=== PATIENT | male | born 1960 | race Caucasian/White ===

== ENCOUNTER 2019-07-10 11:15 | Inpatient (IN) | payer MEDICARE ==
[2019-07-10] MEDS ORDERED: SODIUM CHLORIDE 0.9% 1,000 ML IV STA ×2 (11:38)
[2019-07-10] MEDS ORDERED: INSULIN REGULAR 100 UNIT/ML VIAL IV ONE (11:41)
--- NOTE | 2019-07-10 11:44 | ED ---
General Adult HPI - General Chief complaint: Recheck/Abnormal Lab/Rx Stated complaint: Hyperglycemic Time Seen by Provider: 07/10/19 11:20 Source: patient, RN notes reviewed Mode of arrival: ambulatory Limitations: no limitations - History of Present Illness Initial comments: Patient is a pleasant 58-year-old male presenting to the emergency department with concerns for hyperglycemia. Patient has been off his insulin and metformin for the past at least 3 months. Patient has not checked his sugar and at least 2 months. Patient has had increased thirst and urinary frequency. Patient states his urine smells like sugar. He also states that is sticky. Patient checked his blood sugar today at 566. No fevers. No upper respiratory symptoms. No abdominal pain. - Related Data Allergies Allergy/AdvReac Type Severity Reaction Status Date / Time No Known Allergies Allergy Verified 07/10/19 11:23 Review of Systems ROS Statement: Those systems with pertinent positive or pertinent negative responses have been documented in the HPI. ROS Other: All systems not noted in ROS Statement are negative. Constitutional: Denies: fever Eyes: Denies: eye pain ENT: Denies: ear pain Respiratory: Denies: cough, dyspnea Cardiovascular: Denies: chest pain Endocrine: Reports: polydipsia, polyuria. Denies: fatigue Gastrointestinal: Denies: abdominal pain, nausea, vomiting Genitourinary: Reports: as per HPI. Denies: dysuria Musculoskeletal: Denies: back pain Skin: Denies: rash Neurological: Denies: weakness Past Medical History Past Medical History: COPD, Diabetes Mellitus, Fibromyalgia History of Any Multi-Drug Resistant Organisms: None Reported Past Surgical History: Appendectomy, Coronary Bypass/CABG, Heart Catheterization With Stent Smoking Status: Current every day smoker Past Alcohol Use History: Rare Past Drug Use History: Marijuana General Exam Limitations: no limitations General appearance: alert, in no apparent distress, obese Head exam: Present: normocephalic Eye exam: Present: normal appearance Neck exam: Present: normal inspection Respiratory exam: Present: wheezes (Mild expiratory wheeze) Cardiovascular Exam: Present: regular rate, normal rhythm GI/Abdominal exam: Present: soft. Absent: tenderness Extremities exam: Present: normal inspection. Absent: pedal edema, calf tenderness Neurological exam: Present: alert Psychiatric exam: Present: normal affect, normal mood Skin exam: Present: normal color Course Vital Signs 07/10/19 11:17 Temperature 98.9 F Pulse Rate 84 Respiratory 18 Rate Blood Pressure 155/98 O2 Sat by Pulse 93 L Oximetry - Reevaluation(s) Reevaluation #1: 07/10/19 11:44 Patient is a smoker with history of COPD. Patient denies any dyspnea and refuses nebulizer treatment. Medical Decision Making - Medical Decision Making Patient reevaluated and resting comfortably in bed. Blood sugar started to improve. Patient is acetone positive. Patient is updated on results and plan. Dr. Solitario has been paged for admission covering for hospital call. Patient is now agreeable to have chest x-ray done. Case was crusted detail with Dr. Isaac, who will admit covering for hospital call. Admission orders written. - Lab Data Result diagrams: 07/10/19 11:51 07/10/19 11:51 Lab Results 07/10/19 07/10/19 07/10/19 Range/Units 11:51 11:51 11:51 WBC 5.9 (3.8-10.6) k/uL RBC 5.52 (4.30-5.90) m/uL Hgb 16.5 (13.0-17.5) gm/dL Hct 51.4 (39.0-53.0) % MCV 93.1 (80.0-100.0) fL MCH 29.8 (25.0-35.0) pg MCHC 32.0 (31.0-37.0) g/dL RDW 13.1 (11.5-15.5) % Plt Count 182 (150-450) k/uL Neutrophils % 53 % Lymphocytes % 34 % Monocytes % 7 % Eosinophils % 2 % Basophils % 1 % Neutrophils # 3.1 (1.3-7.7) k/uL Lymphocytes # 2.0 (1.0-4.8) k/uL Monocytes # 0.4 (0-1.0) k/uL Eosinophils # 0.1 (0-0.7) k/uL Basophils # 0.1 (0-0.2) k/uL Sodium 132 L (137-145) mmol/L Potassium 4.6 (3.5-5.1) mmol/L Chloride 100 (98-107) mmol/L Carbon Dioxide 24 (22-30) mmol/L Anion Gap 8 mmol/L BUN 19 (9-20) mg/dL Creatinine 0.52 L (0.66-1.25) mg/dL Est GFR (CKD-EPI)AfAm >90 (>60 ml/min/1.73 sqM) Est GFR (CKD-EPI)NonAf >90 (>60 ml/min/1.73 sqM) Glucose 436 H (74-99) mg/dL POC Glucose (mg/dL) (75-99) mg/dL POC Glu Electronic Gaming Device Supervisor ID Calcium 9.4 (8.4-10.2) mg/dL Total Bilirubin 0.5 (0.2-1.3) mg/dL AST 24 (17-59) U/L ALT 24 (4-49) U/L Alkaline Phosphatase 126 (38-126) U/L Total Protein 6.8 (6.3-8.2) g/dL Albumin 3.7 (3.5-5.0) g/dL Urine Color Light Yellow Urine Appearance Clear (Clear) Urine pH 5.0 (5.0-8.0) Ur Specific [place] 1.034 (1.001-1.035) Urine Protein Negative (Negative) Urine Glucose (UA) 4+ H (Negative) Urine Ketones 2+ H (Negative) Urine Blood Negative (Negative) Urine Nitrite Negative (Negative) Urine Bilirubin Negative (Negative) Urine Urobilinogen <2.0 (<2.0) mg/dL Ur Leukocyte Esterase Negative (Negative) Acetone, Qual Positive (Negative) 07/10/19 07/10/19 07/10/19 Range/Units 12:09 12:38 13:21 WBC (3.8-10.6) k/uL RBC (4.30-5.90) m/uL Hgb (13.0-17.5) gm/dL Hct (39.0-53.0) % MCV (80.0-100.0) fL MCH (25.0-35.0) pg MCHC (31.0-37.0) g/dL RDW (11.5-15.5) % Plt Count (150-450) k/uL Neutrophils % % Lymphocytes % % Monocytes % % Eosinophils % % Basophils % % Neutrophils # (1.3-7.7) k/uL Lymphocytes # (1.0-4.8) k/uL Monocytes # (0-1.0) k/uL Eosinophils # (0-0.7) k/uL Basophils # (0-0.2) k/uL Sodium (137-145) mmol/L Potassium (3.5-5.1) mmol/L Chloride (98-107) mmol/L Carbon Dioxide (22-30) mmol/L Anion Gap mmol/L BUN (9-20) mg/dL Creatinine (0.66-1.25) mg/dL Est GFR (CKD-EPI)AfAm (>60 ml/min/1.73 sqM) Est GFR (CKD-EPI)NonAf (>60 ml/min/1.73 sqM) Glucose (74-99) mg/dL POC Glucose (mg/dL) 407 H 408 H 326 H (75-99) mg/dL POC Glu Electronic Gaming Device Supervisor Meli Kincaid Joanna Barrett, Kylee Calcium (8.4-10.2) mg/dL Total Bilirubin (0.2-1.3) mg/dL AST (17-59) U/L ALT (4-49) U/L Alkaline Phosphatase (38-126) U/L Total Protein (6.3-8.2) g/dL Albumin (3.5-5.0) g/dL Urine Color Urine Appearance (Clear) Urine pH (5.0-8.0) Ur Specific [place] (1.001-1.035) Urine Protein (Negative) Urine Glucose (UA) (Negative) Urine Ketones (Negative) Urine Blood (Negative) Urine Nitrite (Negative) Urine Bilirubin (Negative) Urine Urobilinogen (<2.0) mg/dL Ur Leukocyte Esterase (Negative) Acetone, Qual (Negative) Critical Care Time Critical Care Time: Yes Total Critical Care Time: 32 Disposition Clinical Impression: DKA (diabetic ketoacidoses) Disposition: ADMITTED IP TO THIS [facility] Condition: Serious Is patient prescribed a controlled substance at d/c from ED?: No Referrals: None,Stated [Primary Care Provider] - 1-2 days Decision Time: 13:40
[2019-07-10 12:07] LABS: Appearance,Urine Clear (Clear); Basophils # (A) 0.1 k/uL (0-0.2); Basophils % (A) 1 %; Bilirubin,Urine Negative (Negative); Blood,Urine Negative (Negative); Color,Urine Light Yellow; Eosinophils # (A) 0.1 k/uL (0-0.7); Eosinophils % (A) 2 %; Glucose,Urine (UA) 4+ (Negative); HCT 51.4 % (39.0-53.0); HGB 16.5 gm/dL (13.0-17.5); Leukocyte Esterase,Urine Negative (Negative); Lymphocytes % (A) 34 %; MCH 29.8 pg (25.0-35.0); MCV 93.1 fL (80.0-100.0); Mean Platelet Volume 8.3; Monocytes # (A) 0.4 k/uL (0-1.0); Monocytes % (A) 7 %; Neutrophils # (A) 3.1 k/uL (1.3-7.7); Neutrophils % (A) 53 %; Nitrite,Urine Negative (Negative); Platelet Count 182 k/uL (150-450); Protein,Urine Negative (Negative); RBC 5.52 m/uL (4.30-5.90); RDW 13.1 % (11.5-15.5); Specific Gravity,Urine 1.034 (1.001-1.035); Urobilinogen,Urine <2.0 mg/dL (<2.0); WBC 5.9 k/uL (3.8-10.6)
[2019-07-10 12:10] LABS: Glucose,Whole Blood 407 mg/dL (75-99)
[2019-07-10 12:13] LABS: Ketones,Urine 2+ (Negative)
[2019-07-10 12:40] LABS: ALT 24 U/L (4-49); AST 24 U/L (17-59); African American GFR (CKD) >90 (>60 ml/min/1.73 sqM); Albumin 3.7 g/dL (3.5-5.0); Alkaline Phosphatase 126 U/L (38-126); Anion Gap 8 mmol/L; Blood Urea Nitrogen 19 mg/dL (9-20); Calcium 9.4 mg/dL (8.4-10.2); Carbon Dioxide 24 mmol/L (22-30); Chloride 100 mmol/L (98-107); Glucose 436 mg/dL (74-99); Non-African American GFR(CKD) >90 (>60 ml/min/1.73 sqM); Potassium 4.6 mmol/L (3.5-5.1); Sodium 132 mmol/L (137-145); Total Bilirubin 0.5 mg/dL (0.2-1.3); Total Protein 6.8 g/dL (6.3-8.2)
[2019-07-10 12:40] LABS: Glucose,Whole Blood 408 mg/dL (75-99)
[2019-07-10 13:22] LABS: Glucose,Whole Blood 326 mg/dL (75-99)
[2019-07-10] MEDS ORDERED: NALOXONE 0.4 MG/ML 1 ML VIAL IV PRN (13:43)
[2019-07-10] MEDS ORDERED: Magnesium Replacement Protocol 1 EACH MISC MISCELLANE PRN (13:43)
[2019-07-10] MEDS ORDERED: Potassium Replacement Protocol 1 EACH MISC MISCELLANE PRN (13:43)
[2019-07-10] MEDS ORDERED: SODIUM CHLORIDE 0.9% 1,000 ML IV SCH (13:45)
[2019-07-10] MEDS ORDERED: INSULIN REGULAR 100 UNIT in SODIUM CHLORIDE 0.9% 100 ML IV SCH (14:00)
[2019-07-10 14:17] LABS: Glucose,Whole Blood 305 mg/dL (75-99)
--- NOTE | 2019-07-10 14:18 | XR ---
EXAMINATION TYPE: XR chest 2V DATE OF EXAM: 07/10/2019 HISTORY: cough. REFERENCE: NONE. FINDINGS: There has been a midline sternotomy. The heart is upper limits of normal in size. There is mild vascular prominence without edema. There i s some atelectasis in the right midlung. No definite pleural fluid is seen. IMPRESSION: 1. COPD. 2. BORDERLINE CARDIOMEGALY. 3. VASCULAR CONGESTION. 4. RIGHT MIDDLE LOBE ATELECTASIS.
[2019-07-10 15:00] LABS: VBG PH 7.34 (7.31-7.41)
[2019-07-10 15:27] LABS: Glucose,Whole Blood 301 mg/dL (75-99)
--- NOTE | 2019-07-10 15:33 | P.HPIM ---
History of Present Illness This is a pleasant 58 years old male with past medical history of type 2 diabetes mellitus, COPD, fibromyalgia, vertigo, psoriasis. He presents to the hospital because his sugar was high this morning on the meter as 566. Before he was on metformin 1000 twice a day and trulicity, however he stopped taking his medication for 2-3 months because he has no insurance and no medical doctor, is complaining of from polyuria and polydipsia No chest pain or dyspnea or abdominal pain, no nausea vomiting. No change in urine or bowel habits. He smokes about half pack per day, he does not want to quit after he consult however he agrees for nicotine patch while in-house, no alcohol, he smokes 3-4 joints off weed every day for his fibromyalgia and pain after he stopped taking Dilaudid and morphine Vitals are stable., Left showing unremarkable CBC, sodium 132, creatinine 0.5, glucose was more than 400 ask for 36, currently 305. UA is negative for infection. Positive for acetone Chest x-ray: No acute process, COPD and atelectasis Review of Systems CONSTITUTIONAL: No fever, no malaise, no fatigue. HEENT: No recent visual problems or hearing problems. Denied any sore throat. CARDIOVASCULAR: No orthopnea, PND, no palpitations, no syncope. PULMONARY: No shortness of breath, no cough, no hemoptysis. GASTROINTESTINAL: No diarrhea, no nausea, no vomiting, no abdominal pain. Normoactive bowel sounds. NEUROLOGICAL: No headaches, no weakness, no numbness. HEMATOLOGICAL: Denies any bleeding or petechiae. GENITOURINARY: Denies any burning micturition, frequency, or urgency. MUSCULOSKELETAL/RHEUMATOLOGICAL: Denies any joint pain, swelling, or any muscle pain. ENDOCRINE: Denies any polyuria or polydipsia. ROS unobtainable: due to endotracheal tube Past Medical History Past Medical History: COPD, Diabetes Mellitus, Fibromyalgia Additional Past Medical History / Comment(s): Ty II DM, Vertigo when head tilts back, Psoriasis, RAJESH LL edmena History of Any Multi-Drug Resistant Organisms: None Reported Past Surgical History: Appendectomy, Coronary Bypass/CABG, Heart Catheterization Additional Past Surgical History / Comment(s): Back-CA Past Anesthesia/Blood Transfusion Reactions: No Reported Reaction Past Psychological History: No Psychological Hx Reported Smoking Status: Current every day smoker Past Alcohol Use History: Rare Past Drug Use History: Marijuana - Past Family History Father History Unknown: Yes Family Medical History: Diabetes Mellitus Additional Family Medical History / Comment(s): of Colon CA Mother History Unknown: Yes Family Medical History: CVA/TIA Additional Family Medical History / Comment(s): Rheumatic fever-all valves replaced multiple times. from CVA Medications and Allergies Home Medications Medication Instructions Recorded Confirmed Type No Known Home Medications 07/10/19 07/10/19 History Allergies Allergy/AdvReac Type Severity Reaction Status Date / Time No Known Allergies Allergy Verified 07/10/19 14:35 Physical Exam Vitals: Vital Signs Temp Pulse Pulse Resp BP Pulse Ox 07/10/19 14:39 98.3 F 66 18 96 07/10/19 14:14 70 18 125/80 98 07/10/19 11:17 98.9 F 84 18 155/98 93 L Intake and Output 07/10/19 07/10/19 07/10/19 06:59 14:59 22:59 Intake Total 400 Balance 400 Intake: Intake, IV Titration 400 Amount Sodium Chloride 0.9% 1, 400 000 ml @ 200 mls/hr IV . Q5H [facility] Rx#:[id number] Other: Voiding Method Urinal Weight 156.943 kg -GENERAL: The patient is alert and oriented x3, not in any acute distress. Obese HEENT: Pupils are round and equally reacting to light. EOMI. No scleral icterus. No conjunctival pallor. Normocephalic, atraumatic. No pharyngeal erythema. No thyromegaly. CARDIOVASCULAR: S1 and S2 present. No murmurs, rubs, or gallops. PULMONARY: Chest is clear to auscultation, no wheezing or crackles. ABDOMEN: Soft, nontender, nondistended, normoactive bowel sounds. No palpable organomegaly. MUSCULOSKELETAL: No joint swelling or deformity. EXTREMITIES: No cyanosis, clubbing, or pedal edema. NEUROLOGICAL: Gross neurological examination did not reveal any focal deficits. SKIN: No rashes. No petechiae Results CBC & Chem 7: 07/10/19 11:51 07/10/19 11:51 Labs: Abnormal Lab Results - Last 24 Hours (Table) 07/10/19 07/10/19 07/10/19 Range/Units 11:51 11:51 12:09 Sodium 132 L (137-145) mmol/L Creatinine 0.52 L (0.66-1.25) mg/dL Glucose 436 H (74-99) mg/dL POC Glucose (mg/dL) 407 H (75-99) mg/dL Urine Glucose (UA) 4+ H (Negative) Urine Ketones 2+ H (Negative) 07/10/19 07/10/19 07/10/19 Range/Units 12:38 13:21 14:16 Sodium (137-145) mmol/L Creatinine (0.66-1.25) mg/dL Glucose (74-99) mg/dL POC Glucose (mg/dL) 408 H 326 H 305 H (75-99) mg/dL Urine Glucose (UA) (Negative) Urine Ketones (Negative) Thrombosis Risk Factor Assmnt - Choose All That Apply Each Factor Represents 1 point: Age 41-60 years, Obesity (BMI >25), Swollen legs (current) Other Risk Factors: No Other congenital or acquired thrombophilia - If yes, enter type in comment: Yes Thrombosis Risk Factor Assessment Total Risk Factor Score: 3 Thrombosis Risk Factor Assessment Level: Moderate Risk Assessment and Plan Assessment: Type 2 diabetes mellitus with hyperglycemia, uncontrolled Dehydration Noncompliance to medication and follow-up with PCP due to lack of insurance Fibromyalgia History of Vertigo History of psoriasis COPD, not an active issue Substance abuse including marijuana Plan: This is a pleasant 58 years old male who presents with uncontrolled high sugar d ue to noncompliance. Start metformin. Start patient on insulin sliding scale and monitor his sugar. Continue with IV fluids. Patient is counseled to quit his substance abuse, however he does not want to. Continue with nicotine patch. Consult to social work associate for lack of insurance Labs and medication were reviewed.. Continue same treatment. Continue with symptomatic treatment. Resume home medication. Monitor lytes and vitals. DVT and GI prophylaxis. Further recommendations of the clinical course of the patient DVT prophylaxis: Subcutaneous heparin GI Prophylaxis: Pepcid
[2019-07-10] MEDS ORDERED: D5-0.45% NACL WITH KCL 20MEQ/L 1,000 ML IV SCH (16:00)
[2019-07-10 16:50] LABS: Glucose,Whole Blood 311 mg/dL (75-99)
[2019-07-10] MEDS: metFORMIN 500 MG TAB PO SCH (17:29)
[2019-07-10] MEDS: INSULIN ASPART (NovoLOG) 100 UNIT/ML VIAL SQ SCH ×2 (17:29→20:17)
[2019-07-10] MEDS: NICOTINE 21MG/24HR PATCH TRANSDERM SCH (17:29)
[2019-07-10 20:06] LABS: Glucose,Whole Blood 226 mg/dL (75-99)
[2019-07-10] MEDS: FAMOTIDINE 20 MG/2 ML VIAL IV SCH (20:17)
[2019-07-10] MEDS: HEPARIN SODIUM,PORCINE 5,000 UNIT/ML 1 ML VIAL SQ SCH (20:17)
[2019-07-10] MEDS: amLODIPine 5 MG TAB PO SCH (20:17)
[2019-07-10] MEDS: SODIUM CHLORIDE 0.9% 1,000 ML IV SCH (20:19)
[2019-07-11 06:14] LABS: Glucose,Whole Blood 286 mg/dL (75-99)
[2019-07-11] MEDS: metFORMIN 500 MG TAB PO SCH ×2 (06:26→17:35)
[2019-07-11] MEDS: INSULIN ASPART (NovoLOG) 100 UNIT/ML VIAL SQ SCH ×4 (06:26→21:27)
[2019-07-11] MEDS: HEPARIN SODIUM,PORCINE 5,000 UNIT/ML 1 ML VIAL SQ SCH ×2 (07:52→21:26)
[2019-07-11] MEDS: amLODIPine 5 MG TAB PO SCH (07:52)
[2019-07-11] MEDS: FAMOTIDINE 20 MG/2 ML VIAL IV SCH ×2 (07:52→21:27)
[2019-07-11] MEDS: NICOTINE 21MG/24HR PATCH TRANSDERM SCH (07:52)
[2019-07-11] MEDS: SODIUM CHLORIDE 0.9% 1,000 ML IV SCH (07:53)
[2019-07-11 11:37] VITALS: BMI 49.5
[2019-07-11 11:50] LABS: Glucose,Whole Blood 313 mg/dL (75-99)
[2019-07-11] MEDS: NYSTATIN 100,000 UNIT/ML SUSP 500,000 UNIT/5 ML CUP PO SCH ×3 (12:23→21:26)
[2019-07-11] MEDS ORDERED: BENZOCAINE SPRAY 1 CAN TOPICAL STA (13:00)
[2019-07-11] MEDS ORDERED: BENZOCAINE SPRAY 1 CAN MUCOUS MEM PRN (13:00)
--- NOTE | 2019-07-11 13:06 | P.PN ---
Subjective This is a pleasant 58 years old male with past medical history of type 2 diabetes mellitus, COPD, fibromyalgia, vertigo, psoriasis. He presents to the hospital because his sugar was high this morning on the meter as 566. Before he was on metformin 1000 twice a day and trulicity, however he stopped taking his medication for 2-3 months because he has no insurance and no medical doctor, is complaining of from polyuria and polydipsia No chest pain or dyspnea or abdominal pain, no nausea vomiting. No change in urine or bowel habits. He smokes about half pack per day, he does not want to quit after he consult however he agrees for nicotine patch while in-house, no alcohol, he smokes 3-4 joints off weed every day for his fibromyalgia and pain after he stopped taking Dilaudid and morphine Vitals are stable., Left showing unremarkable CBC, sodium 132, creatinine 0.5, glucose was more than 400 ask for 36, currently 305. UA is negative for in fection. Positive for acetone Chest x-ray: No acute process, COPD and atelectasis 07/11/2019 Patient is awake, he was complaining from soreness in his tongue after his prescription white flakes felt to be related to fungal infection, patient was started on nystatin oral serial and benzocaine spray as needed. Vitals are stable. Sugar still elevated 313, despite starting on metformin 1000 twice a day, Actos discussed with the patient and he agrees to start insulin 70:30 15 units twice daily. Remains on normal saline at 75 mg Per hour Patient is counseled extensively about the importance of follow-up including with his family doctor, with preload supervisor once a year and asphalt smoother was here and he agrees social media sr strategy manager consulted for insurance issues Hemoglobin A1c is pending Review of Systems CONSTITUTIONAL: No fever, no malaise, no fatigue. HEENT: No recent visual problems or hearing problems. Denied any sore throat. CARDIOVASCULAR: No orthopnea, PND, no palpitations, no syncope. PULMONARY: No shortness of breath, no cough, no hemoptysis. GASTROINTESTINAL: No diarrhea, no nausea, no vomiting, no abdominal pain. Normoactive bowel sounds. NEUROLOGICAL: No headaches, no weakness, no numbness. HEMATOLOGICAL: Denies any bleeding or petechiae. GENITOURINARY: Denies any burning micturition, frequency, or urgency. MUSCULOSKELETAL/RHEUMATOLOGICAL: Denies any joint pain, swelling, or any muscle pain. ENDOCRINE: Denies any polyuria or polydipsia. Objective - Vital Signs Vital signs: Vital Signs Temp 97.3 F L 07/11/19 11:00 Pulse 65 07/11/19 11:00 Resp 20 07/11/19 11:00 BP 146/85 07/11/19 11:00 Pulse Ox 92 L 07/11/19 11:00 Intake & Output 07/10/19 07/11/19 07/11/19 18:59 06:59 18:59 Intake Total 2773.087 3340 320 Balance 4053.574 4012 320 Weight 156.943 kg 156.6 kg 156.6 kg Intake: IV 10 Invasive Line 1 10 Intake, IV Titration 408.983 975 Amount Insulin Regular 100 unit 8.983 In Sodium Chloride 0.9% 100 ml @ 0.05 UNITS/KG/HR 7.926 mls/hr IV .[id number] [facility] Rx#:[id number] Sodium Chloride 0.9% 1, 400 000 ml @ 200 mls/hr IV . Q5H [facility] Rx#:[id number] Sodium Chloride 0.9% 1, 975 000 ml @ 75 mls/hr IV . [id number] [facility] Rx#:[id number] Oral 600 600 320 Other: Voiding Method Urinal Urinal Urinal # Voids 1 2 - Exam -GENERAL: The patient is alert and oriented x3, not in any acute distress. Obese HEENT: Pupils are round and equally reacting to light. EOMI. No scleral icterus. No conjunctival pallor. Normocephalic, atraumatic. No pharyngeal erythema. No thyromegaly. CARDIOVASCULAR: S1 and S2 present. No murmurs, rubs, or gallops. PULMONARY: Chest is clear to auscultation, no wheezing or crackles. ABDOMEN: Soft, nontender, nondistended, normoactive bowel sounds. No palpable organomegaly. MUSCULOSKELETAL: No joint swelling or deformity. -EXTREMITIES: No cyanosis, clubbing, or pedal edema. Prolonged toenails NEUROLOGICAL: Gross neurological examination did not reveal any focal deficits. SKIN: No rashes. No petechiae - Labs CBC & Chem 7: 07/10/19 11:51 07/10/19 11:51 Labs: Abnormal Lab Results - Last 24 Hours (Table) 07/10/19 07/10/19 07/10/19 Range/Units 13:21 14:16 15:25 POC Glucose (mg/dL) 326 H 305 H 301 H (75-99) mg/dL 07/10/19 07/10/19 07/11/19 Range/Units 16:48 20:04 06:10 POC Glucose (mg/dL) 311 H 226 H 286 H (75-99) mg/dL 07/11/19 Range/Units 11:49 POC Glucose (mg/dL) 313 H (75-99) mg/dL
[2019-07-11 16:55] LABS: Glucose,Whole Blood 257 mg/dL (75-99)
[2019-07-11] MEDS ORDERED: INSULN ASP PRT/INSULIN ASPART 100 UNIT/ML 10 ML VIAL SQ SCH (17:30)
[2019-07-11 20:44] LABS: Glucose,Whole Blood 257 mg/dL (75-99)
[2019-07-12] MEDS: metFORMIN 500 MG TAB PO SCH ×2 (06:37→17:46)
[2019-07-12 07:04] LABS: Glucose,Whole Blood 249 mg/dL (75-99)
[2019-07-12] MEDS ORDERED: INSULN ASP PRT/INSULIN ASPART 100 UNIT/ML 10 ML VIAL SQ SCH ×3 (07:30→17:30)
[2019-07-12 08:07] VITALS: RESP 18
[2019-07-12] MEDS: NYSTATIN 100,000 UNIT/ML SUSP 500,000 UNIT/5 ML CUP PO SCH ×3 (08:18→17:46)
[2019-07-12] MEDS: FAMOTIDINE 20 MG/2 ML VIAL IV SCH (08:18)
[2019-07-12] MEDS: amLODIPine 5 MG TAB PO SCH (08:19)
[2019-07-12] MEDS: NICOTINE 21MG/24HR PATCH TRANSDERM SCH (08:19)
[2019-07-12] MEDS: HEPARIN SODIUM,PORCINE 5,000 UNIT/ML 1 ML VIAL SQ SCH (08:19)
[2019-07-12] MEDS: INSULIN ASPART (NovoLOG) 100 UNIT/ML VIAL SQ SCH ×3 (08:20→17:46)
[2019-07-12 11:23] LABS: Hemoglobin A1C 15.7 % (4.0-6.0)
[2019-07-12 12:00] LABS: Glucose,Whole Blood 240 mg/dL (75-99)
[2019-07-12] MEDS ORDERED: INSULN ASP PRT/INSULIN ASPART 100 UNIT/ML 10 ML VIAL SQ ONE (12:15)
[2019-07-12 16:16] VITALS: BP 138/85; PULSE 70; TEMP 98.2
[2019-07-12 16:55] LABS: Glucose,Whole Blood 252 mg/dL (75-99)
--- NOTE | 2019-07-12 23:42 | P.DS ---
Providers Date of admission: 07/10/19 13:43 Attending physician: Mart Isaac MD Primary care physician: Stated None Hospital Course: Diagnoses: Type 2 diabetes mellitus with hyperglycemia, uncontrolled Dehydration Noncompliance to medication and follow-up with PCP due to lack of insurance Hypertension, uncontrolled on admission Fibromyalgia Morbid Obesity with BMI of 49.5 History of Vertigo History of psoriasis COPD, not an active issue Substance abuse including marijuana Hospital course: This is a pleasant 58 years old male with past medical history of type 2 diabetes mellitus, COPD, fibromyalgia, vertigo, psoriasis. He presents to the hospital because his sugar was high in the morning on his glucometer as 566.Before he was on metformin 1000 twice a day and trulicity, however he stopped taking his medication for 2-3 months because he has no insurance and no medical doctor to follow up with, however later on patient found and he admits that he has Medicare but he does not have medicated which he wants to get that's why he stopped taking his medication and to follow up with PCP. His hemoglobin A1c elevated at 15.7%. Patient was started on metformin 1000 twice a day and insulin NovoLog 70:30 as 30 units twice a day (at first he wanted to take only 25 units twice a day, later in the afternoon his sugar was still elevated at 252, I talked to the patient through the phone from outside the hospital and instructed him to increase his dose to 30 units twice a day and he agrees) diabetic patient is a provided and patient was taught by the bedside nurse how to inject himself with insulin which actually he did and he was comfortable taking his insulin injections at home Patient was counseled about the importance of adherence to therapy and medication and he agrees. Also patient was counseled extensively about checking his sugar 4 times a day, to call his doctor , his blood pressure on discharge was 138/85 or to ED if his sugars less than 70 or more than 400, #symptoms of hypo-glycemia and how to deal with it Patient is counseled to lose weight and he agrees Norvasc was added for better blood pressure control, his blood pressure on discharge was 138/85 Importance of adherence to therapy is explained to the patient extensively and he verbalized understanding and acceptance Problems and management plan were discussed with the patient and he verbalized understanding and acceptance Patient was found stable and can be discharged home however he needs follow-up as an outpatient. Patient was instructed to follow up with PCP within one week and patient agrees. Patient was provided with the PCP name Dr. Garza, whom he wants us to call and make appointment by himself. Patient instructed if he couldn't find PCP within one week to call his health insurance to locate any by PCP for him and he agrees. Patient was informed about the [employer] [facility] for cheaper medicine (he showed me his Smart phone), is aware that he can get his metformin and Norvasc for $2-$4 or free from certain pharmacy like [facility]. Also confirmed with human services case manager the cost of his insulin NovoLog 70:30 is about $24 and he agrees for the cost. N.B: I wanted to keep the patient on Friday for better sugar control and to make appointment for the patient tomorrow, however he was adamant to leave today because he said [facility] TOM[facility] morning. Patient looks reliable and he showed intention to follow all instructions Gen: patient is a AAOx3, no distress. Obese CVS: S1-S2, RRR, no murmur Lungs: B/L CTA, no wheezing Abdomen: soft, no distention, no tenderness, positive bowel sounds Extremity: no leg edema or induration Time spent more than 35 minutes Patient Condition at Discharge: Serious Plan - Discharge Summary Discharge Rx Participant: Yes New Discharge Prescriptions: New metFORMIN HCL [Glucophage] 1,000 mg PO BID-W/MEALS #60 tab Nicotine 21Mg/24Hr Patch [Habitrol] 1 patch TRANSDERM DAILY #10 patch amLODIPine [Norvasc] 5 mg PO DAILY #30 tab Insuln Asp Prt/Insulin Aspart [NovoLOG MIX 70-30 VIAL] 25 unit SQ AC-BID #1 vial Discharge Medication List Insuln Asp Prt/Insulin Aspart [NovoLOG MIX 70-30 VIAL] 25 unit SQ AC-BID #1 vial 07/12/19 [Rx] Nicotine 21Mg/24Hr Patch [Habitrol] 1 patch TRANSDERM DAILY #10 patch 07/12/19 [Rx] amLODIPine [Norvasc] 5 mg PO DAILY #30 tab 07/12/19 [Rx] metFORMIN HCL [Glucophage] 1,000 mg PO BID-W/MEALS #60 tab 07/12/19 [Rx] Follow up Appointment(s)/Referral(s): Marvin Linder MD [REFERRING] - 1 Week (Please call Friday to make an appointment for follow up.) None,Stated [Primary Care Provider] - 1-2 days Patient Instructions/Handouts: Diabetic Ketoacidosis (DC), Hypoglycemia in a Person with Diabetes (DC), Hypoglycemia in a Person with Diabetes (GEN) Activity/Diet/Wound Care/Special Instructions: Pt does not have prescription drug coverage - he will need to go home on generic insulins/medications Utilize [employer] for prescription discounts. Increase Novolin 70/30 injection to 30 units twice a day (instead of 25 units). Follow up with Dr. Linder. Call Friday to make appointment. See print out from manager ethics for consistent carbohydrate diet. please call you health insurance provider to find a primary care doctor in the area you live, call your primary care doctor to make appointment within one week Check your sugar with glucometer 4 times a day, before each meal and at bedtime, keep the results in a log book and bring it to your doctor on your appointment -Call 911 and go to the nearest emergency room if your glucose less than 70 or more than 400 Discharge Disposition: HOME SELF-CARE
== END 2019-07-12 18:40 | disposition home or self-care (01) | DRG 638 ==
LOC: EC 11:15 → 3SCARD 13:43
PROVIDERS: ADMIT Internal Medicine; ATTEND Internal Medicine
DX: E11.65 Type 2 diabetes mellitus with hyperglycemia (principal); Z68.42 Body mass index [BMI] 45.0-49.9, adult; E66.01 Morbid (severe) obesity due to excess calories; E86.0 Dehydration; F17.210 Nicotine dependence, cigarettes, uncomplicated; J44.9 Chronic obstructive pulmonary disease, unspecified; M79.7 Fibromyalgia; L40.9 Psoriasis, unspecified; I25.10 Atherosclerotic heart disease of native coronary artery without angina pectoris; T38.3X6A Underdosing of insulin and oral hypoglycemic [antidiabetic] drugs, initial encounter; Z11.59 Encounter for screening for other viral diseases; Z91.120 Patient's intentional underdosing of medication regimen due to financial hardship; Z95.1 Presence of aortocoronary bypass graft; Z95.5 Presence of coronary angioplasty implant and graft; Z90.49 Acquired absence of other specified parts of digestive tract; Z80.0 Family history of malignant neoplasm of digestive organs; Z82.3 Family history of stroke; Z83.3 Family history of diabetes mellitus
CPT/HCPCS: 36415; 71046; 80053; 81003; 82009; 82803; 83036; 83880; 85025; 87635; 93005; 96360; 99291

== ENCOUNTER 2021-01-19 14:48 | Emergency (ER) | payer MEDICARE ==
[2021-01-19 15:24] VITALS: BP 127/80; PULSE 60; RESP 20; TEMP 98.8
[2021-01-19] MEDS ORDERED: MORPHINE SULFATE 4 MG/ML SYRINGE IVP STA ×2 (17:10→19:35)
[2021-01-19] MEDS ORDERED: SODIUM CHLORIDE 0.9% 1,000 ML IV STA (17:11)
[2021-01-19 17:42] LABS: Basophils % (A) 1 %; Eosinophils # (A) 0.1 k/uL (0-0.7); Eosinophils % (A) 1 %; HCT 52.2 % (39.0-53.0); HGB 16.7 gm/dL (13.0-17.5); Lymphocytes # (A) 1.5 k/uL (1.0-4.8); Lymphocytes % (A) 33 %; MCH 28.4 pg (25.0-35.0); Mean Platelet Volume 7.6; Monocytes # (A) 0.6 k/uL (0-1.0); Monocytes % (A) 12 %; Neutrophils # (A) 2.4 k/uL (1.3-7.7); Neutrophils % (A) 51 %; Platelet Count 187 k/uL (150-450); RBC 5.86 m/uL (4.30-5.90); RDW 14.1 % (11.5-15.5); WBC 4.7 k/uL (3.8-10.6)
--- NOTE | 2021-01-19 17:46 | ED ---
General Adult HPI - General Chief complaint: Extremity Problem,Nontraumatic Stated complaint: Cellulitis Left Leg Time Seen by Provider: 01/19/21 16:34 Source: patient, RN notes reviewed Mode of arrival: ambulatory Limitations: no limitations - History of Present Illness Initial comments: 60-year-old male with a past medical history of fibromyalgia, COPD, diabetes mellitus, morbid obesity, psoriasis presents to the emergency room for left leg pain. Patient states he is having left lower leg pain and erythema for the past few weeks. States it started out as blisters in the back of his leg and then became weepy and more painful. States it is swollen. Patient denies fevers but does admit to chills.patient is diabetic. Patient is supposed to be on blood thinners for cardiac reasons apparently but does not take these for Patient has no other complaints at this time including shortness of breath, chest pain, abdominal pain, nausea or vomiting, headache, or visual changes. - Related Data Home Medications Medication Instructions Recorded Confirmed Insulin NPH Hum/Reg Insulin Hm 40 unit SQ BID@0430,1630 01/19/21 01/19/21 [NovoLIN 70-30 100 UNIT/ML VIAL] Previous Rx's Medication Instructions Recorded metFORMIN HCL [Glucophage] 1,000 mg PO BID-W/MEALS #60 tab 07/12/19 Cephalexin [Keflex] 500 mg PO Q6HR 10 Days #40 cap 01/19/21 Allergies Allergy/AdvReac Type Severity Reaction Status Date / Time No Known Allergies Allergy Verified 01/19/21 15:24 Review of Systems ROS Statement: Those systems with pertinent positive or pertinent negative responses have been documented in the HPI. ROS Other: All systems not noted in ROS Statement are negative. Past Medical History Past Medical History: COPD, Diabetes Mellitus, Fibromyalgia Additional Past Medical History / Comment(s): Ty II DM, Vertigo when head tilts back, Psoriasis, RAJESH LL edmena History of Any Multi-Drug Resistant Organisms: None Reported Past Surgical History: Appendectomy, Coronary Bypass/CABG, Heart Catheterization Additional Past Surgical History / Comment(s): Back-CA Past Anesthesia/Blood Transfusion Reactions: No Reported Reaction Past Psychological History: No Psychological Hx Reported Smoking Status: Never smoker Past Alcohol Use History: Rare Past Drug Use History: Marijuana - Past Family History Father History Unknown: Yes Family Medical History: Diabetes Mellitus Additional Family Medical History / Comment(s): of Colon CA Mother History Unknown: Yes Family Medical History: CVA/TIA Additional Family Medical History / Comment(s): Rheumatic fever-all valves replaced multiple times. from CVA General Exam Limitations: no limitations General appearance: alert, in no apparent distress Head exam: Present: atraumatic Eye exam: Present: normal appearance, PERRL, EOMI. Absent: scleral icterus, conjunctival injection ENT exam: Present: normal exam, mucous membranes moist Neck exam: Present: normal inspection, full ROM. Absent: tenderness Respiratory exam: Present: normal lung sounds bilaterally. Absent: respiratory distress, wheezes Cardiovascular Exam: Present: regular rate, normal rhythm, normal heart sounds Extremities exam: Present: normal capillary refill (cap refill less than 2 seconds, DP pulse 2+ left lower extremity), calf tenderness (Calf tenderness is noted generalized fashion.), other (Erythema and drainage noted of the left calf.) Course Vital Signs 01/19/21 15:21 Temperature 98.8 F Pulse Rate 60 Respiratory 20 Rate Blood Pressure 127/80 O2 Sat by Pulse 95 Oximetry Medical Decision Making - Medical Decision Making Vitals are stable. Patient is afebrile. CBC shows a normal white blood cell count. CMP unremarkable. X-ray of the tib-fib shows subcutaneous edema without fracture seen. Ultrasound shows no evidence of DVT in the left leg. Discussed inpatient versus outpatient admission with patient. I did offer doing a couple days of IV antibiotics. However pt lives alone and has a cat and wants to go home. We will try outpatient therapy as he has not been on antibiotics yet however if symptoms do not improve he will return to the emergency room. - Lab Data Result diagrams: 01/19/21 17:35 01/19/21 17:35 Lab Results 01/19/21 01/19/21 01/19/21 Range/Units 17:35 17:35 17:35 WBC 4.7 (3.8-10.6) k/uL RBC 5.86 (4.30-5.90) m/uL Hgb 16.7 (13.0-17.5) gm/dL Hct 52.2 (39.0-53.0) % MCV 89.0 (80.0-100.0) fL MCH 28.4 (25.0-35.0) pg MCHC 32.0 (31.0-37.0) g/dL RDW 14.1 (11.5-15.5) % Plt Count 187 (150-450) k/uL MPV 7.6 Neutrophils % 51 % Lymphocytes % 33 % Monocytes % 12 % Eosinophils % 1 % Basophils % 1 % Neutrophils # 2.4 (1.3-7.7) k/uL Lymphocytes # 1.5 (1.0-4.8) k/uL Monocytes # 0.6 (0-1.0) k/uL Eosinophils # 0.1 (0-0.7) k/uL Basophils # 0.0 (0-0.2) k/uL Sodium 135 L (137-145) mmol/L Potassium 4.6 (3.5-5.1) mmol/L Chloride 102 (98-107) mmol/L Carbon Dioxide 27 (22-30) mmol/L Anion Gap 6 mmol/L BUN 18 (9-20) mg/dL Creatinine 0.59 L (0.66-1.25) mg/dL Est GFR (CKD-EPI)AfAm >90 (>60 ml/min/1.73 sqM) Est GFR (CKD-EPI)NonAf >90 (>60 ml/min/1.73 sqM) Glucose 96 (74-99) mg/dL Plasma Lactic Acid Nikolai 0.9 (0.7-2.0) mmol/L Calcium 8.8 (8.4-10.2) mg/dL Total Bilirubin 0.4 (0.2-1.3) mg/dL AST 41 (17-59) U/L ALT 43 (4-49) U/L Alkaline Phosphatase 79 (38-126) U/L Total Protein 7.1 (6.3-8.2) g/dL Albumin 3.6 (3.5-5.0) g/dL Disposition Clinical Impression: Cellulitis Disposition: HOME SELF-CARE Condition: Good Instructions (If sedation given, give patient instructions): Cellulitis (ED) Additional Instructions: Please take antibiotic as directed. Follow-up with your doctor. If symptoms are worsening return immediately to the emergency room. Prescriptions: Cephalexin [Keflex] 500 mg PO Q6HR 10 Days #40 cap Is patient prescribed a controlled substance at d/c from ED?: No Referrals: None,Stated [Primary Care Provider] - 1-2 days Time of Disposition: 19:30
[2021-01-19 17:53] LABS: ALT 43 U/L (4-49); AST 41 U/L (17-59); African American GFR (CKD) >90 (>60 ml/min/1.73 sqM); Albumin 3.6 g/dL (3.5-5.0); Alkaline Phosphatase 79 U/L (38-126); Anion Gap 6 mmol/L; Blood Urea Nitrogen 18 mg/dL (9-20); Calcium 8.8 mg/dL (8.4-10.2); Carbon Dioxide 27 mmol/L (22-30); Chloride 102 mmol/L (98-107); Glucose 96 mg/dL (74-99); Non-African American GFR(CKD) >90 (>60 ml/min/1.73 sqM); Potassium 4.6 mmol/L (3.5-5.1); Sodium 135 mmol/L (137-145); Total Bilirubin 0.4 mg/dL (0.2-1.3); Total Protein 7.1 g/dL (6.3-8.2)
--- NOTE | 2021-01-19 18:13 | XR ---
EXAMINATION TYPE: XR tibia fibula LT DATE OF EXAM: 01/19/2021 COMPARISON: NONE HISTORY: Leg swelling TECHNIQUE: 4 views FINDINGS: The tibia and fibula appear intact. Ankle mortise is anatomic. Knee joint is intact. There is apparent subcutaneous edema around the lower leg. There is plantar calcaneal spurring. IMPRESSION: Subcutaneous edema. No fracture.
--- NOTE | 2021-01-19 18:38 | US ---
EXAMINATION TYPE: US venous doppler duplex LE LT DATE OF EXAM: 01/19/2021 6:26 PM COMPARISON: NONE CLINICAL HISTORY: edema. Swelling, blisters on left leg SIDE PERFORMED: Left TECHNIQUE: The lower extremity deep venous system is examined utilizing real time linear array sonog vidhya with graded compression, doppler sonography and color-flow sonography. VESSELS IMAGED: Common Femoral Vein Deep Femoral Vein Greater Saphenous Vein * Femoral Vein Popliteal Vein Small Saphenous Vein * Proximal Calf Veins (* superficial vessels) Left Leg: Negative for DVT, unable to visualize left GSV and CFV due to pt morbid obesity IMPRESSION: . There no evidence of deep vein thrombosis in the left leg.
[2021-01-19] MEDS ORDERED: cefTRIAXone IN SWFI 1,000 MG/10 ML SYRINGE IVP STA (19:27)
[2021-01-19] MEDS ORDERED: ACET/COD 300 MG/30 MG STARTER PACK 6 TAB BTL PO STA (19:35)
== END 2021-01-19 20:10 | disposition home or self-care (01) ==
LOC: EC 14:48
DX: L03.116 Cellulitis of left lower limb (principal); E11.9 Type 2 diabetes mellitus without complications; J44.9 Chronic obstructive pulmonary disease, unspecified; M79.7 Fibromyalgia; E66.01 Morbid (severe) obesity due to excess calories; F12.90 Cannabis use, unspecified, uncomplicated; Z79.4 Long term (current) use of insulin; Z79.84 Long term (current) use of oral hypoglycemic drugs; Z68.43 Body mass index [BMI] 50.0-59.9, adult
CPT/HCPCS: 36415; 80053; 83605; 85025; 87040; 73590; 93971; 99284; 96374; 96375; J2270; J0696

== ENCOUNTER 2021-01-28 13:43 | Emergency (ER) | payer MEDICARE ==
[2021-01-28] MEDS ORDERED: cefTRIAXone 1,000 MG VIAL (IM USE) IM STA (15:21)
--- NOTE | 2021-01-28 15:24 | ED ---
General Adult HPI - General Chief complaint: Extremity Problem,Nontraumatic Stated complaint: lt leg pain,swelling Time Seen by Provider: 01/28/21 15:08 Source: patient, RN notes reviewed, old records reviewed Mode of arrival: wheelchair Limitations: no limitations - History of Present Illness Initial comments: 60-year-old male presenting with pain and swelling to the left leg. He's had drainage from several nonhealing blisters. He's been on oral Keflex for the past one week. He states he's on his last dose currently. He's had no fever and he states is been some improvement but overall is still has pain and swelling. - Related Data Home Medications Medication Instructions Recorded Confirmed Insulin NPH Hum/Reg Insulin Hm 40 unit SQ BID@0430,1630 01/19/21 01/19/21 [NovoLIN 70-30 100 UNIT/ML VIAL] Previous Rx's Medication Instructions Recorded metFORMIN HCL [Glucophage] 1,000 mg PO BID-W/MEALS #60 tab 07/12/19 Cephalexin [Keflex] 500 mg PO Q6HR 10 Days #40 cap 01/19/21 Cephalexin [Keflex] 500 mg PO Q6HR 10 Days #10 cap 01/28/21 Doxycycline [Vibramycin] 100 mg PO BID 10 Days #20 capsule 01/28/21 HYDROcodone/APAP 5-325MG [Marty 1 tab PO Q6HR PRN #12 tab 01/28/21 5-325] Allergies Allergy/AdvReac Type Severity Reaction Status Date / Time No Known Allergies Allergy Verified 01/28/21 14:19 Review of Systems ROS Statement: Those systems with pertinent positive or pertinent negative responses have been documented in the HPI. ROS Other: All systems not noted in ROS Statement are negative. Past Medical History Past Medical History: COPD, Diabetes Mellitus, Fibromyalgia Additional Past Medical History / Comment(s): Ty II DM, Vertigo when head tilts back, Psoriasis, RAJESH LL edmena History of Any Multi-Drug Resistant Organisms: None Reported Past Surgical History: Appendectomy, Coronary Bypass/CABG, Heart Catheterization Additional Past Surgical History / Comment(s): Back-CA Past Anesthesia/Blood Transfusion Reactions: No Reported Reaction Past Psychological History: No Psychological Hx Reported Smoking Status: Never smoker Past Alcohol Use History: Rare Past Drug Use History: Marijuana - Past Family History Father History Unknown: Yes Family Medical History: Diabetes Mellitus Additional Family Medical History / Comment(s): of Colon [place] Mother History Unknown: Yes Family Medical History: CVA/TIA Additional Family Medical History / Comment(s): Rheumatic fever-all valves replaced multiple times. from CVA General Exam Limitations: no limitations General appearance: alert, in no apparent distress Head exam: Present: atraumatic, normocephalic Eye exam: Present: normal appearance. Absent: PERRL, EOMI ENT exam: Present: normal exam Neck exam: Present: normal inspection. Absent: tenderness, meningismus Respiratory exam: Present: normal lung sounds bilaterally. Absent: respiratory distress, wheezes Cardiovascular Exam: Present: regular rate, normal rhythm GI/Abdominal exam: Present: soft. Absent: distended, tenderness, guarding Extremities exam: Present: pedal edema, other (Drainage from the posterior aspect of the left calf. There is soft tissue swelling as well. There is no crepitus.) Neurological exam: Present: alert, oriented X3 Psychiatric exam: Present: normal affect, normal mood Skin exam: Present: warm Course Vital Signs 01/28/21 14:17 Temperature 98.8 F Pulse Rate 56 L Respiratory 22 Rate Blood Pressure 143/78 O2 Sat by Pulse 94 L Oximetry Medical Decision Making - Medical Decision Making 60-year-old male presenting with pain and swelling to the left posterior calf, currently being treated for cellulitis. He has completed a course of Keflex. My initial plan was to admit this patient, obtain IV access, blood cultures, initiate IV antibiotics however the patient does not want to be admitted. He is requesting a refill of his oral medications and will follow-up with his primary care physician. I will add doxycycline on top of his Keflex prescription. He is given strict return parameters. He's been informed that he is welcome to return at any point for further evaluation and treatment. Disposition Clinical Impression: Cellulitis Disposition: HOME SELF-CARE Condition: Fair Instructions (If sedation given, give patient instructions): Cellulitis (ED) Prescriptions: Cephalexin [Keflex] 500 mg PO Q6HR 10 Days #10 cap HYDROcodone/APAP 5-325MG [Marty 5-325] 1 tab PO Q6HR PRN #12 tab PRN Reason: Pain Doxycycline [Vibramycin] 100 mg PO BID 10 Days #20 capsule Is patient prescribed a controlled substance at d/c from ED?: No Referrals: None,Stated [Primary Care Provider] - 1-2 days Marvin Linder MD [REFERRING] - 1-2 days [facility] [NON-STAFF] - 1-2 days Time of Disposition: 15:25
[2021-01-28 16:31] VITALS: BP 138/80; PULSE 61; RESP 15; TEMP 98.9
== END 2021-01-28 16:00 | disposition home or self-care (01) ==
LOC: EC 13:43
DX: L03.116 Cellulitis of left lower limb (principal); J44.9 Chronic obstructive pulmonary disease, unspecified; E11.9 Type 2 diabetes mellitus without complications; Z79.82 Long term (current) use of aspirin
CPT/HCPCS: 99283; 96372; J0696

== ENCOUNTER 2021-06-19 08:54 | Observation (INO) | payer MEDICARE ==
--- NOTE | 2021-06-19 09:17 | ED ---
Extremity Problem HPI - General Chief complaint: Extremity Problem,Nontraumatic Stated complaint: left leg & hip pain Time Seen by Provider: 06/19/21 09:00 Source: patient Mode of arrival: ambulatory Limitations: no limitations - History of Present Illness Initial comments: 60-year-old diabetic male presents to the emergency department with reported lef t lower extremity swelling. Patient has had cellulitis before in the extremity. He was seen in the emergency department in December and January for similar complaint. Reports that he has difficulty caring for his legs due to his size. He noticed over the past week that his leg became more red and was weeping. He has some pain in the leg that he cannot ambulate on it. He does not follow with the primary care doctor at this time. No fevers. Denies any trauma to the extremity. No history of DVT or PE. No chest pain or shortness of breath. No other alleviating, precipitating or modifying factors - Related Data Home Medications Medication Instructions Recorded Confirmed Insulin NPH Hum/Reg Insulin Hm 35 - 40 unit SQ BID 01/19/21 06/19/21 [NovoLIN 70-30 100 UNIT/ML VIAL] Previous Rx's Medication Instructions Recorded metFORMIN HCL [Glucophage] 1,000 mg PO BID-W/MEALS #60 tab 07/12/19 Allergies Allergy/AdvReac Type Severity Reaction Status Date / Time No Known Allergies Allergy Verified 06/19/21 12:48 Review of Systems ROS Statement: Those systems with pertinent positive or pertinent negative responses have been documented in the HPI. ROS Other: All systems not noted in ROS Statement are negative. Past Medical History Past Medical History: COPD, Diabetes Mellitus, Fibromyalgia Additional Past Medical History / Comment(s): Ty II DM, Vertigo when head tilts back, Psoriasis, RAJESH LL edmena History of Any Multi-Drug Resistant Organisms: None Reported Past Surgical History: Appendectomy, Coronary Bypass/CABG, Heart Catheterization Additional Past Surgical History / Comment(s): Back-CA Past Anesthesia/Blood Transfusion Reactions: No Reported Reaction Past Psychological History: No Psychological Hx Reported Smoking Status: Current every day smoker Past Alcohol Use History: Rare Past Drug Use History: Marijuana - Past Family History Father History Unknown: Yes Family Medical History: Diabetes Mellitus Additional Family Medical History / Comment(s): of Colon CA Mother History Unknown: Yes Family Medical History: CVA/TIA Additional Family Medical History / Comment(s): Rheumatic fever-all valves replaced multiple times. from CVA General Exam Limitations: no limitations General appearance: in no apparent distress, obese Head exam: Present: atraumatic, normocephalic, normal inspection Eye exam: Present: normal appearance Respiratory exam: Present: normal lung sounds bilaterally. Absent: respiratory distress, wheezes, rales, rhonchi, stridor Cardiovascular Exam: Present: regular rate, normal rhythm, normal heart sounds. Absent: systolic murmur, diastolic murmur, rubs, gallop, clicks GI/Abdominal exam: Present: soft, normal bowel sounds. Absent: distended, tenderness, guarding, rebound, rigid Extremities exam: Present: other (left calf > right calf. left calf erythematous. psoriasis overlying anterior knees. 4+ pitting edema) Course Vital Signs 06/19/21 06/19/21 06/19/21 08:57 10:23 12:28 Temperature 98.9 F Pulse Rate 79 68 70 Respiratory 22 16 18 Rate Blood Pressure 172/82 121/95 123/86 O2 Sat by Pulse 96 93 L 95 Oximetry 06/19/21 14:12 Temperature Pulse Rate 74 Respiratory 18 Rate Blood Pressure 122/90 O2 Sat by Pulse 95 Oximetry Medical Decision Making - Medical Decision Making On arrival patient is placed into room 26. History and physical exam was performed. IV access is established and laboratory studies are conducted. Ultrasound is performed of the left lower extremity which demonstrates no evidence of DVT. Patient is given a dose of Unasyn and Vanco. Recommended admission for wound care consult for which the patient did agree to. Spoke with Dr. Cagle who agreed to admit the patient. Patient's pending a bed on the in oor in stable condition - Lab Data Result diagrams: 06/19/21 09:39 06/19/21 09:39 Lab Results 06/19/21 06/19/21 Range/Units 09:39 09:39 WBC 6.9 (3.8-10.6) k/uL RBC 5.99 H (4.30-5.90) m/uL Hgb 17.5 (13.0-17.5) gm/dL Hct 53.9 H (39.0-53.0) % MCV 90.0 (80.0-100.0) fL MCH 29.3 (25.0-35.0) pg MCHC 32.5 (31.0-37.0) g/dL RDW 14.6 (11.5-15.5) % Plt Count 253 (150-450) k/uL MPV 7.3 Neutrophils % 67 % Lymphocytes % 22 % Monocytes % 8 % Eosinophils % 1 % Basophils % 1 % Neutrophils # 4.6 (1.3-7.7) k/uL Lymphocytes # 1.5 (1.0-4.8) k/uL Monocytes # 0.5 (0-1.0) k/uL Eosinophils # 0.1 (0-0.7) k/uL Basophils # 0.0 (0-0.2) k/uL Sodium 138 (137-145) mmol/L Potassium 4.6 (3.5-5.1) mmol/L Chloride 102 (98-107) mmol/L Carbon Dioxide 34 H (22-30) mmol/L Anion Gap 2 mmol/L BUN 15 (9-20) mg/dL Creatinine 0.66 (0.66-1.25) mg/dL Est GFR (CKD-EPI)AfAm >90 (>60 ml/min/1.73 sqM) Est GFR (CKD-EPI)NonAf >90 (>60 ml/min/1.73 sqM) Glucose 118 H (74-99) mg/dL Calcium 9.0 (8.4-10.2) mg/dL Total Bilirubin 0.7 (0.2-1.3) mg/dL AST 23 (17-59) U/L ALT 23 (4-49) U/L Alkaline Phosphatase 94 (38-126) U/L C-Reactive Protein 1.4 H (<1.0) mg/dL Total Protein 7.3 (6.3-8.2) g/dL Albumin 3.7 (3.5-5.0) g/dL Disposition Clinical Impression: Cellulitis, leg Disposition: ADMITTED IP TO THIS [facility] Condition: Stable Is patient prescribed a controlled substance at d/c from ED?: No Decision to Admit Reason: Admit from EC Decision Date: 06/19/21 Decision Time: 12:15
[2021-06-19] MEDS ORDERED: HYDROmorphone 1 MG/ML 1 ML SYRINGE IVP STA (09:18)
[2021-06-19] MEDS ORDERED: AMPICILLIN-SULBACTAM 3 GM in SODIUM CHLORIDE 0.9% 100 ML IVPB STA (09:18)
[2021-06-19 10:17] LABS: Potassium 4.6 mmol/L (3.5-5.1)
[2021-06-19 10:20] LABS: ALT 23 U/L (4-49); AST 23 U/L (17-59); African American GFR (CKD) >90 (>60 ml/min/1.73 sqM); Albumin 3.7 g/dL (3.5-5.0); Alkaline Phosphatase 94 U/L (38-126); Anion Gap 2 mmol/L; Basophils % (A) 1 %; Blood Urea Nitrogen 15 mg/dL (9-20); C Reactive Protein 1.4 mg/dL (<1.0); Carbon Dioxide 34 mmol/L (22-30); Chloride 102 mmol/L (98-107); Eosinophils # (A) 0.1 k/uL (0-0.7); Eosinophils % (A) 1 %; Glucose 118 mg/dL (74-99); HCT 53.9 % (39.0-53.0); HGB 17.5 gm/dL (13.0-17.5); Lymphocytes # (A) 1.5 k/uL (1.0-4.8); Lymphocytes % (A) 22 %; MCH 29.3 pg (25.0-35.0); MCHC 32.5 g/dL (31.0-37.0); Mean Platelet Volume 7.3; Monocytes # (A) 0.5 k/uL (0-1.0); Monocytes % (A) 8 %; Neutrophils # (A) 4.6 k/uL (1.3-7.7); Neutrophils % (A) 67 %; Non-African American GFR(CKD) >90 (>60 ml/min/1.73 sqM); Platelet Count 253 k/uL (150-450); RBC 5.99 m/uL (4.30-5.90); RDW 14.6 % (11.5-15.5); Sodium 138 mmol/L (137-145); Total Bilirubin 0.7 mg/dL (0.2-1.3); Total Protein 7.3 g/dL (6.3-8.2); WBC 6.9 k/uL (3.8-10.6)
--- NOTE | 2021-06-19 10:33 | US ---
EXAMINATION TYPE: US venous doppler duplex LE LT DATE OF EXAM: 06/19/2021 10:20 AM COMPARISON: Prior left lower extremity venous ultrasound January 19, 2021 CLINICAL HISTORY: lower extremity swelling. Edema SIDE PERFORMED: Left TECHNIQUE: The lower extremity deep venous system is examined utilizing real time linear array sonog vidhya with graded compression, doppler sonography and color-flow sonography. VESSELS IMAGED: Common Femoral Vein Deep Femoral Vein Greater Saphenous Vein * Femoral Vein Popliteal Vein Small Saphenous Vein * Proximal Calf Veins (* superficial vessels) Left Leg: Negative for DVT Grayscale, color doppler, spectral doppler imaging performed of the deep veins of the left lower extr emity. There is normal flow, compressibility, vascular waveforms. IMPRESSION: No ultrasound evidence for acute DVT on the current study. No significant change from pr ior.
[2021-06-19] MEDS ORDERED: VANCOMYCIN IV PER PHARMACY 1 EACH MISC MISCELLANE PRN ×2 (12:13→13:46)
[2021-06-19] MEDS ORDERED: VANCOMYCIN 2,500 MG in SODIUM CHLORIDE 0.9% 500 ML 500 ML IVPB STA (12:15)
[2021-06-19] MEDS ORDERED: NALOXONE 0.4 MG/ML 1 ML VIAL IV PRN (12:15)
[2021-06-19] MEDS: HYDROmorphone 1 MG/ML 1 ML SYRINGE IVP PRN ×3 (14:06→21:39)
--- NOTE | 2021-06-19 14:22 | P.HPIM ---
History of Present Illness H&P Date: 06/19/21 Chief Complaint: right leg swelling, pain 60-year-old man with history of diabetes, obesity class III, chronic pain with marijuana use presented for left lower extremity swelling and pain. Patient says that he's had this issue ongoing for several days but got much worse the last 24 hours. He reports associated chills, but denies fevers. He reports that is also associated with increased drainage from his leg. Denies nausea, vomiting, chest pain, palpitations, syncope, presyncope, abdominal pain, cough, dyspnea, constipation, diarrhea, dysuria, dyschezia, numbness/weakness of extremities. In the emergency room, patient is afebrile, 122/90, heart rate 74, 95% on room air. CBC is unremarkable. Chemistries show CO2 of 34. LFTs are unremarkable. CRP was elevated at 1.4. left-sided venous Doppler was done which was negative for DVT. All Systems reviewed and pertinent positives and negatives noted in HPI, all other symptoms are negative Gen: awake, alert HEENT: normocephalic, atraumatic, good hearing acuity, moist mucous membranes Resp: good air exchange, breathing comfortably with no accessory muscle use CVS: good distal perfusion x 4, GI: soft, NTTP, ND : no SPT, no CVAT, will catheter Notpresent MSK: no clubbing, bilateral lower extremity lymphedema, left greater than right, large area of erythema on the left lower extremity Neuro: non-focal, moving all extremities Psych: cooperative, euthymic mood Labs and imaging reviewed as above Assessment/plan: Left Lower Extremity Cellulitis Lymphedema, bilateral -Admit to observation -Vancomycin -f/u BCx -pain control -PT -Wound care DM Obesity, class III Marijuana abuse -restart patient's home insulin, add SSI -recommend outpatient weight loss referral -recommend cessation of marijuana Pt is a Full Code DVT PPx with heparin Past Medical History Past Medical History: COPD, Diabetes Mellitus, Fibromyalgia Additional Past Medical History / Comment(s): Ty II DM, Vertigo when head tilts back, Psoriasis, RAJESH LL edmena History of Any Multi-Drug Resistant Organisms: None Reported Past Surgical History: Appendectomy, Coronary Bypass/CABG, Heart Catheterization Additional Past Surgical History / Comment(s): Back-CA Past Anesthesia/Blood Transfusion Reactions: No Reported Reaction Past Psychological History: No Psychological Hx Reported Smoking Status: Current every day smoker Past Alcohol Use History: Rare Past Drug Use History: Marijuana - Past Family History Father History Unknown: Yes Family Medical History: Diabetes Mellitus Additional Family Medical History / Comment(s): of Colon CA Mother History Unknown: Yes Family Medical History: CVA/TIA Additional Family Medical History / Comment(s): Rheumatic fever-all valves replaced multiple times. from CVA Medications and Allergies Home Medications Medication Instructions Recorded Confirmed Type metFORMIN HCL [Glucophage] 1,000 mg PO BID-W/MEALS #60 tab 07/12/19 06/19/21 Rx Insulin NPH Hum/Reg Insulin Hm 35 - 40 unit SQ BID 01/19/21 06/19/21 History [NovoLIN 70-30 100 UNIT/ML VIAL] Allergies Allergy/AdvReac Type Severity Reaction Status Date / Time No Known Allergies Allergy Verified 06/19/21 12:48 Physical Exam Osteopathic Statement: *. No significant issues noted on an osteopathic structural exam other than those noted in the History and Physical/Consult. Vitals: Vital Signs Temp Pulse Resp BP Pulse Ox 06/19/21 12:28 70 18 123/86 95 06/19/21 10:23 68 16 121/95 93 L 06/19/21 08:57 98.9 F 79 22 172/82 96 Intake and Output 06/18/21 06/19/21 06/19/21 22:59 06:59 14:59 Other: Weight 181.437 kg Results CBC & Chem 7: 06/19/21 09:39 06/19/21 09:39 Labs: Abnormal Lab Results - Last 24 Hours (Table) 06/19/21 06/19/21 Range/Units 09:39 09:39 RBC 5.99 H (4.30-5.90) m/uL Hct 53.9 H (39.0-53.0) % Carbon Dioxide 34 H (22-30) mmol/L Glucose 118 H (74-99) mg/dL C-Reactive Protein 1.4 H (<1.0) mg/dL
[2021-06-19] MEDS: INSULIN ASPART (NovoLOG) 100 UNIT/ML VIAL SQ SCH (17:42)
[2021-06-19] MEDS: HEPARIN SODIUM,PORCINE/PF 5,000 UNIT/0.5 ML SYRINGE SQ SCH ×2 (17:43→21:26)
[2021-06-19 17:53] LABS: Glucose,Whole Blood 159 mg/dL (75-99)
[2021-06-19] MEDS: INSULN ASP PRT/INSULIN ASPART 100 UNIT/ML 10 ML VIAL SQ SCH (18:03)
[2021-06-19 20:44] LABS: Glucose,Whole Blood 98 mg/dL (75-99)
[2021-06-19] MEDS: VANCOMYCIN 2,500 MG in SODIUM CHLORIDE 0.9% 500 ML 500 ML IVPB SCH (21:26)
[2021-06-20] MEDS: HYDROmorphone 1 MG/ML 1 ML SYRINGE IVP PRN ×2 (02:36→06:27)
[2021-06-20] MEDS: VANCOMYCIN 2,500 MG in SODIUM CHLORIDE 0.9% 500 ML 500 ML IVPB SCH (06:26)
[2021-06-20 07:30] LABS: Glucose,Whole Blood 117 mg/dL (75-99)
[2021-06-20 07:50] VITALS: BP 127/81; PULSE 62; RESP 16; TEMP 98.1
[2021-06-20] MEDS: INSULIN ASPART (NovoLOG) 100 UNIT/ML VIAL SQ SCH ×2 (08:05→12:10)
[2021-06-20] MEDS: HEPARIN SODIUM,PORCINE/PF 5,000 UNIT/0.5 ML SYRINGE SQ SCH (08:07)
[2021-06-20] MEDS: INSULN ASP PRT/INSULIN ASPART 100 UNIT/ML 10 ML VIAL SQ SCH (08:07)
--- NOTE | 2021-06-20 10:37 | P.CONS ---
History of Present Illness - Reason for Consult Consult date: 06/20/21 wound care - History of Present Illness This is a 68-year-old gentleman being seen by the wound care center on for nonhealing ulceration to the left lower extremity. Patient states that he has history of cellulitis that approximately 6 weeks ago he had a ulceration he had utilized honey and it healed well however he developed new ulcerations to the posterior left lower extremity and increased redness to the anterior lower extremity. Ulceration measures 10 x 8 x 0.1 cm and is Limited to skin breakdown. The area is moist. No undermining or tunneling noted. 3+ edema noted to left lower extremity. Asians past medical history significant for ED, diabetes, fibromyalgia current every day smoker. Review Of Systems: Constitutional: No fever, no chills, no night sweats. No weight change. No weakness, fatigue or lethargy. No daytime sleepiness. Integumentary:reports wounds, no lesions. No rash or pruritus. No unusual bruising. No change in hair or nails. Physical exam: General Appearance: Alert, cooperative, no distress, appears stated age. Skin: See HPI all other Skin color, texture, tugor normal, no rashes or lesions. Neurologic: Alert oriented x3 Assessment: 1. Nonhealing ulceration Limited to skin breakdown to left calf 2. Diabetes with skin ulceration 3. Chronic venous hypertension of left lower extremity with inflammation and ulceration Plan: 1.Apply absortive silver moisten, gauze, and rolled gauze. Wrap with jordon wrap for compression. May change outer dressing daily PRN. Keep silver in place and only change on Mon, Wed, Fri. Keep leg elevated. Patient would benefit from continued advance wound care. We'll be happy to see him in the wound care center. Thank you for the consultation any questions please contact the wound care center DNP note has been reviewed and discussed with Dr. Lowe and the impression and plan of care has been directed as dictated. Past Medical History Past Medical History: COPD, Diabetes Mellitus, Fibromyalgia Additional Past Medical History / Comment(s): Ty II DM, Vertigo when head tilts back, Psoriasis, RAJESH LL edmena History of Any Multi-Drug Resistant Organisms: None Reported Past Surgical History: Appendectomy, Coronary Bypass/CABG, Heart Catheterization Additional Past Surgical History / Comment(s): Back-CA Past Anesthesia/Blood Transfusion Reactions: No Reported Reaction Past Psychological History: No Psychological Hx Reported Smoking Status: Current every day smoker Past Alcohol Use History: Rare Past Drug Use History: Marijuana - Past Family History Father History Unknown: Yes Family Medical History: Diabetes Mellitus Additional Family Medical History / Comment(s): of Colon CA Mother History Unknown: Yes Family Medical History: CVA/TIA Additional Family Medical History / Comment(s): Rheumatic fever-all valves replaced multiple times. from CVA Medications and Allergies Home Medications Medication Instructions Recorded Confirmed Type metFORMIN HCL [Glucophage] 1,000 mg PO BID-W/MEALS #60 tab 07/12/19 06/19/21 Rx Insulin NPH Hum/Reg Insulin Hm 35 - 40 unit SQ BID 01/19/21 06/19/21 History [NovoLIN 70-30 100 UNIT/ML VIAL] Allergies Allergy/AdvReac Type Severity Reaction Status Date / Time No Known Allergies Allergy Verified 06/19/21 12:48 Physical Exam Vitals: Vital Signs Temp Pulse Pulse Resp BP BP Pulse Ox 06/20/21 07:00 98.1 F 62 16 127/81 97 06/20/21 02:25 97.8 F 64 18 135/86 92 L 06/19/21 20:40 97.7 F 61 18 128/81 93 L 06/19/21 20:00 17 06/19/21 14:12 74 18 122/90 95 06/19/21 12:28 70 18 123/86 95 Intake and Output 06/19/21 06/20/21 06/20/21 22:59 06:59 14:59 Intake Total 118 Balance 118 Intake: Oral 118 Other: # Voids 1 1 Weight 181.437 kg Results CBC & Chem 7: 06/19/21 09:39 06/19/21 09:39 Labs: Abnormal Lab Results - Last 24 Hours (Table) 06/19/21 06/19/21 06/20/21 Range/Units 09:39 17:34 07:29 Carbon Dioxide 34 H (22-30) mmol/L Glucose 118 H (74-99) mg/dL POC Glucose (mg/dL) 159 H 117 H (75-99) mg/dL C-Reactive Protein 1.4 H (<1.0) mg/dL Assessment and Plan (1) Non-pressure chronic ulcer of left calf limited to breakdown of skin Current Visit: Yes Status: Acute Code(s): L97.221 - NON-PRS CHRONIC ULCER OF LEFT CALF LIMITED TO BRKDWN SKIN SNOMED Code(s): 66497191977781306 (2) Diabetes with skin ulcer Current Visit: Yes Status: Acute Code(s): E11.622 - TYPE 2 DIABETES MELLITUS WITH OTHER SKIN ULCER; L98.499 - NON-PRESSURE CHRONIC ULCER OF SKIN OF SITES W UNSP SEVERITY SNOMED Code(s): 82093989 (3) Chronic venous hypertension (idiopathic) with ulcer and inflammation of left lower extremity Current Visit: Yes Status: Acute Code(s): I87.332 - CHRONIC VENOUS HTN W ULCER AND INFLAMMATION OF L LOW EXTREM; L97.929 - NON-PRS CHRONIC ULC UNSP PRT OF L LOW LEG W UNSP SEVERITY SNOMED Code(s): 759221206096386
[2021-06-20 10:49] LABS: Basophils # (A) 0.03 X 10*3/uL (0.00-0.10); Basophils % (A) 0.5 %; Eosinophils # (A) 0.07 X 10*3/uL (0.04-0.35); Eosinophils % (A) 1.1 %; HCT 52.1 % (39.6-50.0); Immature Grans, Automated 0.8 %; Lymphocytes # (A) 1.47 X 10*3/uL (0.90-5.00); Lymphocytes % (A) 22.8 %; MCH 27.5 pg (27.0-32.0); MCHC 30.7 g/dL (32.0-37.0); MCV 89.7 fL (80.0-97.0); Mean Platelet Volume 9.9 fL (9.5-12.2); Monocytes # (A) 0.74 X 10*3/uL (0.20-1.00); Monocytes % (A) 11.5 %; NRBC Per 100 WBC 0 /100 WBCS (0.0-0.0); Neutrophils # (A) 4.08 X 10*3/uL (1.80-7.70); Neutrophils % (A) 63.3 %; Platelet Count 231 X 10*3/uL (140-440); RBC 5.81 X 10*6/uL (4.40-5.60); RDW 14.6 % (11.5-14.5); WBC 6.44 X 10*3/uL (4.50-10.00)
[2021-06-20 11:07] LABS: African American GFR (CKD) 118.9 (60.0-200.0); BUN/Creat Ratio 14.86 Ratio (12.00-20.00); Blood Urea Nitrogen 10.4 mg/dL (9.0-27.0); Calcium 8.9 mg/dL (8.7-10.3); Magnesium 2.1 mg/dL (1.5-2.4); Non-African American GFR(CKD) 102.6 (60.0-200.0); Potassium 4.5 mmol/L (3.5-5.5)
[2021-06-20 11:47] LABS: Glucose,Whole Blood 109 mg/dL (75-99)
--- NOTE | 2021-06-20 14:55 | P.DS ---
Providers Date of admission: 06/19/21 12:16 Expected date of discharge: 06/20/21 Attending physician: Yary Cagle MD Primary care physician: Stated None Hospital Course: 60-year-old man with history of diabetes, obesity class III, chronic pain with marijuana use presented for left lower extremity swelling and pain. In the emergency room, patient is afebrile, 122/90, heart rate 74, 95% on room air. CBC is unremarkable. Chemistries show CO2 of 34. LFTs are unremarkable. CRP was elevated at 1.4. Left-sided venous Doppler was done which was negative for DVT. Left Lower Extremity Cellulitis Lymphedema, bilateral -Admitted to observation. Treated with vancomycin IV. Cellulitis was improving with vancomycin. He was switch to PO clindamycin on discharge for total 7 day course. He will establish care with a PCP and then arrange home care services for lymphedema wrappings through PCPs office. Advised to complete course of abx prior to fully wrapping leg. Seen by wound care and provided wound recs. DM Obesity, class III Marijuana abuse -restarted patient's home insulin, no changes made to insulin or metformin on discharge. -recommend outpatient weight loss referral -recommend cessation of marijuana Gen: awake, alert HEENT: normocephalic, atraumatic, good hearing acuity, moist mucous membranes Resp: good air exchange, breathing comfortably with no accessory muscle use CVS: good distal perfusion x 4, GI: soft, NTTP, ND : no SPT, no CVAT, will catheter Notpresent MSK: no clubbing, bilateral lower extremity lymphedema, left greater than right, large area of erythema on the left lower extremity Neuro: non-focal, moving all extremities Psych: cooperative, euthymic mood Patient Condition at Discharge: Good Plan - Discharge Summary Discharge Rx Participant: No New Discharge Prescriptions: New clindamycin HCL [Cleocin] 300 mg PO Q8H #18 cap Continue metFORMIN HCL [Glucophage] 1,000 mg PO BID-W/MEALS #60 tab Insulin NPH Hum/Reg Insulin Hm [NovoLIN 70-30 100 UNIT/ML VIAL] 35 - 40 unit SQ BID Discharge Medication List metFORMIN HCL [Glucophage] 1,000 mg PO BID-W/MEALS #60 tab 07/12/19 [Rx] Insulin NPH Hum/Reg Insulin Hm [NovoLIN 70-30 100 UNIT/ML VIAL] 35 - 40 unit SQ BID 01/19/21 [History] clindamycin HCL [Cleocin] 300 mg PO Q8H #18 cap 06/20/21 [Rx] Follow up Appointment(s)/Referral(s): None,Stated [Primary Care Provider] - 1-2 days Wound Center,[facility] [NON-STAFF] - 1 Week Patient Instructions/Handouts: Cellulitis (GEN) Discharge Disposition: HOME SELF-CARE
[2021-06-21] MEDS ORDERED: VANCOMYCIN TROUGH DUE 1 EACH MISC MISCELLANE ONE (05:00)
== END 2021-06-20 13:50 | disposition home or self-care (01) ==
LOC: EC 08:54 → 6NMEDSUR 12:16 → 5NMEDONC 15:52 → 6NMEDSUR 17:08
PROVIDERS: ADMIT Internal Medicine; ATTEND Internal Medicine
DX: L03.116 Cellulitis of left lower limb (principal); I87.332 Chronic venous hypertension (idiopathic) with ulcer and inflammation of left lower extremity; L97.221 Non-pressure chronic ulcer of left calf limited to breakdown of skin; E11.622 Type 2 diabetes mellitus with other skin ulcer; I89.0 Lymphedema, not elsewhere classified; J44.9 Chronic obstructive pulmonary disease, unspecified; M79.7 Fibromyalgia; L40.9 Psoriasis, unspecified; F17.200 Nicotine dependence, unspecified, uncomplicated; G89.29 Other chronic pain; E66.9 Obesity, unspecified; Z68.43 Body mass index [BMI] 50.0-59.9, adult; R42 Dizziness and giddiness; Z71.3 Dietary counseling and surveillance; Z79.4 Long term (current) use of insulin; Z79.84 Long term (current) use of oral hypoglycemic drugs; Z95.1 Presence of aortocoronary bypass graft; Z90.49 Acquired absence of other specified parts of digestive tract; Z83.3 Family history of diabetes mellitus; Z80.0 Family history of malignant neoplasm of digestive organs; Z82.3 Family history of stroke; Z82.49 Family history of ischemic heart disease and other diseases of the circulatory system
CPT/HCPCS: 96376 ×3; 96366 ×3; 96372 ×3; 96365; 96367; 96375; 99284; 36415; 80053; 80048; 83735; 85025 ×2; 86140; 87040; 87070; 87205; 87077; 87186; 93971; G0378 ×2; J3370 ×2; J1170 ×2; J0295; J1644 ×2

== ENCOUNTER → 2021-09-06 | Outpatient (CLI) | payer MEDICARE ==
[2021-09-06 23:36] LABS: Basophils # (A) 0.04 X 10*3/uL (0.00-0.10); Basophils % (A) 0.6 %; Eosinophils # (A) 0.08 X 10*3/uL (0.04-0.35); Eosinophils % (A) 1.2 %; HCT 54.2 % (39.6-50.0); HGB 16.9 g/dL (13.0-17.0); Immature Grans, Automated 0.9 %; Lymphocytes # (A) 1.87 X 10*3/uL (0.90-5.00); Lymphocytes % (A) 28.1 %; MCH 28.2 pg (27.0-32.0); MCHC 31.2 g/dL (32.0-37.0); MCV 90.3 fL (80.0-97.0); Mean Platelet Volume 11.1 fL (9.5-12.2); Monocytes # (A) 0.63 X 10*3/uL (0.20-1.00); Monocytes % (A) 9.5 %; NRBC Per 100 WBC 0 /100 WBCS (0.0-0.0); Neutrophils # (A) 3.97 X 10*3/uL (1.80-7.70); Neutrophils % (A) 59.7 %; Platelet Count 227 X 10*3/uL (140-440); RDW 14.3 % (11.5-14.5); WBC 6.65 X 10*3/uL (4.50-10.00)
[2021-09-07 00:06] LABS: African American GFR (CKD) 122.3 (60.0-200.0); Non-African American GFR(CKD) 105.5 (60.0-200.0)
[2021-09-07 00:07] LABS: Hepatitis B Surface Antigen Nonreactive (Nonreactive)
== END | disposition home or self-care (01) ==
LOC: LABWHC1 15:40
PROVIDERS: ATTEND Nurse Practitioner Family
DX: L40.0 Psoriasis vulgaris (principal)
CPT/HCPCS: 36415; 82565; 84450; 84460; 85025; 86480; 86706; 87340

== ENCOUNTER → 2022-02-06 | Outpatient (CLI) | payer MEDICARE ==
[2022-02-07 01:59] LABS: ALT 43 U/L (10-49); AST 28 U/L (14-35); African American GFR (CKD) 118.4 (60.0-200.0); Albumin 4.1 g/dL (3.8-4.9); Albumin/Globulin Ratio 1.29 (1.60-3.17); Alkaline Phosphatase 91 U/L (41-126); BUN/Creat Ratio 13.71 Ratio (12.00-20.00); Blood Urea Nitrogen 9.5 mg/dL (9.0-27.0); Calcium 9.2 mg/dL (8.7-10.3); Carbon Dioxide 28.6 mmol/L (20.0-27.5); Chloride 98 mmol/L (96-109); Chol/HDL Ratio 6.41 Ratio; Globulin 3.2 g/dL (1.6-3.3); Glucose 131 mg/dL (70-110); LDL Cholesterol,Calculated 149.9 mg/dL (0.0-131.0); Non-African American GFR(CKD) 102.2 (60.0-200.0); Potassium 4.4 mmol/L (3.5-5.5); Sodium 139 mmol/L (135-145); Total Protein 7.3 g/dL (6.2-8.2)
== END | disposition home or self-care (01) ==
LOC: LABWHC1 14:27
PROVIDERS: ATTEND Dermatology MOHS-Micrographic Surgery
DX: I10 Essential (primary) hypertension (principal); I25.10 Atherosclerotic heart disease of native coronary artery without angina pectoris; E11.9 Type 2 diabetes mellitus without complications; R20.2 Paresthesia of skin; R07.9 Chest pain, unspecified; G47.30 Sleep apnea, unspecified; L40.0 Psoriasis vulgaris
CPT/HCPCS: 36415; 80053; 80061; 83036; 84439; 84443; 93005

== ENCOUNTER 2022-02-08 15:02 | Inpatient (IN) | payer MEDICARE ==
--- NOTE | 2022-02-08 16:17 | XR ---
EXAMINATION TYPE: XR chest 2V DATE OF EXAM: 02/08/2022 COMPARISON: 07/10/2019 INDICATION: Chest pain TECHNIQUE: Frontal and lateral views of the chest are obtained. FINDINGS: The heart size is only prominent. The pulmonary vasculature is somewhat prominent. No suspicious focal consolidation is evident. Some minimal platelike atelectasis at the right lung ba se is likely present. Mild diffuse increased lung markings are present. Consider pulmonary edema. IMPRESSION: 1. Clinical correlation recommended for volume overload or early congestive heart failure. 2. Some minimal plate atelectasis at the right base.
--- NOTE | 2022-02-08 17:20 | ED ---
Chest Pain HPI - General Chief Complaint: Chest Pain Stated Complaint: Weakness,L arm numbness-sent by PCP Time Seen by Provider: 02/08/22 16:44 Source: patient Mode of arrival: wheelchair - History of Present Illness MD Complaint: chest pain Onset/Timin -: days(s) Onset: during rest Pain Location: left chest Pain Radiation: LUE Severity: moderate Quality: dull Consistency: intermittent Improves With: nothing Worsens With: nothing Treatments Prior to Arrival: none - Related Data Home Medications Medication Instructions Recorded Confirmed Insulin NPH Hum/Reg Insulin Hm 35 - 40 unit SQ BID 01/19/21 06/19/21 [NovoLIN 70-30 100 UNIT/ML VIAL] Previous Rx's Medication Instructions Recorded metFORMIN HCL [Glucophage] 1,000 mg PO BID-W/MEALS #60 tab 07/12/19 clindamycin HCL [Cleocin] 300 mg PO Q8H #18 cap 06/20/21 Allergies Allergy/AdvReac Type Severity Reaction Status Date / Time No Known Allergies Allergy Verified 02/08/22 15:16 Review of Systems ROS Statement: Those systems with pertinent positive or pertinent negative responses have been documented in the HPI. ROS Other: All systems not noted in ROS Statement are negative. Constitutional: Denies: fever, chills Respiratory: Denies: cough, dyspnea Cardiovascular: Reports: chest pain, edema. Denies: palpitations, orthopnea, syncope Gastrointestinal: Denies: abdominal pain, nausea, vomiting Genitourinary: Denies: dysuria Musculoskeletal: Denies: back pain Skin: Denies: rash Neurological: Denies: headache, weakness, numbness Past Medical History Past Medical History: COPD, Diabetes Mellitus, Fibromyalgia Additional Past Medical History / Comment(s): Ty II DM, Vertigo when head tilts back, Psoriasis, RAJESH LL edmena History of Any Multi-Drug Resistant Organisms: None Reported Past Surgical History: Appendectomy, Coronary Bypass/CABG, Heart Catheterization Additional Past Surgical History / Comment(s): Back-CA Past Anesthesia/Blood Transfusion Reactions: No Reported Reaction Past Psychological History: No Psychological Hx Reported Smoking Status: Current every day smoker Past Alcohol Use History: Rare Past Drug Use History: Marijuana - Past Family History Father History Unknown: Yes Family Medical History: Diabetes Mellitus Additional Family Medical History / Comment(s): of Colon CA Mother History Unknown: Yes Family Medical History: CVA/TIA Additional Family Medical History / Comment(s): Rheumatic fever-all valves replaced multiple times. from CVA General Exam General appearance: alert, in no apparent distress Head exam: Present: atraumatic, normocephalic Eye exam: Present: normal appearance. Absent: scleral icterus, conjunctival injection ENT exam: Present: normal oropharynx Neck exam: Present: normal inspection Respiratory exam: Present: normal lung sounds bilaterally. Absent: respiratory distress, wheezes, rales, rhonchi, stridor Cardiovascular Exam: Present: normal rhythm, tachycardia, normal heart sounds. Absent: systolic murmur, diastolic murmur, rubs, gallop GI/Abdominal exam: Present: soft. Absent: distended, tenderness, guarding, rebound, rigid, mass Extremities exam: Present: normal inspection, normal capillary refill. Absent: pedal edema, calf tenderness Back exam: Present: normal inspection. Absent: CVA tenderness (R), CVA tenderness (L) Neurological exam: Present: alert Skin exam: Present: warm, dry, intact, normal color. Absent: rash Course Vital Signs 02/08/22 02/08/22 02/08/22 15:14 16:45 17:33 Temperature 97.2 F L Pulse Rate 67 59 L 60 Respiratory 18 18 18 Rate Blood Pressure 147/88 123/93 130/90 O2 Sat by Pulse 92 L 95 93 L Oximetry 02/08/22 18:49 Temperature Pulse Rate 57 L Respiratory 18 Rate Blood Pressure 132/87 O2 Sat by Pulse 94 L Oximetry Disposition Clinical Impression: Chest pain Disposition: ADMITTED IP TO THIS HOSP Condition: Good Instructions (If sedation given, give patient instructions): Chest Pain (ED) Is patient prescribed a controlled substance at d/c from ED?: No Referrals: Marvin Linder MD [Primary Care Provider] - 1-2 days
[2022-02-08 17:30] LABS: Basophils # (A) 0.1 k/uL (0-0.2); Basophils % (A) 1 %; Eosinophils # (A) 0.1 k/uL (0-0.7); Eosinophils % (A) 1 %; HCT 52.6 % (39.0-53.0); HGB 17.2 gm/dL (13.0-17.5); Lymphocytes % (A) 30 %; MCH 29.6 pg (25.0-35.0); MCHC 32.7 g/dL (31.0-37.0); MCV 90.7 fL (80.0-100.0); Mean Platelet Volume 8.2; Monocytes # (A) 0.6 k/uL (0-1.0); Monocytes % (A) 9 %; Neutrophils # (A) 3.7 k/uL (1.3-7.7); Neutrophils % (A) 56 %; Platelet Count 210 k/uL (150-450); RDW 13.6 % (11.5-15.5); WBC 6.6 k/uL (3.8-10.6)
[2022-02-08 18:05] LABS: Partial Thromboplastin Time 24.6 sec (22.0-30.0); Prothrombin Time 10.3 sec (9.0-12.0)
[2022-02-08 18:14] LABS: ALT 34 U/L (4-49); AST 27 U/L (17-59); African American GFR (CKD) >90 (>60 ml/min/1.73 sqM); Albumin 3.5 g/dL (3.5-5.0); Alkaline Phosphatase 78 U/L (38-126); Anion Gap 7 mmol/L; Blood Urea Nitrogen 14 mg/dL (9-20); Calcium 8.6 mg/dL (8.4-10.2); Carbon Dioxide 29 mmol/L (22-30); Chloride 102 mmol/L (98-107); Glucose 110 mg/dL (74-99); Magnesium 1.9 mg/dL (1.6-2.3); Non-African American GFR(CKD) >90 (>60 ml/min/1.73 sqM); Potassium 4.2 mmol/L (3.5-5.1); Sodium 138 mmol/L (137-145); Total Bilirubin 0.4 mg/dL (0.2-1.3); Total Protein 6.6 g/dL (6.3-8.2)
[2022-02-08] MEDS ORDERED: MORPHINE SULFATE 4 MG/ML SYRINGE IV STA (18:30)
[2022-02-08] MEDS ORDERED: MORPHINE SULFATE 4 MG/ML SYRINGE IV PRN (19:00)
[2022-02-08] MEDS ORDERED: NITROGLYCERIN SL TABS 0.4 MG TAB SUBLINGUAL PRN (19:00)
[2022-02-08] MEDS ORDERED: ACETAMINOPHEN TAB 325 MG TAB PO PRN (19:00)
[2022-02-08 21:00] LABS: Glucose,Whole Blood 159 mg/dL (70-110)
[2022-02-09 06:23] LABS: Glucose,Whole Blood 194 mg/dL (70-110)
[2022-02-09] MEDS ORDERED: ASPIRIN 325 MG TAB PO SCH (09:00)
[2022-02-09 09:15] LABS: Chol/HDL Ratio 6.31 Ratio; LDL Cholesterol,Calculated 112.5 mg/dL (0.0-131.0)
[2022-02-09 11:40] LABS: Glucose,Whole Blood 129 mg/dL (70-110)
[2022-02-09] MEDS: metFORMIN 500 MG TAB PO SCH ×2 (12:07→17:19)
[2022-02-09] MEDS ORDERED: PANTOPRAZOLE 40 MG/10 ML VIAL IVP SCH (12:30)
[2022-02-09] MEDS: KETOROLAC 15 MG/ML 1 ML VIAL IVP PRN ×2 (12:37→20:28)
--- NOTE | 2022-02-09 12:39 | P.CRDCN ---
History of Present Illness Consult date: 02/09/22 History of present illness: History of Present Illness: The patient is a 61-year-old male known history of diabetes, hyperlipidemia, chronic tobacco use and a history of prior CABG done in [place] over 6 years ago. He has not been following with a physician until recently. He had an EKG done because of chest discomfort and arm discomfort and subsequently was called to present to the emergency room. He has been having left arm and chest discomfort, not always activity related. He has chronic dyspnea on exertion and is limited in his physical activity. He has peripheral edema and Prior history of nonhealing ulcer. He has occasional palpitation but no significant dizziness or syncope. He has no clear PND or orthopnea. According to him he had myocardial infarction prior to his bypass. He has 3 with bypass, details of that are not available. His troponin were normal and his EKG was of poor baseline with no evidence of acute changes. Patient did certain time was not taking his insulin. Medications: Metformin, insulin and Crestor Review of Systems: Respiratory: He has chronic dyspnea on exertion with history of chronic tobacco use GI: No nausea or vomiting . No history of peptic ulcer disease. No recent GI bleed. : No hematuria or dysuria. Nervous System: No stroke or seizure. Physical Examination: 61-year-old male alert oriented morbidly obese,Blood pressure 145/80, Heart rate 60 Head: Normocephalic. Eyes: Sclerae nonicteric. Neck: Good carotid upstroke, no bruit, no jugular venous distention. Lungs: Decreased breath sounds bilaterally Heart: Regular rate and rhythm, S1-S2, no S3, no rub. Systolic ejection murmur. Abdomen: Soft nontender, positive bowel sounds no organomegaly. Extremities: 2+ edema, intact distal pulses. Labs: Troponin less than 0.0 0.2, cholesterol 181, LDL 112, hemoglobin 17.2, BUN 14, creatinine 0.57. Chest x-ray was questionable increased marking EKG: Sinus mechanism, poor baseline with nonspecific ST-T wave changes Impression: 1. Chest and arm discomfort of unclear etiology in a patient with known history of CAD 2. Chronic dyspnea on exertion with chronic tobacco use, rule out congestive heart failure 3. History of hyperlipidemia 4. Status post CABG 5. History of diabetes 6. Noncompliance Plan: 1. Obtain an echocardiogram with Doppler 2. Start statin 3. Obtain pulmonary consultation 4. Initiate diuretics 5. Follow her renal functions 6. Depending on his progress he may require coronary angiography or myocardial perfusion imaging 7. Try to obtain prior records regarding his bypass 8. Thank you for this consult we will follow with you Past Medical History Past Medical History: COPD, Diabetes Mellitus, Fibromyalgia Additional Past Medical History / Comment(s): Ty II DM, Vertigo when head tilts back, Psoriasis, RAJESH LL edmena History of Any Multi-Drug Resistant Organisms: None Reported Past Surgical History: Appendectomy, Coronary Bypass/CABG, Heart Catheterization Additional Past Surgical History / Comment(s): Back-CA Past Anesthesia/Blood Transfusion Reactions: No Reported Reaction Past Psychological History: No Psychological Hx Reported Additional Psychological History / Comment(s): Pt resides alone. He drives. He has a cane but does not use it. Smoking Status: Current every day smoker Past Alcohol Use History: Rare Additional Past Alcohol Use History / Comment(s): Pt started smoking in 1976 and is a ppd smoker. Past Drug Use History: Marijuana Additional Drug Use History / Comment(s): Pt smokes marijuana for pain control, about 4 joints a day. - Past Family History Father History Unknown: Yes Family Medical History: Diabetes Mellitus Additional Family Medical History / Comment(s): of Colon CA Mother History Unknown: Yes Family Medical History: CVA/TIA Additional Family Medical History / Comment(s): Rheumatic fever-all valves replaced multiple times. from CVA Medications and Allergies Home Medications Medication Instructions Recorded Confirmed Type metFORMIN HCL [Glucophage] 1,000 mg PO BID-W/MEALS #60 tab 07/12/19 02/08/22 Rx Insulin NPH Hum/Reg Insulin Hm 40 unit SQ BID-W/MEALS 01/19/21 02/08/22 History [NovoLIN 70-30 100 UNIT/ML VIAL] Rosuvastatin Calcium 5 mg PO HS 02/08/22 02/08/22 History Allergies Allergy/AdvReac Type Severity Reaction Status Date / Time No Known Allergies Allergy Verified 02/08/22 19:14 Physical Exam Vitals: Vital Signs Temp Pulse Pulse Resp BP BP Pulse Ox 02/09/22 09:37 61 20 02/09/22 08:18 96.8 F L 61 20 138/69 92 L 02/09/22 07:37 95 02/08/22 22:35 97.8 F 64 22 145/84 91 L 02/08/22 21:10 97.9 F 59 L 16 132/78 98 02/08/22 19:24 60 18 144/104 95 02/08/22 18:49 57 L 18 132/87 94 L 02/08/22 17:33 60 18 130/90 93 L 02/08/22 16:45 59 L 18 123/93 95 02/08/22 15:14 97.2 F L 67 18 147/88 92 L Intake and Output 02/08/22 02/09/22 02/09/22 22:59 06:59 14:59 Intake Total 485 Balance 485 Intake: Oral 485 Other: Voiding Method Toilet Toilet Toilet # Voids 2 1 Weight 179.169 kg Results 02/08/22 17:10 02/08/22 17:58 Cardiac Enzymes 02/08/22 02/08/22 02/08/22 Range/Units 17:10 17:58 19:26 AST 27 (17-59) U/L Troponin I <0.012 <0.012 (0.000-0.034) ng/mL 02/08/22 Range/Units 23:42 AST (17-59) U/L Troponin I <0.012 (0.000-0.034) ng/mL Coagulation 02/08/22 Range/Units 17:10 PT 10.3 (9.0-12.0) sec APTT 24.6 (22.0-30.0) sec Lipids 02/08/22 Range/Units 23:42 Triglycerides 199.00 H (0.00-149.00) mg/dL Cholesterol 181.00 (0.00-200.00) mg/dL HDL Cholesterol 28.70 L (40.00-60.00) mg/dL Cholesterol/HDL Ratio 6.31 Ratio CBC 02/08/22 Range/Units 17:10 WBC 6.6 (3.8-10.6) k/uL RBC 5.80 (4.30-5.90) m/uL Hgb 17.2 (13.0-17.5) gm/dL Hct 52.6 (39.0-53.0) % Plt Count 210 (150-450) k/uL Comprehensive Metabolic Panel 02/08/22 Range/Units 17:58 Sodium 138 (137-145) mmol/L Potassium 4.2 (3.5-5.1) mmol/L Chloride 102 (98-107) mmol/L Carbon Dioxide 29 (22-30) mmol/L BUN 14 (9-20) mg/dL Creatinine 0.57 L (0.66-1.25) mg/dL Glucose 110 H (74-99) mg/dL Calcium 8.6 (8.4-10.2) mg/dL AST 27 (17-59) U/L ALT 34 (4-49) U/L Alkaline Phosphatase 78 (38-126) U/L Total Protein 6.6 (6.3-8.2) g/dL Albumin 3.5 (3.5-5.0) g/dL Current Medications Generic Name Dose Route Start Last Admin Trade Name Freq PRN Reason Stop Dose Admin Acetaminophen 650 mg 02/08/22 19:00 Acetaminophen Tab 325 Mg Tab PO Q4HR PRN Pain Aspirin 325 mg 02/09/22 09:00 02/09/22 12:07 Aspirin 325 Mg Tab PO 325 mg DAILY HIEU Administration Ketorolac Tromethamine 15 mg 02/09/22 12:24 Ketorolac 15 Mg/Ml 1 Ml Vial IVP 02/14/22 12:25 Q6HR PRN Pain Metformin HCl 1,000 mg 02/09/22 07:30 02/09/22 12:07 Metformin 500 Mg Tab PO 1,000 mg BID-W/MEALS HIEU Administration Morphine Sulfate 4 mg 02/08/22 19:00 Morphine Sulfate 4 Mg/Ml Syringe IV Q5M PRN Chest Pain Nitroglycerin 0.4 mg 02/08/22 19:00 Nitroglycerin Sl Tabs 0.4 Mg Tab SUBLINGUAL Q5M PRN Chest Pain Pantoprazole Sodium 40 mg 02/09/22 12:30 Pantoprazole 40 Mg/10 Ml Vial IVP DAILY HIEU Intake and Output 02/08/22 02/09/22 02/09/22 22:59 06:59 14:59 Intake Total 485 Balance 485 Intake: Oral 485 Other: Voiding Method Toilet Toilet Toilet # Voids 2 1 Weight 179.169 kg 02/08/22 17:10 02/08/22 17:58
--- NOTE | 2022-02-09 12:51 | P.HPIM ---
History of Present Illness 61-year-old male came in with complaints of chest pressure radiating to the left arm nonexertional. Patient will also comparing of shortness of breath patient is morbidly obese patient had microinfarction the past with CABG in the past. Patient chest pain is not associated diaphoresis not associated with nausea echo was ordered which is pending at this time. Patient smokes a pack per day. He does have neck pain and 17 with the movement of his left shoulder. Patient was having tingling numbness in the left arm. REVIEW OF SYSTEMS: CONSTITUTIONAL: No fever, no malaise, no fatigue. HEENT: No recent visual problems or hearing problems. Denied any sore throat. CARDIOVASCULAR: No orthopnea, PND, no palpitations, no syncope. PULMONARY: No shortness of breath, no cough, no hemoptysis. GASTROINTESTINAL: No diarrhea, no nausea, no vomiting, no abdominal pain. NEUROLOGICAL: No headaches, no weakness, no numbness. HEMATOLOGICAL: Denies any bleeding or petechiae. GENITOURINARY: Denies any burning micturition, frequency, or urgency. MUSCULOSKELETAL/RHEUMATOLOGICAL: Denies any joint pain, swelling, or any muscle pain. ENDOCRINE: Denies any polyuria or polydipsia. The rest of the 14-point review of systems is negative. PHYSICAL EXAMINATION: GENERAL: The patient is alert and oriented x3, not in any acute distress. Obese HEENT: Pupils are round and equally reacting to light. EOMI. No scleral icterus. No conjunctival pallor. Normocephalic, atraumatic. No pharyngeal erythema. No thyromegaly. CARDIOVASCULAR: S1 and S2 present. No murmurs, rubs, or gallops. PULMONARY: Diminished breath sounds bilaterally ABDOMEN: Soft, nontender, nondistended, normoactive bowel sounds. No palpable organomegaly. MUSCULOSKELETAL: No joint swelling or deformity. EXTREMITIES: No cyanosis, clubbing, or pedal edema. NEUROLOGICAL: Gross neurological examination did not reveal any focal deficits. SKIN: No rashes. Assessment and plan -Chest pain rule out acute coronary syndromes echo is being obtained cardiology evaluated the patient patient does have chest discomfort although his pain appears to be mostly musculoskeletal secondary to degenerative neck disease Will opt and neck x-ray was started on anti-inflammatory medications. -Chronic dyspnea may have a competent of COPD with mostly appears to be related to his chronic hypoxemia from sleep apnea and obesity will need sleep testing as an outpatient Coronary artery bypass surgery in the past coronary artery disease, patient has not been taking aspirin or beta neil as outpatient. -Type 2 diabetes mellitus and malignancy of 8.4 patient will be resumed on his home regimen sliding scale insulin as needed -Mild bilateral lower extremity edema secondary to chronic venous insufficiency -Cervical spine degenerative neck disease DVT prophylaxis: Lovenox Past Medical History Past Medical History: COPD, Diabetes Mellitus, Fibromyalgia Additional Past Medical History / Comment(s): Ty II DM, Vertigo when head tilts back, Psoriasis, RAJESH LL edmena History of Any Multi-Drug Resistant Organisms: None Reported Past Surgical History: Appendectomy, Coronary Bypass/CABG, Heart Catheterization Additional Past Surgical History / Comment(s): Back-CA Past Anesthesia/Blood Transfusion Reactions: No Reported Reaction Past Psychological History: No Psychological Hx Reported Additional Psychological History / Comment(s): Pt resides alone. He drives. He has a cane but does not use it. Smoking Status: Current every day smoker Past Alcohol Use History: Rare Additional Past Alcohol Use History / Comment(s): Pt started smoking in 1976 and is a ppd smoker. Past Drug Use History: Marijuana Additional Drug Use History / Comment(s): Pt smokes marijuana for pain control, about 4 joints a day. - Past Family History Father History Unknown: Yes Family Medical History: Diabetes Mellitus Additional Family Medical History / Comment(s): of Colon CA Mother History Unknown: Yes Family Medical History: CVA/TIA Additional Family Medical History / Comment(s): Rheumatic fever-all valves replaced multiple times. from CVA Medications and Allergies Home Medications Medication Instructions Recorded Confirmed Type metFORMIN HCL [Glucophage] 1,000 mg PO BID-W/MEALS #60 tab 07/12/19 02/08/22 Rx Insulin NPH Hum/Reg Insulin Hm 40 unit SQ BID-W/MEALS 01/19/21 02/08/22 History [NovoLIN 70-30 100 UNIT/ML VIAL] Rosuvastatin Calcium 5 mg PO HS 02/08/22 02/08/22 History Allergies Allergy/AdvReac Type Severity Reaction Status Date / Time No Known Allergies Allergy Verified 02/08/22 19:14 Physical Exam Vitals: Vital Signs Temp Pulse Pulse Resp BP BP Pulse Ox 02/09/22 09:37 61 20 02/09/22 08:18 96.8 F L 61 20 138/69 92 L 02/09/22 07:37 95 02/08/22 22:35 97.8 F 64 22 145/84 91 L 02/08/22 21:10 97.9 F 59 L 16 132/78 98 02/08/22 19:24 60 18 144/104 95 02/08/22 18:49 57 L 18 132/87 94 L 02/08/22 17:33 60 18 130/90 93 L 02/08/22 16:45 59 L 18 123/93 95 02/08/22 15:14 97.2 F L 67 18 147/88 92 L Intake and Output 02/08/22 02/09/22 02/09/22 22:59 06:59 14:59 Intake Total 485 Balance 485 Intake: Oral 485 Other: Voiding Method Toilet Toilet Toilet # Voids 2 1 Weight 179.169 kg Results CBC & Chem 7: 02/08/22 17:10 02/08/22 17:58 Labs: Abnormal Lab Results - Last 24 Hours (Table) 02/08/22 02/08/22 02/08/22 Range/Units 17:58 20:48 23:42 Creatinine 0.57 L (0.66-1.25) mg/dL Glucose 110 H (74-99) mg/dL POC Glucose (mg/dL) 159 H (70-110) mg/dL Triglycerides 199.00 H (0.00-149.00) mg/dL HDL Cholesterol 28.70 L (40.00-60.00) mg/dL 02/09/22 02/09/22 Range/Units 06:22 11:39 Creatinine (0.66-1.25) mg/dL Glucose (74-99) mg/dL POC Glucose (mg/dL) 194 H 129 H (70-110) mg/dL Triglycerides (0.00-149.00) mg/dL HDL Cholesterol (40.00-60.00) mg/dL
[2022-02-09] MEDS: ISOSORBIDE MONONITRATE ER 30 MG TAB.ER.24H PO SCH (13:36)
[2022-02-09] MEDS: lisinopriL 5 MG TAB PO SCH ×2 (13:36→20:29)
[2022-02-09] MEDS: ATORVASTATIN 40 MG TAB PO SCH (13:36)
[2022-02-09] MEDS: FUROSEMIDE 10 MG/ML 2 ML VIAL IV SCH ×2 (13:36→20:29)
--- NOTE | 2022-02-09 13:59 | XR ---
EXAMINATION TYPE: XR cervical spine w flex/ext DATE OF EXAM: 02/09/2022 1:04 PM INDICATION: Patient age:Male; 61 years old; Reason for study: Neck Pain; COMPARISON: None TECHNIQUE: The cervical spine was imaged in frontal, lateral, odontoid and bilateral oblique. Additio nal flexion-extension views FINDINGS: The osseous structures show normal alignment without evidence of an acute fracture. Mild osteophyte f ormation of the vertebral bodies. The intervertebral disk spaces are preserved. Pedicles are intact. Soft tissues are within normal limits. The odontoid appears intact. No abnormality on flexion or ex tension identified. Sternotomy wires are present. IMPRESSION: 1. No fracture or dislocation. 2. Moderate degenerative disc disease changes of the cervical spine.
[2022-02-09 16:33] LABS: Glucose,Whole Blood 215 mg/dL (70-110)
--- NOTE | 2022-02-09 17:27 | P.CNPUL ---
History of Present Illness Consult date: 02/09/22 Reason for consult: dyspnea, chest pain History of present illness: Morbidly obese 61-year-old male patient, smokes cigarettes and smokes daily m tavo with known history of COPD and obstructive sleep apnea and he has not been utilizing CPAP therapy. The patient has been utilizing samples of inhalers from his primary care physician's office and he has been given samples of Symbicort in the past. Is also known to have coronary artery disease with previous bypass surgery and chronic lower oximetry edema. He presented to the hospital because of chest discomfort, pain, cough, congestion, wheezing and he was also complaining of pain in his chest and into his left shoulder and arm and for that reason angina with suspected and the patient was accordingly hospitalized. The patient was seen by cardiology. The blood work is essentially was within normal limits. Troponins were negative. ProBNP level was 30. Coagulation profile was normal. Function was normal. White cell count was not elevated. The chest x-ray showed evidence of volume overload with possible early CHF. The patient is currently on Lasix 20 mg IV every 12 hours. the patient is diabetic. The patient has poor blood sugar control and he has also history of hyperlipidemia. Review of Systems Constitutional: Reports daytime sleepiness, Reports fatigue, Reports weakness, Reports weight gain Eyes: denies as per HPI, denies blurred vision, denies bulging eye, denies decreased vision, denies diplopia, denies discharge, denies dry eye, denies irritation, denies itching, denies pain, denies photophobia, denies loss of peripheral vision, denies loss of vision, denies tunnel vision/blind spots Ears: deny: decreased hearing, ear discharge, earache, tinnitus Ears, nose, mouth and throat: Reports as per HPI Breasts: absent: as per HPI, gynecomastia Cardiovascular: Reports decreased exercise tolerance, Reports dyspnea on exertion, Reports shortness of breath Respiratory: Reports congestion, Reports dyspnea, Reports home oxygen, Reports sleep apnea, Reports snoring, Reports wheezing Gastrointestinal: Reports as per HPI Genitourinary: Reports as per HPI Musculoskeletal: Reports as per HPI Musculoskeletal: bilateral: ankle swelling, absent: ankle pain, ankle stiffness Integumentary: Reports as per HPI Neurological: Reports as per HPI Psychiatric: Reports as per HPI Endocrine: Reports as per HPI, Reports fatigue Hematologic/Lymphatic: Reports as per HPI Allergic/Immunologic: Reports as per HPI Past Medical History Past Medical History: Coronary Artery Disease (CAD), COPD, Diabetes Mellitus, Fibromyalgia, Sleep Apnea/CPAP/BIPAP Additional Past Medical History / Comment(s): Ty II DM, Vertigo when head tilts back, Psoriasis, RAJESH LL edema History of Any Multi-Drug Resistant Organisms: None Reported Past Surgical History: Appendectomy, Coronary Bypass/CABG, Heart Catheterization Additional Past Surgical History / Comment(s): Back-CA Past Anesthesia/Blood Transfusion Reactions: No Reported Reaction Past Psychological History: No Psychological Hx Reported Additional Psychological History / Comment(s): Pt resides alone. He drives. He has a cane but does not use it. Smoking Status: Current every day smoker Past Alcohol Use History: Rare Additional Past Alcohol Use History / Comment(s): Pt started smoking in 1976 and is a ppd smoker. Past Drug Use History: Marijuana Additional Drug Use History / Comment(s): Pt smokes marijuana for pain control, about 4 joints a day. - Past Family History Father History Unknown: Yes Family Medical History: Diabetes Mellitus Additional Family Medical History / Comment(s): of Colon CA Mother History Unknown: Yes Family Medical History: CVA/TIA Additional Family Medical History / Comment(s): Rheumatic fever-all valves replaced multiple times. from CVA Medications and Allergies Home Medications Medication Instructions Recorded Confirmed Type metFORMIN HCL [Glucophage] 1,000 mg PO BID-W/MEALS #60 tab 07/12/19 02/08/22 Rx Insulin NPH Hum/Reg Insulin Hm 40 unit SQ BID-W/MEALS 01/19/21 02/08/22 History [NovoLIN 70-30 100 UNIT/ML VIAL] Rosuvastatin Calcium 5 mg PO HS 02/08/22 02/08/22 History Allergies Allergy/AdvReac Type Severity Reaction Status Date / Time No Known Allergies Allergy Verified 02/08/22 19:14 Physical Exam Vitals: Vital Signs Temp Pulse Pulse Resp BP BP Pulse Ox 02/09/22 12:58 64 16 136/69 92 L 02/09/22 09:37 61 20 02/09/22 08:18 96.8 F L 61 20 138/69 92 L 02/09/22 07:37 95 02/08/22 22:35 97.8 F 64 22 145/84 91 L 02/08/22 21:10 97.9 F 59 L 16 132/78 98 02/08/22 19:24 60 18 144/104 95 02/08/22 18:49 57 L 18 132/87 94 L 02/08/22 17:33 60 18 130/90 93 L 02/08/22 16:45 59 L 18 123/93 95 02/08/22 15:14 97.2 F L 67 18 147/88 92 L Intake and Output 02/08/22 02/09/22 02/09/22 22:59 06:59 14:59 Intake Total 485 Balance 485 Intake: Oral 485 Other: Voiding Method Toilet Toilet Toilet # Voids 2 1 Weight 179.169 kg GENERAL: The patient is alert and oriented x3, not in any acute distress. Obese ,room air oxygen Head exam was generally normal. There was no scleral icterus or corneal arcus. Mucous membranes were moist. HEENT: Pupils are round and equally reacting to light. EOMI. No scleral icterus. No conjunctival pallor. Normocephalic, atraumatic. No pharyngeal erythema. No thyromegaly. Mallampati class IV with significant crowding of the posterior pharynx CARDIOVASCULAR: S1 and S2 present. No murmurs, rubs, or gallops. PULMONARY: Diminished breath sounds bilaterally, significant expiratory wheezes throughout the lung base bilaterally ABDOMEN: Soft, nontender, nondistended, normoactive bowel sounds. No palpable organomegaly. MUSCULOSKELETAL: No joint swelling or deformity. EXTREMITIES: No cyanosis, clubbing, there is significant pedal edema +1-2 in the lower oximetry is bilaterally. NEUROLOGICAL: Gross neurological examination did not reveal any focal deficits. SKIN: No rashes. Results - Laboratory Findings CBC and BMP: 02/08/22 17:10 02/08/22 17:58 PT/INR, D-dimer PT 10.3 sec (9.0-12.0) 02/08/22 17:10 INR 1.0 (<1.2) 02/08/22 17:10 Abnormal lab findings: Abnormal Labs 02/08/22 02/08/22 02/08/22 17:58 20:48 23:42 Creatinine 0.57 L Glucose 110 H POC Glucose (mg/dL) 159 H Triglycerides 199.00 H HDL Cholesterol 28.70 L 02/09/22 02/09/22 06:22 11:39 Creatinine Glucose POC Glucose (mg/dL) 194 H 129 H Triglycerides HDL Cholesterol - Diagnostic Findings Chest x-ray: image reviewed Assessment and Plan Plan: acute exacerbation of COPD, along with that there may be possibly a component of CHF Shortness of breath secondary to above Acute on chronic dyspnea secondary to above Chest pain rule out acute coronary syndromes echo is being obtained cardiology evaluated the patient patient does have chest discomfort although his pain appears to be mostly musculoskeletal secondary to degenerative neck disease coronary artery disease and the patient has had a Coronary artery bypass surgery in the past Type 2 diabetes mellitus and malignancy of 8.4 patient will be resumed on his home regimen sliding scale insulin as needed Chronic bilateral lower extremity edema secondary to chronic venous insufficiency Cervical spine degenerative neck disease Obesity ELANA Smoker Plan Start the patient on DuoNeb about treatments [id number] 4 times a day Start the patient on Symbicort 2 puffs twice a day IV Solu-Medrol is to be considered in the next 24 hours if no improvement Continue Lasix 20 mg IV every 12 hours Outpatient sonogram regarding sleep apnea Weight loss Smoking cessation counseling cardiology consultation regarding the chest pain Echocardiogram Tighter control of risk factors including diabetes mellitus We'll follow
[2022-02-09 20:34] LABS: Glucose,Whole Blood 177 mg/dL (70-110)
[2022-02-09] MEDS: SYMBICORT 160-4.5 MCG INHALER INHALATION SCH (21:28)
[2022-02-09] MEDS: IPRATROPIUM-ALBUTEROL 3 ML NEB INHALATION SCH ×2 (21:28→21:37)
[2022-02-10 06:10] LABS: Glucose,Whole Blood 154 mg/dL (70-110)
[2022-02-10] MEDS: metFORMIN 500 MG TAB PO SCH ×2 (06:26→16:58)
[2022-02-10] MEDS: PANTOPRAZOLE 40 MG TABLET PO SCH (06:26)
[2022-02-10] MEDS: SYMBICORT 160-4.5 MCG INHALER INHALATION SCH ×2 (07:31→21:16)
[2022-02-10] MEDS: IPRATROPIUM-ALBUTEROL 3 ML NEB INHALATION SCH ×4 (07:36→21:19)
[2022-02-10] MEDS: FUROSEMIDE 10 MG/ML 2 ML VIAL IV SCH ×2 (09:11→20:55)
[2022-02-10] MEDS: ISOSORBIDE MONONITRATE ER 30 MG TAB.ER.24H PO SCH (09:11)
[2022-02-10] MEDS: ASPIRIN 81 MG PO SCH (09:11)
[2022-02-10] MEDS: lisinopriL 5 MG TAB PO SCH ×2 (09:11→20:55)
[2022-02-10] MEDS: ATORVASTATIN 40 MG TAB PO SCH (09:11)
[2022-02-10] MEDS: ENOXAPARIN 60 MG/0.6 ML SYRINGE SQ SCH (09:11)
[2022-02-10 11:41] LABS: African American GFR (CKD) >90 (>60 ml/min/1.73 sqM); Anion Gap 8 mmol/L; Blood Urea Nitrogen 14 mg/dL (9-20); Calcium 8.6 mg/dL (8.4-10.2); Carbon Dioxide 25 mmol/L (22-30); Chloride 101 mmol/L (98-107); Glucose 219 mg/dL (74-99); Non-African American GFR(CKD) >90 (>60 ml/min/1.73 sqM); Potassium 4.7 mmol/L (3.5-5.1); Sodium 134 mmol/L (137-145)
[2022-02-10 11:56] LABS: Glucose,Whole Blood 176 mg/dL (70-110)
--- NOTE | 2022-02-10 13:46 | P.PN ---
Subjective Progress Note Date: 02/10/22 The patient is a 61-year-old male known history of diabetes, hyperlipidemia, chronic tobacco use and a history of prior CABG done in [place] over 6 years ago. He has not been following with a physician until recently. He had an EKG done because of chest discomfort and arm discomfort and subsequently was called to present to the emergency room. He has been having left arm and chest discomfort, not always activity related. He has chronic dyspnea on exertion and is limited in his physical activity. He has peripheral edema and Prior history of nonhealing ulcer. He has occasional palpitation but no significant dizziness or syncope. He has no clear PND or orthopnea. According to him he had myocar dial infarction prior to his bypass. He has 3 with bypass, details of that are not available. His troponin were normal and his EKG was of poor baseline with no evidence of acute changes. Patient at certain time was not taking his insulin. 02/10/2022 On examination the patient is sitting on side of the bed. He is overall feeling better today. Denies any complaints of chest discomfort. He feels as if better. Edema is improving. Currently on Lasix 20 mg IV push every 12 hours. Objective - Vital Signs Vital signs: Vital Signs Temp 99.5 F 02/10/22 08:00 Pulse 49 L 02/10/22 12:00 Resp 16 02/10/22 12:00 BP 122/70 02/10/22 12:00 Pulse Ox 91 L 02/10/22 12:00 FiO2 Intake & Output 02/09/22 02/10/22 02/10/22 18:59 06:59 18:59 Intake Total 485 Output Total 200 1600 1000 Balance -200 -1115 -1000 Weight 178.4 kg Intake: Oral 485 Output: Urine 200 1600 1000 Other: Voiding Method Toilet Toilet Toilet # Voids 1 - Exam Head: Normocephalic. Eyes: Sclerae nonicteric. Neck: Good carotid upstroke, no bruit, no jugular venous distention. Lungs: Decreased breath sounds bilaterally Heart: Regular rate and rhythm, S1-S2, no S3, no rub. Systolic ejection murmur. Abdomen: Soft nontender, positive bowel sounds no organomegaly. Extremities: 2+ edema, intact distal pulses. - Labs CBC & Chem 7: 02/08/22 17:10 02/10/22 10:34 Labs: Abnormal Lab Results - Last 24 Hours (Table) 02/09/22 02/09/22 02/10/22 Range/Units 16:29 20:32 06:09 Sodium (137-145) mmol/L Glucose (74-99) mg/dL POC Glucose (mg/dL) 215 H 177 H 154 H (70-110) mg/dL 02/10/22 02/10/22 Range/Units 10:34 11:55 Sodium 134 L (137-145) mmol/L Glucose 219 H (74-99) mg/dL POC Glucose (mg/dL) 176 H (70-110) mg/dL Assessment and Plan Assessment: 1. Chest and arm discomfort of unclear etiology in a patient with known history of CAD 2. Chronic dyspnea on exertion with chronic tobacco use, rule out congestive heart failure 3. History of hyperlipidemia 4. Status post CABG 5. History of diabetes 6. Noncompliance Plan: From Cardiology's perspective obtain a 2-D echo with Doppler study to assess cardiac structure and function. Continue IV diuresis. Continue to follow renal function and electrolytes. We will continue to follow the patient and provide further recommendations accordingly. INSPECTOR GENERAL note has been reviewed, I agree with a documented findings and plan of care. Patient was seen and examined.
--- NOTE | 2022-02-10 13:52 | P.PN ---
Subjective Progress Note Date: 02/10/22 Morbidly obese 61-year-old male patient, smokes cigarettes and smokes daily paul moran with known history of COPD and obstructive sleep apnea and he has not been utilizing CPAP therapy. The patient has been utilizing samples of inhalers from his primary care physician's office and he has been given samples of Symbicort in the past. Is also known to have coronary artery disease with previous bypass surgery and chronic lower oximetry edema. He presented to the hospital because of chest discomfort, pain, cough, congestion, wheezing and he was also complaining of pain in his chest and into his left shoulder and arm and for that reason angina with suspected and the patient was accordingly hospitalized. The patient was seen by cardiology. The blood work is essentially was within normal limits. Troponins were negative. ProBNP level was 30. Coagulation profile was normal. Function was normal. White cell count was not elevated. The chest x-ray showed evidence of volume overload with possible early CHF. The patient is currently on Lasix 20 mg IV every 12 hours. the patient is diabetic. The patient has poor blood sugar control and he has also history of hyperlipidemia. On 02/10/2022, the patient is doing well on room air oxygen. He is currently on Symbicort. Is also on DuoNeb about 2 months on the clock. Is on IV Lasix. He is producing adequate amount of urine output and overall fluid balance has been -1.3 L over the past 24 hours. Electrolytes are within normal limits with a normal BUN and creatinine. Currently on Lasix 20 mg IV every 12 hours. Awaiting the echo of the heart. Objective - Vital Signs Vital signs: Vital Signs Temp 99.5 F 02/10/22 08:00 Pulse 49 L 02/10/22 12:00 Resp 16 02/10/22 12:00 BP 122/70 02/10/22 12:00 Pulse Ox 91 L 02/10/22 12:00 FiO2 Intake & Output 02/09/22 02/10/22 02/10/22 18:59 06:59 18:59 Intake Total 485 Output Total 200 1600 1000 Balance -200 -1115 -1000 Weight 178.4 kg Intake: Oral 485 Output: Urine 200 1600 1000 Other: Voiding Method Toilet Toilet Toilet # Voids 1 - Exam GENERAL: The patient is alert and oriented x3, not in any acute distress. Obese ,room air oxygen Head exam was generally normal. There was no scleral icterus or corneal arcus. Mucous membranes were moist. HEENT: Pupils are round and equally reacting to light. EOMI. No scleral icterus. No conjunctival pallor. Normocephalic, atraumatic. No pharyngeal erythema. No thyromegaly. Mallampati class IV with significant crowding of the posterior ph arynx CARDIOVASCULAR: S1 and S2 present. No murmurs, rubs, or gallops. PULMONARY: Diminished breath sounds bilaterally, significant expiratory wheezes throughout the lung base bilaterally ABDOMEN: Soft, nontender, nondistended, normoactive bowel sounds. No palpable organomegaly. MUSCULOSKELETAL: No joint swelling or deformity. EXTREMITIES: No cyanosis, clubbing, there is significant pedal edema +1-2 in the lower oximetry is bilaterally. NEUROLOGICAL: Gross neurological examination did not reveal any focal deficits. SKIN: No rashes. - Labs CBC & Chem 7: 02/08/22 17:10 02/10/22 10:34 Labs: Abnormal Lab Results - Last 24 Hours (Table) 02/09/22 02/09/22 02/10/22 Range/Units 16:29 20:32 06:09 Sodium (137-145) mmol/L Glucose (74-99) mg/dL POC Glucose (mg/dL) 215 H 177 H 154 H (70-110) mg/dL 02/10/22 02/10/22 Range/Units 10:34 11:55 Sodium 134 L (137-145) mmol/L Glucose 219 H (74-99) mg/dL POC Glucose (mg/dL) 176 H (70-110) mg/dL Assessment and Plan Plan: acute exacerbation of COPD, along with that there may be possibly a component of CHF, improving Shortness of breath secondary to above, improving Acute on chronic dyspnea secondary to above, improving currently on room air oxygen Chest pain rule out acute coronary syndromes echo is being obtained cardiology evaluated the patient patient does have chest discomfort although his pain appears to be mostly musculoskeletal secondary to degenerative neck disease coronary artery disease and the patient has had a Coronary artery bypass surgery in the past Type 2 diabetes mellitus and malignancy of 8.4 patient will be resumed on his home regimen sliding scale insulin as needed Chronic bilateral lower extremity edema secondary to chronic venous insu fficiency Cervical spine degenerative neck disease Obesity ELANA Smoker Plan continue DuoNeb about treatments [id number] 4 times a day Continue Symbicort 2 puffs twice a day Continue Lasix 20 mg IV every 12 hours Outpatient polysomnogram regarding sleep apnea Weight loss Smoking cessation counseling cardiology consultation regarding the chest pain Echocardiogram is still pending Tighter control of risk factors including diabetes mellitus We'll follow
--- NOTE | 2022-02-10 14:03 | P.PN ---
Subjective 61-year-old male came in with complaints of chest pressure radiating to the left arm nonexertional. Patient will also comparing of shortness of breath patient is morbidly obese patient had microinfarction the past with CABG in the past. Patient chest pain is not associated diaphoresis not associated with nausea echo was ordered which is pending at this time. Patient smokes a pack per day. He does have neck pain and 17 with the movement of his left shoulder. Patient was having tingling numbness in the left arm. 02/10/2022 Patient is clinically doing well. Patient had good urine output although his serum sodium and a little bit since he is only on very low-dose of Lasix this will be continued will monitor the electrolytes and kidney function tomorrow awaiting echocardiogram. Patient still has a given peripheral edema. Patient's neck pain improved with the tramadol. Still has some tingling numbness in the left patient will benefit from outpatient physical therapy area patient has significant degenerative neck disease on the cervical spine x-ray. Constitutional: Denied any fatigue denied any fever. Cardio vascular: denied any chest pain, palpitations Gastrointestinal denied any nausea vomiting Pulmonary: Denied any shortness of breath cough Neurologic denied any new focal deficits All inpatient medications were reviewed and appropriate changes in these medications as dictated in the interval history and assessment and plan. PHYSICAL EXAMINATION: GENERAL: The patient is alert and oriented x3, not in any acute distress. Obese HEENT: Pupils are round and equally reacting to light. EOMI. No scleral icterus. No conjunctival pallor. Normocephalic, atraumatic. No pharyngeal erythema. No thyromegaly. CARDIOVASCULAR: S1 and S2 present. No murmurs, rubs, or gallops. PULMONARY: Diminished breath sounds bilaterally ABDOMEN: Soft, nontender, nondistended, normoactive bowel sounds. No palpable organomegaly. MUSCULOSKELETAL: No joint swelling or deformity. EXTREMITIES: No cyanosis, clubbing, or pedal edema. NEUROLOGICAL: Gross neurological examination did not reveal any focal deficits. SKIN: No rashes. Assessment and plan -Chest pain rule out acute coronary syndromes echo is being obtained cardiology evaluated the patient patient does have chest discomfort although his pain appears to be mostly musculoskeletal secondary to degenerative neck disease cervical spine x-rays mentionable continue with anti-inflammatory medications -Chronic dyspnea may have a competent of COPD with mostly appears to be related to his chronic hypoxemia from sleep apnea and obesity will need sleep testing as an outpatient Coronary artery bypass surgery in the past coronary artery disease, patient has not been taking aspirin or beta neil as outpatient. -Type 2 diabetes mellitus and malignancy of 8.4 patient will be resumed on his home regimen sliding scale insulin as needed -Mild bilateral lower extremity edema secondary to chronic venous insufficiency -Cervical spine degenerative neck disease DVT prophylaxis: Lovenox Objective - Vital Signs Vital signs: Vital Signs Temp 99.5 F 02/10/22 08:00 Pulse 49 L 02/10/22 12:00 Resp 16 02/10/22 12:00 BP 122/70 02/10/22 12:00 Pulse Ox 91 L 02/10/22 12:00 FiO2 Intake & Output 02/09/22 02/10/22 02/10/22 18:59 06:59 18:59 Intake Total 485 Output Total 200 1600 1000 Balance -200 -1115 -1000 Weight 178.4 kg Intake: Oral 485 Output: Urine 200 1600 1000 Other: Voiding Method Toilet Toilet Toilet # Voids 1 - Labs CBC & Chem 7: 02/08/22 17:10 02/10/22 10:34 Labs: Abnormal Lab Results - Last 24 Hours (Table) 02/09/22 02/09/22 02/10/22 Range/Units 16:29 20:32 06:09 Sodium (137-145) mmol/L Glucose (74-99) mg/dL POC Glucose (mg/dL) 215 H 177 H 154 H (70-110) mg/dL 02/10/22 02/10/22 Range/Units 10:34 11:55 Sodium 134 L (137-145) mmol/L Glucose 219 H (74-99) mg/dL POC Glucose (mg/dL) 176 H (70-110) mg/dL
[2022-02-10 16:34] LABS: Glucose,Whole Blood 168 mg/dL (70-110)
[2022-02-10 20:24] LABS: Glucose,Whole Blood 181 mg/dL (70-110)
[2022-02-10] MEDS: KETOROLAC 15 MG/ML 1 ML VIAL IVP PRN (20:54)
[2022-02-10 23:44] VITALS: RESP 18
[2022-02-11 06:03] LABS: Glucose,Whole Blood 209 mg/dL (70-110)
[2022-02-11] MEDS: metFORMIN 500 MG TAB PO SCH (06:10)
[2022-02-11] MEDS: PANTOPRAZOLE 40 MG TABLET PO SCH (06:11)
[2022-02-11 07:21] LABS: African American GFR (CKD) >90 (>60 ml/min/1.73 sqM); Anion Gap 7 mmol/L; Blood Urea Nitrogen 15 mg/dL (9-20); Calcium 8.4 mg/dL (8.4-10.2); Carbon Dioxide 25 mmol/L (22-30); Chloride 102 mmol/L (98-107); Glucose 204 mg/dL (74-99); Non-African American GFR(CKD) >90 (>60 ml/min/1.73 sqM); Potassium 4.4 mmol/L (3.5-5.1); Sodium 134 mmol/L (137-145)
[2022-02-11] MEDS: IPRATROPIUM-ALBUTEROL 3 ML NEB INHALATION SCH ×3 (07:42→15:48)
[2022-02-11] MEDS: SYMBICORT 160-4.5 MCG INHALER INHALATION SCH (07:43)
[2022-02-11] MEDS: ASPIRIN 81 MG PO SCH (08:17)
[2022-02-11] MEDS: ATORVASTATIN 40 MG TAB PO SCH (08:17)
[2022-02-11] MEDS: ENOXAPARIN 60 MG/0.6 ML SYRINGE SQ SCH (08:17)
[2022-02-11] MEDS: lisinopriL 5 MG TAB PO SCH (08:17)
[2022-02-11] MEDS: ISOSORBIDE MONONITRATE ER 30 MG TAB.ER.24H PO SCH (08:17)
[2022-02-11] MEDS: FUROSEMIDE 10 MG/ML 2 ML VIAL IV SCH (08:17)
[2022-02-11 08:22] VITALS: TEMP 97.6
--- NOTE | 2022-02-11 10:57 | P.PN ---
Subjective HISTORY OF PRESENTING ILLNESS The patient is a 61-year-old male known history of diabetes, hyperlipidemia, chronic tobacco use and a history of prior CABG done in [place] over 6 years ago. He has not been following with a physician until recently. He had an EKG done because of chest discomfort and arm discomfort and subsequently was called to present to the emergency room. He has been having left arm and chest discomfort, not always activity related. He has chronic dyspnea on exertion and is limited in his physical activity. He has peripheral edema and Prior history of nonhealing ulcer. He has occasional palpitation but no significant dizziness or syncope. He has no clear PND or orthopnea. According to him he had myocardial infarction prior to his bypass. He has 3 with bypass, details of that are not available. His troponin were normal and his EKG was of poor baseline with no evidence of acute changes. Patient at certain time was not taking his insulin. 02/10/2022 On examination the patient is sitting on side of the bed. He is overall feeling better today. Denies any complaints of chest discomfort. He feels as if be tter. Edema is improving. Currently on Lasix 20 mg IV push every 12 hours. 02/11 Patient seen and examined. Patient denies any chest pain or pressure. Denies any further arm tingling sensation. Has been walking without any difficulty. Echocardiogram performed this morning and final result is not available however preliminary review shows preserved EF 55-60%. PHYSICAL EXAMINATION Vital signs reviewed. CONSTITUTIONAL: No apparent distress. HEENT: Head is normocephalic. Pupils are equal, round. Sclerae anicteric. Mucous membranes of the mouth are moist. No JVD. No carotid bruit. CHEST EXAMINATION: Lungs are clear to auscultation. No chest wall tenderness is noted on palpation or with deep breathing. HEART EXAMINATION: Regular rate and rhythm. S1, S2 heard. No murmurs, gallops or rub. ABDOMEN: Soft, nontender. Positive bowel sounds. EXTREMITIES: 2+ peripheral pulses, no lower extremity edema and no calf tenderness. NEUROLOGIC EXAMINATION: Patient is awake, alert and oriented x3. Assessment: 1. Atypical chest and arm pain not clearly similar to his prior angina. May be radiculopathy. Acute coronary syndrome ruled out 2. Chronic dyspnea on exertion with chronic tobacco use, less likely congestive heart failure with normal BNP 3. History of hyperlipidemia 4. Status post CABG 5. History of diabetes 6. Noncompliance Plan: Patient appears back to his normal baseline in terms of his dyspnea and not having any further significant chest pain or arm pain. Symptoms are atypical and not similar to his prior angina. Troponins normal and echo reviewed with preserved EF and without significant valvular disease. Patient may be discharged home from a cardiology standpoint with outpatient follow-up. Objective - Vital Signs Vital signs: Vital Signs Temp 97.6 F 02/11/22 08:21 Pulse 60 02/11/22 08:21 Resp 18 02/11/22 08:21 BP 153/83 02/11/22 08:21 Pulse Ox 94 L 02/11/22 08:21 FiO2 Intake & Output 02/10/22 02/11/22 02/11/22 18:59 06:59 18:59 Intake Total 1020 100 Output Total 2400 1600 1250 Balance -2400 -580 -1150 Weight 176.9 kg Intake: Oral 1020 100 Output: Urine 2400 1600 1250 Other: Voiding Method Toilet Toilet Toilet - Labs CBC & Chem 7: 02/08/22 17:10 02/11/22 05:50 Labs: Abnormal Lab Results - Last 24 Hours (Table) 02/10/22 02/10/22 02/10/22 Range/Units 10:34 11:55 16:32 Sodium 134 L (137-145) mmol/L Creatinine (0.66-1.25) mg/dL Glucose 219 H (74-99) mg/dL POC Glucose (mg/dL) 176 H 168 H (70-110) mg/dL 02/10/22 02/11/22 02/11/22 Range/Units 20:23 05:50 06:02 Sodium 134 L (137-145) mmol/L Creatinine 0.65 L (0.66-1.25) mg/dL Glucose 204 H (74-99) mg/dL POC Glucose (mg/dL) 181 H 209 H (70-110) mg/dL
[2022-02-11 11:04] LABS: Glucose,Whole Blood 152 mg/dL (70-110)
[2022-02-11 12:23] VITALS: BP 105/67
--- NOTE | 2022-02-11 13:16 | CA ---
Transthoracic Echo Report Name: Sharad Oconnor Age: 61 Gender: M : 1960 Exam Date: 02/11/2022 09:12 Exam Location: [place] [facility] Ht (in): 62 Wt (lb): 389 Ordering Physician: Jhonny Pendleton MD ([id number]) Attending/Referring Phys: Haul Cane Brakeman Oralia Schmitz, RADU Procedure CPT: Indications: CAD Cardiac Hx: Morbid Obesity Technical Quality: Very technically difficult study Contrast 1: Lumason Total Dose (mL): 4 Contrast 2: Total Dose (mL): MEASUREMENTS (Male / Female) Normal Values 2D ECHO LV Diastolic Diameter PLAX 5.8 cm 4.2 - 5.9 / 3.9 - 5.3 cm LV Systolic Diameter PLAX 3.5 cm IVS Diastolic Thickness 1.5 cm 0.6 - 1.0 / 0.6 - 0.9 cm LVPW Diastolic Thickness 1.5 cm 0.6 - 1.0 / 0.6 - 0.9 cm LV Relative Wall Thickness 0.5 RV Internal Dim ED PLAX 3.2 cm M-MODE Aortic Root Diameter MM 3.1 cm LA Systolic Diameter MM 5.2 cm LA Ao Ratio MM 1.7 MV E Point Septal Separation 0.5 cm FINDINGS Left Ventricle Moderately increased septal wall thickness. Left ventricular ejection fraction is estimated at 55%. Right Ventricle Right ventricle not well visualized. Right Atrium Right atrium not well visualized. Left Atrium Left atrium not well visualized. Mitral Valve Mitral valve not well visualized. Aortic Valve Aortic valve not well visualized. Tricuspid Valve Tricuspid valve not well visualized. Pulmonic Valve Pulmonic valve not well visualized. Pericardium Not visualized. Aorta Aortic root and proximal ascending aorta not well visualized. CONCLUSIONS Technically very difficult study for interpretation Normal left ventricular dimension and systolic function Poorly visualized intracardiac valves Previewed by: Dr. Ghanshyam Cruz MD (Electronically Signed) Final Date: 11 February 2022 13:15
--- NOTE | 2022-02-11 14:40 | P.PN ---
Subjective Progress Note Date: 02/11/22 Principal diagnosis: Acute exacerbation of COPD Morbidly obese 61-year-old male patient, smokes cigarettes and smokes daily marijuana with known history of COPD and obstructive sleep apnea and he has not been utilizing CPAP therapy. The patient has been utilizing samples of inhalers from his primary care physician's office and he has been given samples of Symbicort in the past. Is also known to have coronary artery disease with previous bypass surgery and chronic lower oximetry edema. He presented to the hospital because of chest discomfort, pain, cough, congestion, wheezing and he was also complaining of pain in his chest and into his left shoulder and arm and for that reason angina with suspected and the patient was accordingly hospitalized. The patient was seen by cardiology. The blood work is essentially was within normal limits. Troponins were negative. ProBNP level was 30. Coagulation profile was normal. Function was normal. White cell count was not elevated. The chest x-ray showed evidence of volume overload with possible early CHF. The patient is currently on Lasix 20 mg IV every 12 hours. the patient is diabetic. The patient has poor blood sugar control and he has also history of hyperlipidemia. On 02/10/2022, the patient is doing well on room air oxygen. He is currently on Symbicort. Is also on DuoNeb about 2 months on the clock. Is on IV Lasix. He is producing adequate amount of urine output and overall fluid balance has been -1.3 L over the past 24 hours. Electrolytes are within normal limits with a normal BUN and creatinine. Currently on Lasix 20 mg IV every 12 hours. Awaiting the echo of the heart. Reevaluated today on 02/11/2022, patient feeling better today, less cough and less wheezing less shortness of breath, remains on bronchodilators, remains on DuoNeb and Symbicort, patient is also on Lasix. Labs today are unremarkable. Has a relatively normal electrolytes are normal renal profile. Patient was seen by cardiology, and his echocardiogram was reviewed. Objective - Vital Signs Vital signs: Vital Signs Temp 97.6 F 02/11/22 08:21 Pulse 60 02/11/22 12:00 Resp 18 02/11/22 12:00 BP 105/67 02/11/22 12:00 Pulse Ox 93 L 02/11/22 12:00 FiO2 Intake & Output 02/10/22 02/11/22 02/11/22 18:59 06:59 18:59 Intake Total 1020 300 Output Total 2400 1600 1250 Balance -2400 -580 -950 Weight 176.9 kg Intake: Oral 1020 300 Output: Urine 2400 1600 1250 Other: Voiding Method Toilet Toilet Toilet - Exam Physical Exam: Revealed a 61-year-old white male obese in no distress room air. Head: Atraumatic, normocephalic. HEENT:[Neck is supple.] [No neck masses.] [No thyromegaly.] [No JVD.] Chest: [Diminished breath sounds at the bases some wheezing on forced expiratory maneuver. Cardiac Exam: [Normal S1 and S2, no S3 gallop, no murmur.] Abdomen: [Soft, nontender, no megaly, no rebound, no guarding, normal bowel sounds.] Extremities: [No clubbing, no edema, no cyanosis.] Neurological Exam: [No focal neurologic deficit. Psychiatric: Normal mood affect and normal mental status examination. Skin: No rashes] - Labs CBC & Chem 7: 02/08/22 17:10 02/11/22 05:50 Labs: Abnormal Lab Results - Last 24 Hours (Table) 02/10/22 02/10/22 02/11/22 Range/Units 16:32 20:23 05:50 Sodium 134 L (137-145) mmol/L Creatinine 0.65 L (0.66-1.25) mg/dL Glucose 204 H (74-99) mg/dL POC Glucose (mg/dL) 168 H 181 H (70-110) mg/dL 02/11/22 02/11/22 Range/Units 06:02 11:03 Sodium (137-145) mmol/L Creatinine (0.66-1.25) mg/dL Glucose (74-99) mg/dL POC Glucose (mg/dL) 209 H 152 H (70-110) mg/dL Assessment and Plan Assessment: acute exacerbation of COPD, along with that there may be possibly a component of CHF, improving Shortness of breath secondary to above, improving Acute on chronic dyspnea secondary to above, improving currently on room air oxygen Chest pain rule out acute coronary syndromes echo is being obtained cardiology evaluated the patient patient does have chest discomfort although his pain appears to be mostly musculoskeletal secondary to degenerative neck disease coronary artery disease and the patient has had a Coronary artery bypass surgery in the past Type 2 diabetes mellitus , poorly controlled, elevated hemoglobin A1c Chronic bilateral lower extremity edema secondary to chronic venous insufficiency Cervical spine degenerative neck disease Obesity ELANA Smoker Recommendation: Continue present supportive care measures I will clear the patient to be discharged home with cleared by other consultants/cardiology on the case. Patient should be seen on outpatient basis in our office for his underlying COPD. No need for systemic steroids, Would treat patient on outpatient basis with DuoNeb, and Symbicort only. Time with Patient: Less than 30
[2022-02-11 16:00] VITALS: PULSE 52
--- NOTE | 2022-02-13 04:24 | P.DS ---
Providers Date of admission: 02/08/22 19:00 Expected date of discharge: 02/11/22 Attending physician: Caro Solitario Consults: 02/08/22 19:00 Consult Physician Routine Consulting Provider: Ghanshyam Cruz Consult Reason/Comments: chest pain Do you want consulting provider notified?: Yes 02/09/22 12:41 Consult Physician Routine Consulting Provider: Nancy Page Consult Reason/Comments: copd Do you want consulting provider notified?: Yes Primary care physician: Niyah Wong Hospital Course: Final diagnosis -Chest pain ruled out acute coronary syndromes, mostly musculoskeletal secondary to degenerative neck disease -Chronic dyspnea may have a component of COPD which mostly appears to be related to his chronic hypoxemia from sleep apnea and obesity -Coronary artery bypass surgery in the past coronary artery disease, patient has not been taking aspirin or beta neil as outpatient. -Type 2 diabetes mellitus, uncontrolled with hyperglycemia, recent hemoglobin A1 c is 8.4 -Mild bilateral lower extremity edema secondary to chronic venous insufficiency -Cervical spine degenerative neck disease -DVT prophylaxis Discharge disposition Patient is being discharged in a stable condition with guarded prognosis to home. Patient will follow-up with Dr. Linder in the outpatient setting upon discharge. Patient is to also follow-up with cardiology and pulmonary as s cheduled. Total time taken is greater than 35 minutes. Hospital course This is a 61-year-old male who was recently admitted with chest pain and shortness of breath and being monitored by cardiology and pulmonary. Patient has been noncompliant with medications also with a significant history of diabetes and current hemoglobin A1c was 8.4. Patient will need extensive outpatient follow-up with pulmonary for further testing and sleep apnea testing as well. Discussed with the patient about diet and risk factor modifications and compliance with medications. Patient has been cleared by consultations recommending close outpatient follow-up and this was discussed with the patient. Please refer to consultation notes for further HPI. Patient reports he would like to go home today. Currently no reports of chest pain, shortness of breath, or palpitations. Patient is afebrile. No reports of nausea or vomiting and patient is tolerating diet. Patient will be discharged home today. Guarded prognosis. Physical exam: Gen: This is a 61-year-old male who is awake, alert and oriented 3, well- developed, well-nourished, morbidly obese HEENT: Head is atraumatic, normocephalic. Pupils equal, round. Sclerae is anicteric. NECK: Supple. No JVD. No lymphadenopathy. No thyromegaly. LUNGS: Diminished breath sounds bilaterally with some scattered rhonchi noted. No intercostal retractions. HEART: S1, S2 are muffled ABDOMEN: Soft. Obese. Bowel sounds are present. No masses. No tenderness. EXTREMITIES: Bilateral lower extremity edema appears chronic noted. No calf tenderness. NEUROLOGICAL: Patient is awake, alert and oriented x3. Cranial nerves 2 through 12 are grossly intact. Please refer to medication reconciliation sheet for a list of medications. The impression and plan of care has been dictated by Marion Varghese, Nurse Practitioner as directed. Dr. Angelika MD I have performed a history and examination and MDM of this patient, discussed the same with the dictator, and agree with the dictator's assessment and plan as written ,documented as a scribe. Based on total visit time, I have performed more than 50% of the visit. Patient Condition at Discharge: Good Plan - Discharge Summary New Discharge Prescriptions: New Aspirin 81 mg PO DAILY #30 tab Atorvastatin [Lipitor] 40 mg PO DAILY #30 tab Furosemide [Lasix] 20 mg PO DAILY #30 tab Isosorbide Mononitrate ER [Imdur] 30 mg PO DAILY #30 tab Ibuprofen [Motrin] 600 mg PO Q6HR PRN #30 tab PRN Reason: Pain Budesonide-Formot 160-4.5 Mcg [Symbicort 160-4.5 Mcg Inhaler] 2 puff INHALATION RT-BID 30 Days #1 each Acetaminophen Tab [Tylenol] 650 mg PO Q4HR PRN tab PRN Reason: Pain lisinopriL [Zestril] 5 mg PO BID #60 tab Continue metFORMIN HCL [Glucophage] 1,000 mg PO BID-W/MEALS #60 tab Insulin NPH Hum/Reg Insulin Hm [NovoLIN 70-30 100 UNIT/ML VIAL] 40 unit SQ BID-W/MEALS Discontinued Rosuvastatin Calcium 5 mg PO HS Discharge Medication List metFORMIN HCL [Glucophage] 1,000 mg PO BID-W/MEALS #60 tab 07/12/19 [Rx] Insulin NPH Hum/Reg Insulin Hm [NovoLIN 70-30 100 UNIT/ML VIAL] 40 unit SQ BID- W/MEALS 11/26/21 [History] Acetaminophen Tab [Tylenol] 650 mg PO Q4HR PRN tab 02/11/22 [Rx] Aspirin 81 mg PO DAILY #30 tab 02/11/22 [Rx] Atorvastatin [Lipitor] 40 mg PO DAILY #30 tab 02/11/22 [Rx] Budesonide-Formot 160-4.5 Mcg [Symbicort 160-4.5 Mcg Inhaler] 2 puff INHALATION RT-BID 30 Days #1 each 02/11/22 [Rx] Furosemide [Lasix] 20 mg PO DAILY #30 tab 02/11/22 [Rx] Ibuprofen [Motrin] 600 mg PO Q6HR PRN #30 tab 02/11/22 [Rx] Isosorbide Mononitrate ER [Imdur] 30 mg PO DAILY #30 tab 02/11/22 [Rx] lisinopriL [Zestril] 5 mg PO BID #60 tab 02/11/22 [Rx] Follow up Appointment(s)/Referral(s): Marvin Linder MD [Primary Care Provider] - 02/14/22 1:30 pm (Must make payment on account prior to appointment) Rell Freeman DO [STAFF PHYSICIAN] - 1 Week (Office will call pt with appointment once they received hospital records) Nancy Page MD [STAFF PHYSICIAN] - 04/04/22 2:15 pm (pt is placed on cancellation list for a sooner appointment) Patient Instructions/Handouts: Chest Pain (ED) Activity/Diet/Wound Care/Special Instructions: activity limited until follow up follow up with cardiology and pulmonary take medications as prescribed Discharge Disposition: HOME SELF-CARE
== END 2022-02-11 16:55 | disposition home or self-care (01) | DRG 191 ==
LOC: EC 15:02 → INTOOBSV 19:00 → 3SCARD 19:00 → OBSVTOIN 19:00 → 3SCARD 21:02
PROVIDERS: ADMIT Hospitalist; ATTEND Hospitalist
DX: J44.1 Chronic obstructive pulmonary disease with (acute) exacerbation (principal); Z68.43 Body mass index [BMI] 50.0-59.9, adult; I25.119 Atherosclerotic heart disease of native coronary artery with unspecified angina pectoris; R09.02 Hypoxemia; E11.9 Type 2 diabetes mellitus without complications; E66.01 Morbid (severe) obesity due to excess calories; Z79.4 Long term (current) use of insulin; Z79.899 Other long term (current) drug therapy; I87.2 Venous insufficiency (chronic) (peripheral); R60.0 Localized edema; R07.89 Other chest pain; G47.33 Obstructive sleep apnea (adult) (pediatric); E11.65 Type 2 diabetes mellitus with hyperglycemia; Z71.6 Tobacco abuse counseling; F12.90 Cannabis use, unspecified, uncomplicated; M47.892 Other spondylosis, cervical region; E87.70 Fluid overload, unspecified; E78.5 Hyperlipidemia, unspecified; M79.7 Fibromyalgia; R42 Dizziness and giddiness; L40.9 Psoriasis, unspecified; F17.210 Nicotine dependence, cigarettes, uncomplicated; Z91.199 Patient's noncompliance with other medical treatment and regimen due to unspecified reason; I25.2 Old myocardial infarction; Z95.1 Presence of aortocoronary bypass graft; Z79.84 Long term (current) use of oral hypoglycemic drugs; Z91.14 Patient's other noncompliance with medication regimen
CPT/HCPCS: 36415; 71046; 72052; 80048; 80053; 80061; 83036; 83735; 83880; 84439; 84443; 84484; 85025; 85610; 85730; 93005; 93306; 94640; 94760; 96374; 99285

== ENCOUNTER → 2023-02-28 | Outpatient (CLI) | payer MEDICARE ==
[2023-02-28 16:18] LABS: Basophils # (A) 0.06 X 10*3/uL (0.00-0.10); Basophils % (A) 0.8 %; Eosinophils # (A) 0.11 X 10*3/uL (0.04-0.35); Eosinophils % (A) 1.4 %; HCT 51.3 % (39.6-50.0); HGB 16.4 g/dL (13.0-17.0); Lymphocytes # (A) 2.46 X 10*3/uL (0.90-5.00); Lymphocytes % (A) 31.4 %; MCH 29.3 pg (27.0-32.0); MCV 91.6 FL (80.0-97.0); Mean Platelet Volume 10.4 FL (9.5-12.2); Monocytes # (A) 0.89 X 10*3/uL (0.20-1.00); Monocytes % (A) 11.4 %; NRBC Per 100 WBC 0 X 10*3/uL (0.00-0.01); Neutrophils # (A) 4.29 X 10*3/uL (1.80-7.70); Neutrophils % (A) 54.6 %; Platelet Count 234 X 10*3/uL (140-440); WBC 7.84 X 10*3/uL (4.50-10.00)
[2023-02-28 16:44] LABS: ALT 22 U/L (10-49); AST 15 U/L (14-35); Albumin 4.2 g/dL (3.8-4.9); Alkaline Phosphatase 92 U/L (41-126); BUN/Creat Ratio 17.75 Ratio (12.00-20.00); Blood Urea Nitrogen 14.2 mg/dL (9.0-27.0); Calcium 9.6 mg/dL (8.7-10.3); Carbon Dioxide 27.8 mmol/L (21.6-31.8); Chloride 100 mmol/L (96-109); Glucose 107 mg/dL (70-110); Potassium 4.8 mmol/L (3.5-5.5); Sodium 139 mmol/L (135-145); Total Bilirubin 0.3 mg/dL (0.3-1.2); Total Protein 7.2 g/dL (6.2-8.2)
== END | disposition home or self-care (01) ==
LOC: LABWHC1 09:55
PROVIDERS: ATTEND Dermatology MOHS-Micrographic Surgery
DX: L40.0 Psoriasis vulgaris (principal); Z79.899 Other long term (current) drug therapy
CPT/HCPCS: 36415; 80053; 85025; 86480

== ENCOUNTER → 2024-02-19 | Outpatient (CLI) | payer MEDICARE ==
[2024-02-19 13:03] LABS: African American GFR (CKD) >90 (>60 ml/min/1.73 sqM); Blood Urea Nitrogen 16 mg/dL (9-20); Non-African American GFR(CKD) >90 (>60 ml/min/1.73 sqM)
--- NOTE | 2024-02-19 14:14 | CT ---
EXAMINATION TYPE: CT chest w con CT DLP: 975.1 mGycm, Automated exposure control for dose reduction was used. DATE OF EXAM: 02/19/2024 2:06 PM COMPARISON: Chest radiograph 02/09/2020 CLINICAL INDICATION:Male, 63 years old with history of R04.2 HEMOPTYSIS; PHH, Hemoptysis x 1 week TECHNIQUE: Multiple axial images were obtained through the chest following the administration of 100 cc of Isovue 300. . Coronal and sagittal reformats reviewed. FINDINGS: LUNGS/ PLEURA: No pleural effusion, pneumothorax, or focal consolidation. Mild bibasilar subsegmental atelectasis. Minimal biapical paraseptal emphysematous changes. Pleural-based right middle lobe 5 mm pulmonary nodule (series 4, image 40). AIRWAY: Patent and unremarkable.. HEART: Size within normal limits.No pericardial effusion. Moderate coronary arterial calcifications. MEDIASTINUM: No evidence of adenopathy. Post-CABG changes. VASCULATURE: No aortic aneurysm. MUSCULOSKELETAL: No acute osseous abnormalities. Postsurgical changes of the sternum with wires and f ixation hardware. Mild multilevel degenerative disc disease of the thoracic spine. SOFT TISSUES/LYMPH NODES: Unremarkable. LOWER NECK: No significant findings. UPPER ABDOMEN: No significant findings. IMPRESSION: 1. No acute thoracic process. 2. Right middle lobe 5 mm pulmonary nodule. In a low-risk patient, no follow-up is recommended. In a high-risk patient consider optional CT chest at 12 months. [facility], , 02/19/2024 2:12 PM
== END | disposition home or self-care (01) ==
LOC: RADCTMAIN 12:10
PROVIDERS: ATTEND Internal Medicine
DX: R04.2 Hemoptysis (principal); R91.1 Solitary pulmonary nodule
CPT/HCPCS: 82565; 84520; 71260; 36415; Q9967

== ENCOUNTER 2024-02-23 13:51 | Inpatient (IN) | payer MEDICARE ==
--- NOTE | 2024-02-23 14:22 | ED ---
Wound/Laceration HPI - General Source: patient, RN notes reviewed Mode of arrival: wheelchair Limitations: no limitations <Carly Avilez - Last Filed: 02/23/24 14:20> <Veronica Bejarano - Last Filed: 02/29/24 18:18> - General Chief Complaint: Wound/Laceration Stated Complaint: Left foot infection Time Seen by Provider: 02/23/24 14:20 - History of Present Illness Initial Comments: Quick [id number] male type 2 diabetes for left foot infection. He has been on Keflex for about a week for infection of left foot however it has been spreading up the foot and becoming more red and painful. (Carly Avilez) 63-year-old male presents to the emergency department for evaluation of left foot infection. He reports that he has been treated outpatient with antibiotics for the past week with no improvement in his symptoms. He notes increasing swelling, redness to the left lower extremity. Patient notes that the wound is on the top of his toes and his PCP. He denies any recent fever, chills. He does admit that he is a diabetic which is uncontrolled. (Veronica Bejarano) - Related Data Home Medications Medication Instructions Recorded Confirmed Insulin NPH Hum/Reg Insulin Hm 40 unit SQ BID-W/MEALS 01/19/21 02/24/24 [NovoLIN 70-30 100 UNIT/ML VIAL] Albuterol Inhaler [Ventolin Hfa 2 puff INHALATION RT-Q4H PRN 02/24/24 02/24/24 Inhaler] Ezetimibe [Zetia] 10 mg PO DAILY 02/24/24 02/24/24 Famotidine [Pepcid] 20 mg PO BID 02/24/24 02/24/24 Semaglutide [Ozempic] 1 mg SQ SA 02/24/24 02/24/24 lisinopriL [Zestril] 10 mg PO DAILY 02/24/24 02/24/24 metFORMIN HCL [Glucophage] 500 mg PO BID-W/MEALS 02/24/24 02/24/24 Previous Rx's Medication Instructions Recorded Aspirin 81 mg PO DAILY #30 tab 02/11/22 Atorvastatin [Lipitor] 40 mg PO DAILY #30 tab 02/11/22 Furosemide [Lasix] 20 mg PO DAILY #30 tab 12/19/22 Isosorbide Mononitrate ER [Imdur] 30 mg PO DAILY #30 tab 02/11/22 Nystatin 100,000 Unit/gm Powd 1 applic TOPICAL BID 14 Days #1 02/27/24 [Mycostatin Powder] dispenser cefuroxime axetiL [Ceftin] 500 mg PO BID 7 Days #14 tab 02/27/24 Allergies Allergy/AdvReac Type Severity Reaction Status Date / Time No Known Allergies Allergy Verified 02/24/24 08:41 Review of Systems ROS Other: All systems not noted in ROS Statement are negative. <Carly Avilez - Last Filed: 02/23/24 14:20> ROS Other: All systems not noted in ROS Statement are negative. <Veronica Bejarano - Last Filed: 02/29/24 18:18> ROS Statement: Those systems with pertinent positive or pertinent negative responses have been documented in the HPI. Past Medical History Past Medical History: Coronary Artery Disease (CAD), COPD, Diabetes Mellitus, Fibromyalgia, Sleep Apnea/CPAP/BIPAP Additional Past Medical History / Comment(s): Ty II DM, Vertigo when head tilts back, Psoriasis, RAJESH LL edema History of Any Multi-Drug Resistant Organisms: None Reported Past Surgical History: Appendectomy, Coronary Bypass/CABG, Heart Catheterization Additional Past Surgical History / Comment(s): Back-CA Past Anesthesia/Blood Transfusion Reactions: No Reported Reaction Past Psychological History: No Psychological Hx Reported Smoking Status: Current every day smoker Past Alcohol Use History: Rare Past Drug Use History: Marijuana - Past Family History Father History Unknown: Yes Family Medical History: Diabetes Mellitus Additional Family Medical History / Comment(s): of Colon CA Mother History Unknown: Yes Family Medical History: CVA/TIA Additional Family Medical History / Comment(s): Rheumatic fever-all valves replaced multiple times. from CVA <Carly Avilez - Last Filed: 02/23/24 14:20> General Exam Limitations: no limitations <Carly Avilez - Last Filed: 02/23/24 14:20> Limitations: no limitations General appearance: alert, in no apparent distress Head exam: Present: atraumatic, normocephalic, normal inspection Eye exam: Present: normal appearance, PERRL, EOMI. Absent: scleral icterus, conjunctival injection, periorbital swelling ENT exam: Present: normal exam, mucous membranes moist Neck exam: Present: normal inspection. Absent: tenderness, meningismus, lymphadenopathy Respiratory exam: Present: normal lung sounds bilaterally. Absent: respiratory distress, wheezes, rales, rhonchi, stridor Cardiovascular Exam: Present: other (Heart sounds difficult to assess due to body habitus) Extremities exam: Present: full ROM, tenderness, pedal edema, other (Swelling and erythema to the left lower extremity, wound over the dorsum of the left foot just proximal to the 2nd through 4th digits.) Neurological exam: Present: alert, oriented X3 Psychiatric exam: Present: normal affect, normal mood Skin exam: Present: warm, dry, erythema, other (Swelling and erythema to the left lower extremity, wound over the dorsum of the left foot just proximal to the 2nd through 4th digits.). Absent: intact, normal color <Veronica Bejarano - Last Filed: 02/29/24 18:18> - General Exam Comments Initial Comments: Visual Physical Exam Vital signs reviewed General: Well-appearing, nontoxic, no acute distress. Head: Normocephalic, atraumatic Eyes: PERRLA, EOMI ENT: Airway patent Chest: Nonlabored breathing Skin: No visual rash, normal skin tone Neuro: Alert and oriented 3 Musculoskeletal: No gross abnormalities (Carly Avilez) Course Vital Signs 02/23/24 02/24/24 02/24/24 14:03 03:04 06:18 Temperature 98.3 F Pulse Rate 73 62 65 Pulse Rate [ Right] Respiratory 18 16 18 Rate Blood Pressure 145/78 123/78 152/73 Blood Pressure [Left Arm] O2 Sat by Pulse 93 L 95 95 Oximetry 02/24/24 02/24/24 02/24/24 08:56 11:18 13:27 Temperature 97.5 F L 97.5 F L Pulse Rate 66 56 L 61 Pulse Rate [ Right] Respiratory 20 18 20 Rate Blood Pressure 111/69 119/67 120/69 Blood Pressure [Left Arm] O2 Sat by Pulse 98 95 94 L Oximetry 02/24/24 14:00 Temperature 97.6 F Pulse Rate Pulse Rate [ 55 L Right] Respiratory 16 Rate Blood Pressure Blood Pressure 105/67 [Left Arm] O2 Sat by Pulse 97 Oximetry Medical Decision Making <Carly Avilez - Last Filed: 02/23/24 14:20> - Lab Data Result diagrams: 02/27/24 03:47 02/27/24 03:47 <Veronica Bejarano - Last Filed: 02/29/24 18:18> - Medical Decision Making I completed the quick note portion of this chart signed Carly Avilez PA-C (Carly Avilez) Was pt. sent in by a medical professional or institution (, [facility], [facility], urgent care, hospital, or senior care...) When possible be specific @ -No Did you speak to anyone other than the patient for history (EMS, parent, family, police, friend...)? What history was obtained from this source @ -No Did you review nursing and triage notes (agree or disagree)? Why? @ -I reviewed and agree with nursing and triage notes Were old charts reviewed (outside hosp., previous admission, EMS record, old EKG, old radiological studies, urgent care reports/EKG's, senior care records)? Report findings @ -No old charts were reviewed Differential Diagnosis (chest pain, altered mental status, abdominal pain women, abdominal pain men, vaginal bleeding, weakness, fever, dyspnea, syncope, headache, dizziness, GI bleed, back pain, seizure, CVA, palpatations, mental health, musculoskeletal)? @ -Cellulitis, diabetic foot wound, wet gangrene, this list is not all inclusive EKG interpreted by me (3pts min.). @ -None X-rays interpreted by me (1pt min.). @ -None done CT interpreted by me (1pt min.). @ -None done U/S interpreted by me (1pt. min.). @ -None done What testing was considered but not performed or refused? (CT, X-rays, U/S, labs)? Why? @ -None What meds were considered but not given or refused? Why? @ -None Did you discuss the management of the patient with other professionals (professionals i.e. , [facility], [facility], lab, RT, psych nurse, social security assessor, steward/stewardess wine, teacher, code enforcement officer, complex case manager)? Give summary @ -Management discussed with hospitalist who is accepting of the admission Was smoking cessation discussed for >3mins.? @ -No Was critical care preformed (if so, how long)? @ -No Were there social determinants of health that impacted care today? How? (Homelessness, low income, unemployed, alcoholism, drug addiction, transportation, low edu. Level, literacy, decrease access to med. care, senior care, rehab)? @ -No Was there de-escalation of care discussed even if they declined (Discuss DNR or withdrawal of care, Hospice)? DNR status @ -No What co-morbidities impacted this encounter? (DM, HTN, Smoking, COPD, CAD, Cancer, CVA, ARF, Chemo, Hep., AIDS, mental health diagnosis, sleep apnea, morbi d obesity)? @ -None Was patient admitted / discharged? Hospital course, mention meds given and rout e, prescriptions, significant lab abnormalities, going to OR and other pertinent info. @ -Admitted. Patient presented to the emergency department for evaluation of left foot wound. Laboratory studies obtained revealing no significant leukocytosis. No significant lactic acidosis. Based on the appearance of the wound the patient would benefit from IV antibiotics. He will be admitted to the hospital with a consultation to infectious disease. He is understanding agreeable plan. Patient stable at time of admission. Case discussed with Dr. Vo Undiagnosed new problem with uncertain prognosis? @ -No Drug Therapy requiring intensive monitoring for toxicity (Heparin, Nitro, Insulin, Cardizem)? @ -No Were any procedures done? @ -No Diagnosis/symptom? @ -Wet gangrene Acute, or Chronic, or Acute on Chronic? @ -Acute Uncomplicated (without systemic symptoms) or Complicated (systemic symptoms)? @ -Complicated Side effects of treatment? @ -No Exacerbation, Progression, or Severe Exacerbation? @ -No Poses a threat to life or bodily function? How? (Chest pain, USA, GA, pneumonia, PE, COPD, DKA, ARF, appy, cholecystitis, CVA, Diverticulitis, Homicidal, Suicidal, threat to staff... and all critical care pts) @ -No (Veronica Bejarano) - Lab Data Lab Results 02/23/24 02/23/24 02/23/24 Range/Units 19:56 20:28 20:28 WBC 7.0 (3.8-10.6) k/uL RBC 6.15 H (4.30-5.90) m/uL Hgb 18.1 H (13.0-17.5) gm/dL Hct 55.2 H (39.0-53.0) % MCV 89.7 (80.0-100.0) fL MCH 29.5 (25.0-35.0) pg MCHC 32.8 (31.0-37.0) g/dL RDW 14.3 (11.5-15.5) % Plt Count 184 (150-450) k/uL MPV 7.4 Neutrophils % 65 % Lymphocytes % 24 % Monocytes % 7 % Eosinophils % 2 % Basophils % 1 % Neutrophils # 4.6 (1.3-7.7) k/uL Lymphocytes # 1.7 (1.0-4.8) k/uL Monocytes # 0.5 (0-1.0) k/uL Eosinophils # 0.1 (0-0.7) k/uL Basophils # 0.1 (0-0.2) k/uL Hypochromasia Slight Sodium 136 L (137-145) mmol/L Potassium 4.4 (3.5-5.1) mmol/L Chloride 102 (98-107) mmol/L Carbon Dioxide 27 (22-30) mmol/L Anion Gap 7 mmol/L BUN 13 (9-20) mg/dL Creatinine 0.60 L (0.66-1.25) mg/dL Est GFR (CKD-EPI)AfAm >90 (>60 ml/min/1.73 sqM) Est GFR (CKD-EPI)NonAf >90 (>60 ml/min/1.73 sqM) Glucose 109 H (74-99) mg/dL POC Glucose (mg/dL) 86 (70-110) mg/dL POC Glu Damage Prevention Coordinator LENNY Avila Plasma Lactic Acid Nikolai (0.7-2.0) mmol/L Calcium 9.3 (8.4-10.2) mg/dL Total Bilirubin 1.0 (0.2-1.3) mg/dL AST 25 (17-59) U/L ALT 23 (4-49) U/L Alkaline Phosphatase 95 (38-126) U/L C-Reactive Protein <0.5 (<1.0) mg/dL Total Protein 7.1 (6.3-8.2) g/dL Albumin 4.2 (3.5-5.0) g/dL 12/30/24 Range/Units 20:28 WBC (3.8-10.6) k/uL RBC (4.30-5.90) m/uL Hgb (13.0-17.5) gm/dL Hct (39.0-53.0) % MCV (80.0-100.0) fL MCH (25.0-35.0) pg MCHC (31.0-37.0) g/dL RDW (11.5-15.5) % Plt Count (150-450) k/uL MPV Neutrophils % % Lymphocytes % % Monocytes % % Eosinophils % % Basophils % % Neutrophils # (1.3-7.7) k/uL Lymphocytes # (1.0-4.8) k/uL Monocytes # (0-1.0) k/uL Eosinophils # (0-0.7) k/uL Basophils # (0-0.2) k/uL Hypochromasia Sodium (137-145) mmol/L Potassium (3.5-5.1) mmol/L Chloride (98-107) mmol/L Carbon Dioxide (22-30) mmol/L Anion Gap mmol/L BUN (9-20) mg/dL Creatinine (0.66-1.25) mg/dL Est GFR (CKD-EPI)AfAm (>60 ml/min/1.73 sqM) Est GFR (CKD-EPI)NonAf (>60 ml/min/1.73 sqM) Glucose (74-99) mg/dL POC Glucose (mg/dL) (70-110) mg/dL POC Glu Damage Prevention Coordinator ID Plasma Lactic Acid Nikolai 1.6 (0.7-2.0) mmol/L Calcium (8.4-10.2) mg/dL Total Bilirubin (0.2-1.3) mg/dL AST (17-59) U/L ALT (4-49) U/L Alkaline Phosphatase (38-126) U/L C-Reactive Protein (<1.0) mg/dL Total Protein (6.3-8.2) g/dL Albumin (3.5-5.0) g/dL Disposition <Carly Avilez - Last Filed: 02/23/24 14:20> Is patient prescribed a controlled substance at d/c from ED?: No <Veronica Bejarano - Last Filed: 02/29/24 18:18> Clinical Impression: Diabetic foot infection, Failure of outpatient treatment Disposition: ADMITTED IP TO THIS HOSP Condition: Stable
--- NOTE | 2024-02-23 15:54 | XR ---
EXAMINATION TYPE: XR foot complete 3 views LT DATE OF EXAM: 02/23/2024 3:30 PM COMPARISON: 02/18/2024 CLINICAL INDICATION: Male, 63 years old with history of left foot infection, , FINDINGS: Generalized soft tissue swelling, moderate to severe degenerative change first MTP joint. Type I vers us type II cyst or navicular. There appears to be retained surgical clip or jhon along the medial distal leg just above the ankle level. Small posterior and plantar heel spurs. Possible wound at the medial heel. No discrete underlying lytic destruction is seen. IMPRESSION: 1. Diffuse soft tissue swelling with possible wound at the medial aspect of the heel. No underlying r adiographic evidence for osteomyelitis at this time. Follow-up as clinically indicated. 2. Moderate to severe degenerative change first MTP joint. 3. A couple retained surgical clips/jhon in the medial lower leg soft tissues just above the ankle . [facility], , 02/23/2024 3:52 PM
[2024-02-23 19:59] LABS: Glucose,Whole Blood 86 mg/dL (70-110)
[2024-02-23 20:37] LABS: Basophils # (A) 0.1 k/uL (0-0.2); Basophils % (A) 1 %; Eosinophils # (A) 0.1 k/uL (0-0.7); Eosinophils % (A) 2 %; HGB 18.1 gm/dL (13.0-17.5); Hypochromasia Slight; Lymphocytes # (A) 1.7 k/uL (1.0-4.8); Lymphocytes % (A) 24 %; MCH 29.5 pg (25.0-35.0); MCHC 32.8 g/dL (31.0-37.0); MCV 89.7 fL (80.0-100.0); Mean Platelet Volume 7.4; Monocytes # (A) 0.5 k/uL (0-1.0); Monocytes % (A) 7 %; Neutrophils # (A) 4.6 k/uL (1.3-7.7); Neutrophils % (A) 65 %; Platelet Count 184 k/uL (150-450); RBC 6.15 m/uL (4.30-5.90); RDW 14.3 % (11.5-15.5)
[2024-02-23 20:42] LABS: HCT 55.2 % (39.0-53.0)
[2024-02-23 20:48] LABS: ALT 23 U/L (4-49); AST 25 U/L (17-59); African American GFR (CKD) >90 (>60 ml/min/1.73 sqM); Albumin 4.2 g/dL (3.5-5.0); Alkaline Phosphatase 95 U/L (38-126); Anion Gap 7 mmol/L; Blood Urea Nitrogen 13 mg/dL (9-20); C Reactive Protein <0.5 mg/dL (<1.0); Calcium 9.3 mg/dL (8.4-10.2); Carbon Dioxide 27 mmol/L (22-30); Chloride 102 mmol/L (98-107); Glucose 109 mg/dL (74-99); Non-African American GFR(CKD) >90 (>60 ml/min/1.73 sqM); Potassium 4.4 mmol/L (3.5-5.1); Sodium 136 mmol/L (137-145); Total Protein 7.1 g/dL (6.3-8.2)
[2024-02-23] MEDS ORDERED: VANCOMYCIN IV PER PHARMACY 1 EACH MISC MISCELLANE PRN (21:24)
[2024-02-23] MEDS: HYDROmorphone 1 MG/ML 1 ML SYRINGE IVP STA (21:28)
[2024-02-23] MEDS: VANCOMYCIN 2,500 MG in SODIUM CHLORIDE 0.9% 500 ML 500 ML IVPB ONE (22:15)
--- NOTE | 2024-02-23 22:25 | US ---
EXAMINATION TYPE: US venous doppler duplex LE LT DATE OF EXAM: 02/23/2024 9:25 PM COMPARISON: US 2021 CLINICAL INDICATION: Male, 63 years old with history of swelling, redness; Patient has wound on foot and redness and swelling in calf, Pain TECHNIQUE: The lower extremity deep venous system is examined utilizing real time linear array sonog vidhya with graded compression, color doppler sonography, and spectral doppler. SIDE PERFORMED: Left FINDINGS: VESSELS IMAGED: Common Femoral Vein Deep Femoral Vein Greater Saphenous Vein * Femoral Vein Popliteal Vein Small Saphenous Vein * Proximal Calf Veins (* superficial vessels) Slightly limited due to body habitus Left Leg: Appears negative for dvt , Color Doppler imaging shows patency of the vessels. Spectral wa veforms are within normal limits. IMPRESSION: 1. No evidence of deep vein thrombosis of the left lower extremity. Limited evaluation of the posterior tibial veins secondary to patient body habitus. Subcutaneous edema at the level of ankle noted on last images. [facility], , 02/23/2024 10:23 PM
[2024-02-24] MEDS ORDERED: ACETAMINOPHEN TAB 325 MG TAB PO PRN
[2024-02-24] MEDS ORDERED: NALOXONE 0.4 MG/ML 1 ML VIAL IV PRN
[2024-02-24] MEDS ORDERED: KETOROLAC 15 MG/ML 1 ML VIAL IVP PRN
[2024-02-24] MEDS ORDERED: DEXTROSE 50% SYRINGE 50 ML IVP PRN ×4 (00:01→10:14)
[2024-02-24] MEDS: SODIUM CHLORIDE 0.9% 1,000 ML IV SCH (01:39)
[2024-02-24] MEDS: HYDROmorphone 1 MG/ML 1 ML SYRINGE IVP PRN (01:42)
[2024-02-24] MEDS: VANCOMYCIN 2,000 MG in SODIUM CHLORIDE 0.9% 500 ML 500 ML IVPB SCH (06:16)
[2024-02-24 08:53] LABS: Glucose,Whole Blood 123 mg/dL (70-110)
[2024-02-24] MEDS: INSULIN ASPART (NovoLOG) 100 UNIT/ML VIAL SQ SCH (08:53)
[2024-02-24] MEDS ORDERED: ALBUTEROL NEBULIZED 2.5 MG/3 ML INHALATION PRN (10:12)
[2024-02-24] MEDS: ISOSORBIDE MONONITRATE ER 30 MG TAB.ER.24H PO SCH (11:16)
[2024-02-24] MEDS: FAMOTIDINE 20 MG TAB PO SCH (11:16)
[2024-02-24] MEDS: FUROSEMIDE 20 MG TAB PO SCH (11:16)
[2024-02-24] MEDS: CEFEPIME 2 GM in SODIUM CHLORIDE 0.9% 100 ML IVPB SCH (11:16)
[2024-02-24] MEDS: ASPIRIN 81 MG PO SCH (11:16)
[2024-02-24] MEDS: lisinopriL 10 MG TAB PO SCH (11:16)
[2024-02-24] MEDS: INSULIN DETEMIR (LEVEMIR) 100 UNIT/ML SYR SQ SCH (11:24)
[2024-02-24 11:25] LABS: Glucose,Whole Blood 147 mg/dL (70-110)
[2024-02-24] MEDS: ceFAZolin 3 GM in SODIUM CHLORIDE 0.9% 100 ML IVPB SCH (15:52)
--- NOTE | 2024-02-24 16:39 | P.HPIM ---
History of Present Illness H&P Date: 02/24/24 history of present illness: This is a 63-year-old male patient with past medical history significant for diabetes mellitus, history of coronary artery disease, COPD, obstructive sleep apnea, fibromyalgia, psoriasis, history of CABG who presented to ER with a complaint of left foot ulcer/infection. Patient stated that he has chronic swelling in the legs, was following wound care, has blisters on and off on the back of the legs. Patient stated that he noticed left foot ulcers, redness swelling and pain for the last few weeks, took Keflex for about 10 days but symptoms continued to get worse so he decided come to the ED. Patient denied any fever or chills. In the ED patient was afebrile, heart rate 66, respiratory rate 20, blood pressure 111/69, saturating 98% on 3 L. WBC 7.0, hemoglobin 18.1, platelet 184. BMP was unremarkable. Lactate was normal. CRP less than 0.5. Ultrasound of left lower extremitylimited but negative for DVT. X-ray left foot showed diffuse soft tissue swelling, no obvious osteomyelitis, showed moderate to severe degenerative changes of first MTP joint. Assessment and plan: Diabetic foot ulcer/cellulitis: Left Presents with left foot swelling, pain, erythema Previous wound culture reviewedshowed Staph aureus and Pseudomonas and strep. ID consulted Currently on vancomycin and cefazolin Elevate left lower extremity Rony wrap Diabetes mellitus: Accu-Cheks, diabetic diet Levemir Sliding-scale insulin. History of coronary artery disease: COPD: Obstructive sleep apnea Continue home meds DVT prophylaxis Lovenox Monitor vital signs and labs Labs and medication were reviewed. Continue same treatment. Further recommendations as per clinical course of the patient REVIEW OF SYSTEMS: CONSTITUTIONAL: No fever, no malaise, no fatigue. HEENT: No recent visual problems or hearing problems. Denied any sore throat. CARDIOVASCULAR: No chest pain, orthopnea, PND, no palpitations, no syncope. PULMONARY: No shortness of breath, no cough, no hemoptysis. GASTROINTESTINAL: No diarrhea, no nausea, no vomiting, no abdominal pain. NEUROLOGICAL: No headaches, no weakness, no numbness. HEMATOLOGICAL: Denies any bleeding or petechiae. GENITOURINARY: Denies any burning micturition, frequency, or urgency. MUSCULOSKELETAL/RHEUMATOLOGICAL: Left foot pain, lower leg swelling. ENDOCRINE: Denies any polyuria or polydipsia. The rest of the 14-point review of systems is negative. PHYSICAL EXAMINATION: GENERAL: The patient is A&O x3, NAD HEENT: EOMI, Sclerae anicteric, Moist Mucous membranes Neck: Supple, Non tender, No JVD PULMONARY: Equal breath souds B/L, No wheezing, No crackles. CARDIOVASCULAR: S1, S2 present. No murmurs, rubs, or gallops. ABDOMEN: Soft, nontender, nondistended, normoactive bowel sounds. No guarding or rebound tenderness. MUSCULOSKELETAL: ++, Chronic stasis, left foot ulcer edema,forefoot, multiple toes. No cyanosis. No clubbing. Normal ROM. Intact peripheral pulses. NEUROLOGICAL: CN 2-12 grossly intact. No FND Dictation was produced using [employer] dictation software. please excuse any grammatical, word or spelling errors. Past Medical History Past Medical History: Coronary Artery Disease (CAD), COPD, Diabetes Mellitus, Fibromyalgia, Sleep Apnea/CPAP/BIPAP Additional Past Medical History / Comment(s): Ty II DM, Vertigo when head tilts back, Psoriasis, RAJESH LL edema History of Any Multi-Drug Resistant Organisms: None Reported Past Surgical History: Appendectomy, Coronary Bypass/CABG, Heart Catheterization Additional Past Surgical History / Comment(s): Back-CA Past Anesthesia/Blood Transfusion Reactions: No Reported Reaction Past Psychological History: No Psychological Hx Reported Additional Psychological History / Comment(s): Pt resides alone. He drives. He has a cane but does not use it. Smoking Status: Current every day smoker Past Alcohol Use History: Rare Additional Past Alcohol Use History / Comment(s): Pt started smoking in 1976 and is a 1/2 ppd smoker. Past Drug Use History: Marijuana Additional Drug Use History / Comment(s): Pt smokes marijuana for pain control, about 4 joints a day. - Past Family History Father History Unknown: Yes Family Medical History: Diabetes Mellitus Additional Family Medical History / Comment(s): of Colon CA Mother History Unknown: Yes Family Medical History: CVA/TIA Additional Family Medical History / Comment(s): Rheumatic fever-all valves replaced multiple times. from CVA Medications and Allergies Home Medications Medication Instructions Recorded Confirmed Type Insulin NPH Hum/Reg Insulin Hm 40 unit SQ BID-W/MEALS 01/19/21 02/24/24 History [NovoLIN 70-30 100 UNIT/ML VIAL] Aspirin 81 mg PO DAILY #30 tab 02/11/22 02/24/24 Rx Atorvastatin [Lipitor] 40 mg PO DAILY #30 tab 02/11/22 02/24/24 Rx Furosemide [Lasix] 20 mg PO DAILY #30 tab 02/11/22 02/24/24 Rx Isosorbide Mononitrate ER [Imdur] 30 mg PO DAILY #30 tab 02/11/22 02/24/24 Rx Albuterol Inhaler [Ventolin Hfa 2 puff INHALATION RT-Q4H PRN 02/24/24 02/24/24 History Inhaler] Cephalexin [Keflex] 500 mg PO Q6HR 02/24/24 02/24/24 History Ezetimibe [Zetia] 10 mg PO DAILY 02/24/24 02/24/24 History Famotidine [Pepcid] 20 mg PO BID 02/24/24 02/24/24 History Semaglutide [Ozempic] 1 mg SQ SA 02/24/24 02/24/24 History lisinopriL [Zestril] 10 mg PO DAILY 02/24/24 02/24/24 History metFORMIN HCL [Glucophage] 500 mg PO BID-W/MEALS 02/24/24 02/24/24 History Allergies Allergy/AdvReac Type Severity Reaction Status Date / Time No Known Allergies Allergy Verified 02/24/24 08:41 Physical Exam Vitals: Vital Signs Temp Pulse Pulse Resp BP BP Pulse Ox 02/24/24 14:00 97.6 F 55 L 16 105/67 97 02/24/24 13:27 97.5 F L 61 20 120/69 94 L 02/24/24 11:18 56 L 18 119/67 95 02/24/24 08:56 97.5 F L 66 20 111/69 98 02/24/24 06:18 65 18 152/73 95 02/24/24 03:04 62 16 123/78 95 Intake and Output 02/24/24 02/24/24 02/24/24 06:59 14:59 22:59 Other: Weight 176.901 kg Results CBC & Chem 7: 02/23/24 20:28 02/23/24 20:28 Labs: Abnormal Lab Results - Last 24 Hours (Table) 02/23/24 02/23/24 02/24/24 Range/Units 20:28 20:28 08:52 RBC 6.15 H (4.30-5.90) m/uL Hgb 18.1 H (13.0-17.5) gm/dL Hct 55.2 H (39.0-53.0) % Sodium 136 L (137-145) mmol/L Creatinine 0.60 L (0.66-1.25) mg/dL Glucose 109 H (74-99) mg/dL POC Glucose (mg/dL) 123 H (70-110) mg/dL 02/24/24 Range/Units 11:23 RBC (4.30-5.90) m/uL Hgb (13.0-17.5) gm/dL Hct (39.0-53.0) % Sodium (137-145) mmol/L Creatinine (0.66-1.25) mg/dL Glucose (74-99) mg/dL POC Glucose (mg/dL) 147 H (70-110) mg/dL Thrombosis Risk Factor Assmnt - Choose All That Apply Each Factor Represents 1 point: Obesity (BMI >25), Swollen legs (current) Each Risk Factor Represents 2 Points: Age 61-74 years Thrombosis Risk Factor Assessment Total Risk Factor Score: 4 Thrombosis Risk Factor Assessment Level: Moderate Risk
[2024-02-24] MEDS: ENOXAPARIN 40 MG/0.4 ML SYRINGE SQ SCH (16:52)
[2024-02-24] MEDS: TRIAMCINOLONE 0.1% CREAM 80 GM TUBE TOPICAL SCH (16:54)
[2024-02-24] MEDS: NYSTATIN 100,000UNIT/GM CREAM 30 GM TUBE TOPICAL SCH (16:55)
[2024-02-24 17:03] LABS: Glucose,Whole Blood 108 mg/dL (70-110)
[2024-02-24 20:10] LABS: Glucose,Whole Blood 137 mg/dL (70-110)
[2024-02-24] MEDS: ATORVASTATIN 40 MG TAB PO SCH (20:19)
[2024-02-24] MEDS ORDERED: NYSTAT-TRIAMCIN 100,000-0.1 UNIT/GM-% CREAM 30 GM TUBE TOPICAL SCH (21:00)
[2024-02-25] MEDS ORDERED: VANCOMYCIN TROUGH DUE 1 EACH MISC MISCELLANE ONE (05:00)
[2024-02-25 07:13] LABS: Glucose,Whole Blood 118 mg/dL (70-110)
--- NOTE | 2024-02-25 07:14 | P.CONS ---
History of Present Illness - Reason for Consult Consult date: 02/24/24 Foot wound Requesting physician: Veronica Bejarano - Chief Complaint Left foot pain swelling redness x days - History of Present Illness Patient is a 63-year-old with a past medical history significant for coronary artery disease COPD diabetes mellitus fibromyalgia sleep apnea did have a chronic bilateral extremity swelling and a previous episode of cellulitis presenting to the hospital with worsening left foot swelling and redness that has been getting worse over the last 1 week and did not respond to an outpatient oral Keflex patient be complaining of pain to the left foot describing it to be sharp moderate to severe intensity with some radiation to the left upper leg and did have some drainage from the left foot patient denies high-grade fever did have some chills on presentation to the hospital the patient was afebrile and appeared Recorded subsequently patient was nontachycardic hypotensive mildly hypoxic currently on 2 L nasal cannula oxygen he did have a white count of 7.0 creatinine 0.60 electrolytes has been normal liver enzymes are normal blood cultures obtained are currently pending he did have a lower extremity venous Doppler that has been negative for DVT patient was started on vancomycin and cefepime infectious disease was consulted for further management of antibiotic therapy Review of Systems Positive point and negatives has been mentioned in the HPI, complete review of systems was performed and all other systems are negative Past Medical History Past Medical History: Coronary Artery Disease (CAD), COPD, Diabetes Mellitus, Fibromyalgia, Sleep Apnea/CPAP/BIPAP Additional Past Medical History / Comment(s): Ty II DM, Vertigo when head tilts back, Psoriasis, RAJESH LL edema History of Any Multi-Drug Resistant Organisms: None Reported Past Surgical History: Appendectomy, Coronary Bypass/CABG, Heart Catheterization Additional Past Surgical History / Comment(s): Back-CA Past Anesthesia/Blood Transfusion Reactions: No Reported Reaction Past Psychological History: No Psychological Hx Reported Smoking Status: Current every day smoker Past Alcohol Use History: Rare Past Drug Use History: Marijuana - Past Family History Father History Unknown: Yes Family Medical History: Diabetes Mellitus Additional Family Medical History / Comment(s): of Colon CA Mother History Unknown: Yes Family Medical History: CVA/TIA Additional Family Medical History / Comment(s): Rheumatic fever-all valves replaced multiple times. from CVA Medications and Allergies Home Medications Medication Instructions Recorded Confirmed Type Insulin NPH Hum/Reg Insulin Hm 40 unit SQ BID-W/MEALS 01/19/21 02/24/24 History [NovoLIN 70-30 100 UNIT/ML VIAL] Aspirin 81 mg PO DAILY #30 tab 02/11/22 02/24/24 Rx Atorvastatin [Lipitor] 40 mg PO DAILY #30 tab 02/11/22 02/24/24 Rx Furosemide [Lasix] 20 mg PO DAILY #30 tab 02/11/22 02/24/24 Rx Isosorbide Mononitrate ER [Imdur] 30 mg PO DAILY #30 tab 02/11/22 02/24/24 Rx Albuterol Inhaler [Ventolin Hfa 2 puff INHALATION RT-Q4H PRN 02/24/24 02/24/24 History Inhaler] Cephalexin [Keflex] 500 mg PO Q6HR 02/24/24 02/24/24 History Ezetimibe [Zetia] 10 mg PO DAILY 02/24/24 02/24/24 History Famotidine [Pepcid] 20 mg PO BID 02/24/24 02/24/24 History Semaglutide [Ozempic] 1 mg SQ SA 02/24/24 02/24/24 History lisinopriL [Zestril] 10 mg PO DAILY 02/24/24 02/24/24 History metFORMIN HCL [Glucophage] 500 mg PO BID-W/MEALS 02/24/24 02/24/24 History Allergies Allergy/AdvReac Type Severity Reaction Status Date / Time No Known Allergies Allergy Verified 02/24/24 08:41 Physical Exam Vitals: Vital Signs Temp Pulse Resp BP Pulse Ox 02/24/24 11:18 56 L 18 119/67 95 02/24/24 08:56 97.5 F L 66 20 111/69 98 02/24/24 06:18 65 18 152/73 95 02/24/24 03:04 62 16 123/78 95 02/23/24 14:03 98.3 F 73 18 145/78 93 L GENERAL DESCRIPTION: Middle-aged male lying in bed, no distress. No tachypnea or accessory muscle of respiration use. HEENT: Shows Pallor , no scleral icterus. Oral mucous membrane is dry. No pharyngeal erythema or thrush NECK: Trachea central, no thyromegaly. LUNGS: Unlabored breathing. Clear to auscultation anteriorly. No wheeze or crackle. HEART: S1, S2, regular rate and rhythm. No loud murmur ABDOMEN: Soft, no tenderness , guarding or rigidity, no organomegaly EXTREMITIES: Bilateral lower extremity with swelling he did have erythematous rash to the left foot with evidence of athlete's foot SKIN: No rash, no masses palpable. NEUROLOGICAL: The patient is awake, alert, oriented x3, mood and affect normal. Results CBC & Chem 7: 02/23/24 20:28 02/23/24 20: Labs: Abnormal Lab Results - Last 24 Hours (Table) 02/23/24 02/23/24 02/24/24 Range/Units 20:28 20: 08:52 RBC 6.15 H (4.30-5.90) m/uL Hgb 18.1 H (13.0-17.5) gm/dL Hct 55.2 H (39.0-53.0) % Sodium 136 L (137-145) mmol/L Creatinine 0.60 L (0.66-1.25) mg/dL Glucose 109 H (74-99) mg/dL POC Glucose (mg/dL) 123 H (70-110) mg/dL Assessment and Plan (1) Cellulitis of left foot Current Visit: Yes Status: Acute Code(s): L03.116 - CELLULITIS OF LEFT LOWER LIMB SNOMED Code(s): 08707380359948999 (2) Athletes foot Current Visit: Yes Status: Acute Code(s): B35.3 - TINEA PEDIS SNOMED Code(s): 4529731 (3) Diabetic foot infection Current Visit: Yes Status: Acute Code(s): E11.628 - TYPE 2 DIABETES MELLITUS WITH OTHER SKIN COMPLICATIONS; L08.9 - LOCAL INFECTION OF THE SKIN AND SUBCUTANEOUS TISSUE, UNSP SNOMED Code(s): 878470201 (4) Failure of outpatient treatment Current Visit: Yes Status: Acute Code(s): Z78.9 - OTHER SPECIFIED HEALTH STATUS SNOMED Code(s): 184982981 Plan: 1patient presented to hospital with increasing pain swelling redness to the left foot area and this patient noted to have evidence of extensive athlete's foot and concerning for secondary cellulitis and possible component of fungal dermatitis failing outpatient oral Keflex therapy. 2 will apply Mycolog cream to the erythematous rash to the left foot area. 3discontinue vancomycin and cefepime. 4we will start the patient on cefazolin 3 g Q8. 5we will apply Rony wrap to both-just above the toe to below the knee. We will follow on clinical condition and cultures to further adjust medication if needed Thank you for this consultation we will follow the patient along with you Dictation was produced using [employer] dictation software. please excuse any grammatical, word or spelling errors. Time with Patient: Greater than 30
[2024-02-25] MEDS: EZETIMIBE 10 MG TAB PO SCH (08:42)
[2024-02-25 09:14] LABS: Basophils # (A) 0.04 X 10*3/uL (0.00-0.10); Basophils % (A) 0.6 %; Eosinophils # (A) 0.11 X 10*3/uL (0.04-0.35); Eosinophils % (A) 1.7 %; HCT 50.4 % (39.6-50.0); HGB 15.7 g/dL (13.0-17.0); Lymphocytes # (A) 1.41 X 10*3/uL (0.90-5.00); Lymphocytes % (A) 21.6 %; MCH 27.8 pg (27.0-32.0); MCHC 31.2 g/dL (32.0-37.0); MCV 89.4 FL (80.0-97.0); Mean Platelet Volume 10.3 FL (9.5-12.2); Monocytes # (A) 0.82 X 10*3/uL (0.20-1.00); Monocytes % (A) 12.5 %; NRBC Per 100 WBC 0 X 10*3/uL (0.00-0.01); Neutrophils # (A) 4.13 X 10*3/uL (1.80-7.70); Neutrophils % (A) 63.1 %; Platelet Count 202 X 10*3/uL (140-440); RBC 5.64 X 10*6/uL (4.40-5.60); RDW 14.6 % (11.5-14.5); WBC 6.54 X 10*3/uL (4.50-10.00)
[2024-02-25 09:32] LABS: BUN/Creat Ratio 13.43 Ratio (12.00-20.00); Blood Urea Nitrogen 9.4 mg/dL (9.0-27.0); Carbon Dioxide 28.1 mmol/L (21.6-31.8); Chloride 101 mmol/L (96-109); Glucose 121 mg/dL (70-110); Potassium 4.9 mmol/L (3.5-5.5); Sodium 137 mmol/L (135-145)
[2024-02-25 12:12] LABS: Glucose,Whole Blood 101 mg/dL (70-110)
[2024-02-25] MEDS: NYSTATIN 100,000 UNIT/GM POWD 15 GM TOPICAL SCH (13:25)
--- NOTE | 2024-02-25 14:25 | P.PN ---
Subjective Progress Note Date: 02/25/24 Interval History: This is a 63-year-old male patient with past medical history significant for diabetes mellitus, history of coronary artery disease, COPD, obstructive sleep apnea, fibromyalgia, psoriasis, history of CABG who presented to ER with a complaint of left foot ulcer/infection. Patient stated that he has chronic swelling in the legs, was following wound care, has blisters on and off on the back of the legs. Patient stated that he noticed left foot ulcers, redness swelling and pain for the last few weeks, took Keflex for about 10 days but symptoms continued to get worse so he decided come to the ED. Patient denied any fever or chills. In the ED patient was afebrile, heart rate 66, respiratory rate 20, blood pressure 111/69, saturating 98% on 3 L. WBC 7.0, hemoglobin 18.1, platelet 184. BMP was unremarkable. Lactate was normal. CRP less than 0.5. Ultrasound of left lower extremitylimited but negative for DVT. X-ray left foot showed diffuse soft tissue swelling, no obvious osteomyelitis, showed moderate to severe degenerative changes of first MTP joint. 02/25/2024/patient was seen and examined today. Complains of left foot pain, patient feeling better after Rony wrap's. Afebrile, heart rate 68, respiratory rate 16, blood pressure 154/69, saturating 99% on 2 L. WBC 6.5, hemoglobin 15.7, platelet 202. BMP unremarkable. HbA1c 7.7. Currently on vancomycin and cefazolin, infectious disease following. Blood sugars controlled. Assessment and plan: Diabetic foot ulcer/cellulitis: Left Presents with left foot swelling, pain, erythema Previous wound culture reviewedshowed Staph aureus and Pseudomonas and strep. ID consulted Currently on vancomycin and cefazolin Elevate left lower extremity Rony wrap Diabetes mellitus: Accu-Cheks, diabetic diet Levemir Sliding-scale insulin. HbA1c 7.7. History of coronary artery disease: COPD: Obstructive sleep apnea Continue home meds DVT prophylaxis Lovenox Monitor vital signs and labs Labs and medication were reviewed. Continue same treatment. Further recommendations as per clinical course of the patient PHYSICAL EXAMINATION: GENERAL: The patient is A&O x3, NAD HEENT: EOMI, Sclerae anicteric, Moist Mucous membranes Neck: Supple, Non tender, No JVD PULMONARY: Equal breath souds B/L, No wheezing, No crackles. CARDIOVASCULAR: S1, S2 present. No murmurs, rubs, or gallops. ABDOMEN: Soft, nontender, nondistended, normoactive bowel sounds. No guarding or rebound tenderness. MUSCULOSKELETAL: ++, Chronic stasis, left foot ulcer edema,forefoot, multiple toes. No cyanosis. No clubbing. Normal ROM. Intact peripheral pulses. NEUROLOGICAL: CN 2-12 grossly intact. No FND REVIEW OF SYSTEMS: CONSTITUTIONAL: No fever, no malaise, no fatigue. HEENT: No recent visual problems or hearing problems. Denied any sore throat. CARDIOVASCULAR: No chest pain, orthopnea, PND, no palpitations, no syncope. PULMONARY: No shortness of breath, no cough, no hemoptysis. GASTROINTESTINAL: No diarrhea, no nausea, no vomiting, no abdominal pain. NEUROLOGICAL: No headaches, no weakness, no numbness. HEMATOLOGICAL: Denies any bleeding or petechiae. GENITOURINARY: Denies any burning micturition, frequency, or urgency. MUSCULOSKELETAL/RHEUMATOLOGICAL: Left foot pain, lower leg swelling. The rest of the 14-point review of systems is negative. Dictation was produced using [employer] dictation software. please excuse any grammatical, word or spelling errors. Objective - Vital Signs Vital signs: Vital Signs Temp 97.5 F L 02/25/24 11:54 Pulse 68 02/25/24 11:54 Resp 16 02/25/24 11:54 BP 154/69 02/25/24 11:54 Pulse Ox 99 02/25/24 11:54 FiO2 Intake & Output 02/24/24 02/25/24 02/25/24 18:59 06:59 18:59 Intake Total 118 598 Balance 118 598 Weight 176.901 kg Intake: Oral 118 598 Other: Voiding Method Toilet Toilet Toilet # Voids 6 1 - Labs CBC & Chem 7: 02/25/24 05:09 02/25/24 05:09 Labs: Abnormal Lab Results - Last 24 Hours (Table) 02/24/24 02/25/24 02/25/24 Range/Units 20:08 05:09 05:09 RBC 5.64 H (4.40-5.60) X 10*6/uL Hct 50.4 H (39.6-50.0) % MCHC 31.2 L (32.0-37.0) g/dL RDW 14.6 H (11.5-14.5) % Glucose (70-110) mg/dL POC Glucose (mg/dL) 137 H (70-110) mg/dL Hemoglobin A1c 7.7 H (<=6.0) % 02/25/24 02/25/24 Range/Units 05:09 07:11 RBC (4.40-5.60) X 10*6/uL Hct (39.6-50.0) % MCHC (32.0-37.0) g/dL RDW (11.5-14.5) % Glucose 121 H (70-110) mg/dL POC Glucose (mg/dL) 118 H (70-110) mg/dL Hemoglobin A1c (<=6.0) % Microbiology - Last 24 Hours (Table) 02/23/24 21:38 Blood Culture - Preliminary Blood
[2024-02-25 17:14] LABS: Glucose,Whole Blood 104 mg/dL (70-110)
[2024-02-25 20:23] LABS: Glucose,Whole Blood 233 mg/dL (70-110)
--- NOTE | 2024-02-25 22:15 | P.PN ---
Subjective Progress Note Date: 02/25/24 Principal diagnosis: Reason for follow-up is left foot cellulitis and athlete's foot Patient is a 63-year-old with a past medical history significant for coronary artery disease COPD diabetes mellitus fibromyalgia sleep apnea did have a chronic bilateral extremity swelling and a previous episode of cellulitis presenting to the hospital with worsening left foot swelling and redness. On today's evaluation that is 02/25/2024,the patient denies any fever or any chills, patient is breathing comfortably on 2 L nasal cannula oxygen, the patient denies chest pain shortness of breath and no significant cough, patient denies abdominal pain, no nausea vomiting or diarrhea. Pain and swelling to the left foot has slightly decreased in intensity. Patient did have white count of 6.54, creatinine 0.7 blood cultures are pending Objective - Vital Signs Vital signs: Vital Signs Temp 97.5 F L 02/25/24 11:54 Pulse 68 02/25/24 11:54 Resp 16 02/25/24 11:54 BP 154/69 02/25/24 11:54 Pulse Ox 99 02/25/24 11:54 FiO2 Intake & Output 02/24/24 02/25/24 02/25/24 18:59 06:59 18:59 Intake Total 118 1678 Balance 118 1678 Weight 176.901 kg Intake: Oral 118 1678 Other: Voiding Method Toilet Toilet Toilet # Voids 6 1 5 # Bowel Movements 1 - Exam GENERAL DESCRIPTION: Middle-age male lying in bed in no distress RESPIRATORY SYSTEM: Unlabored breathing , decreased breath sounds at bases HEART: S1 S2 regular rate and rhythm , ABDOMEN: Soft , no tenderness EXTREMITIES: Diffuse swelling to the leg left foot redness slightly decreased - Labs CBC & Chem 7: 02/25/24 05:09 02/25/24 05:09 Labs: Abnormal Lab Results - Last 24 Hours (Table) 02/24/24 02/25/24 02/25/24 Range/Units 20:08 05:09 05:09 RBC 5.64 H (4.40-5.60) X 10*6/uL Hct 50.4 H (39.6-50.0) % MCHC 31.2 L (32.0-37.0) g/dL RDW 14.6 H (11.5-14.5) % Glucose (70-110) mg/dL POC Glucose (mg/dL) 137 H (70-110) mg/dL Hemoglobin A1c 7.7 H (<=6.0) % 02/25/24 02/25/24 Range/Units 05:09 07:11 RBC (4.40-5.60) X 10*6/uL Hct (39.6-50.0) % MCHC (32.0-37.0) g/dL RDW (11.5-14.5) % Glucose 121 H (70-110) mg/dL POC Glucose (mg/dL) 118 H (70-110) mg/dL Hemoglobin A1c (<=6.0) % Microbiology - Last 24 Hours (Table) 02/23/24 21:38 Blood Culture - Preliminary Blood Assessment and Plan (1) Cellulitis of left foot Current Visit: Yes Status: Acute Code(s): L03.116 - CELLULITIS OF LEFT LOWER LIMB SNOMED Code(s): 54138329289294693 (2) Athletes foot Current Visit: Yes Status: Acute Code(s): B35.3 - TINEA PEDIS SNOMED Code(s): 0825068 (3) Diabetic foot infection Current Visit: Yes Status: Acute Code(s): E11.628 - TYPE 2 DIABETES MELLITUS WITH OTHER SKIN COMPLICATIONS; L08.9 - LOCAL INFECTION OF THE SKIN AND SUBCUTANEOUS TISSUE, UNSP SNOMED Code(s): 780051098 (4) Failure of outpatient treatment Current Visit: Yes Status: Acute Code(s): Z78.9 - OTHER SPECIFIED HEALTH STA TUS SNOMED Code(s): 027504520 Plan: 1patient presented to hospital with increasing pain swelling redness to the left foot area and this patient noted to have evidence of extensive athlete's foot and concerning for secondary cellulitis and possible component of fungal dermatitis failing outpatient oral Keflex therapy. 2 will apply Mycolog cream to the erythematous rash to the left foot area and lasted 24 in between the toes. Followed by Rony wrap to keep the swelling down 3patient to continue with cefazolin 3 g Q8. Dictation was produced using [employer] software. please excuse any grammatical, word or spelling errors. Time with Patient: Less than 30
[2024-02-26 07:27] LABS: Glucose,Whole Blood 114 mg/dL (70-110)
--- NOTE | 2024-02-26 10:52 | P.PN ---
Subjective Progress Note Date: 02/26/24 history of present illness: This is a 63-year-old male patient with past medical history significant for diabetes mellitus, history of coronary artery disease, COPD, obstructive sleep apnea, fibromyalgia, psoriasis, history of CABG who presented to ER with a complaint of left foot ulcer/infection. Patient stated that he has chronic swelling in the legs, was following wound care, has blisters on and off on the back of the legs. Patient stated that he noticed left foot ulcers, redness swelling and pain for the last few weeks, took Keflex for about 10 days but symptoms continued to get worse so he decided come to the ED. Patient denied any fever or chills. In the ED patient was afebrile, heart rate 66, respiratory rate 20, blood pressure 111/69, saturating 98% on 3 L. WBC 7.0, hemoglobin 18.1, platelet 184. BMP was unremarkable. Lactate was normal. CRP less than 0.5. Ultrasound of left lower extremitylimited but negative for DVT. X-ray left foot showed diffuse soft tissue swelling, no obvious osteomyelitis, showed moderate to severe degenerative changes of first MTP joint. Dr. Alexandra group covering 02-18-2024 through 02-26-2024 On 02/26/2024 patient is alert and oriented x 3. Patient remains on IV Kefzol infectious disease services following. Patient complaining about constipation will add Colace. Patient denies chest pain or shortness of breath. Patient denies nausea vomiting or diarrhea. Patient denies any urinary burning or frequency. Current vital signs temp 97.6, heart rate 55, respiratory rate 16, blood pressure 139/76 with a pulse ox of 97% on 2 L. Wound care following Objective - Vital Signs Vital signs: Vital Signs Temp 97.6 F 02/26/24 07:28 Pulse 55 L 02/26/24 07:28 Resp 16 02/26/24 07:28 BP 139/76 02/26/24 07:28 Pulse Ox 97 02/26/24 07:28 FiO2 Intake & Output 02/25/24 02/26/24 02/26/24 18:59 06:59 18:59 Intake Total 2158 100 240 Balance 2158 100 240 Intake: Intake, IV Titration 100 Amount ceFAZolin 3 gm In Sodium 100 Chloride 0.9% 100 ml @ 200 mls/hr IVPB Q8HR [facility] Rx#:[id number] Oral 2158 240 Other: Voiding Method Toilet Toilet # Voids 5 2 # Bowel Movements 1 - Exam Head normocephalic Neck supple Lungs clear to auscultation bilaterally no wheezing or crackles Heart regular rate and rhythm S1-S2, no rub or gallop Abdomen is soft nontender nondistended positive bowel sounds no hepatosplenomegaly Extremities left leg wrapped significant erythema noted Neuro alert and orientated to 3 - Labs CBC & Chem 7: 02/25/24 05:09 02/25/24 05:09 Labs: Abnormal Lab Results - Last 24 Hours (Table) 02/25/24 02/26/24 Range/Units 20:22 07:26 POC Glucose (mg/dL) 233 H 114 H (70-110) mg/dL Microbiology - Last 24 Hours (Table) 02/23/24 21:38 Blood Culture - Preliminary Blood Assessment and Plan Assessment: Cellulitis of left lower extremity secondary to diabetic foot ulcer History of diabetes mellitus History of coronary artery disease History of obstructive sleep apnea History of fibromyalgia DVT prophylaxis Lovenox. Infectious disease services following Blood culture pending Patient michael on IV antibiotics
[2024-02-26] MEDS: DOCUSATE 100 MG CAP PO SCH (11:47)
[2024-02-26 12:14] LABS: Glucose,Whole Blood 95 mg/dL (70-110)
--- NOTE | 2024-02-26 13:27 | P.PN ---
Subjective Progress Note Date: 02/26/24 Principal diagnosis: Reason for follow-up is left foot cellulitis and athlete's foot Patient is a 63-year-old with a past medical history significant for coronary artery disease COPD diabetes mellitus fibromyalgia sleep apnea did have a chronic bilateral extremity swelling and a previous episode of cellulitis presenting to the hospital with worsening left foot swelling and redness. On today's evaluation that is 02/26/2024,the patient remains to be afebrile, patient is on 2 L nasal cannula supplemental oxygen and denies any shortness of breath no chest pain or cough.Patient denies having any nausea or vomiting, no abdominal pain and no diarrhea has been reported, pain to the left foot has decreased in intensity. Patient did not have lab draw today blood cultures are pending Objective - Vital Signs Vital signs: Vital Signs Temp 98.5 F 02/26/24 12:21 Pulse 61 02/26/24 12:21 Resp 16 02/26/24 12:21 BP 191/67 02/26/24 12:21 Pulse Ox 94 L 02/26/24 12:21 FiO2 Intake & Output 02/25/24 02/26/24 02/26/24 18:59 06:59 18:59 Intake Total 2158 100 480 Balance 2158 100 480 Intake: Intake, IV Titration 100 Amount ceFAZolin 3 gm In Sodium 100 Chloride 0.9% 100 ml @ 200 mls/hr IVPB Q8HR [facility] Rx#:[id number] Oral 2158 480 Other: Voiding Method Toilet Toilet # Voids 5 2 # Bowel Movements 1 - Exam GENERAL DESCRIPTION: Middle-age male lying in bed in no distress RESPIRATORY SYSTEM: Unlabored breathing , decreased breath sounds at bases HEART: S1 S2 regular rate and rhythm , ABDOMEN: Soft , no tenderness EXTREMITIES: Diffuse swelling to the leg left foot redness slightly decreased - Labs CBC & Chem 7: 02/25/24 05:09 02/25/24 05:09 Labs: Abnormal Lab Results - Last 24 Hours (Table) 02/25/24 02/26/24 Range/Units 20:22 07:26 POC Glucose (mg/dL) 233 H 114 H (70-110) mg/dL Microbiology - Last 24 Hours (Table) 02/23/24 21:38 Blood Culture - Preliminary Blood Assessment and Plan (1) Cellulitis of left foot Current Visit: Yes Status: Acute Code(s): L03.116 - CELLULITIS OF LEFT LOWER LIMB SNOMED Code(s): 64912423242924417 (2) Athletes foot Current Visit: Yes Status: Acute Code(s): B35.3 - TINEA PEDIS SNOMED Code(s): 5392041 (3) Diabetic foot infection Current Visit: Yes Status: Acute Code(s): E11.628 - TYPE 2 DIABETES MELLITUS WITH OTHER SKIN COMPLICATIONS; L08.9 - LOCAL INFECTION OF THE SKIN AND SUBCUTANEOUS TISSUE, UNSP SNOMED Code(s): 311467806 (4) Failure of outpatient treatment Current Visit: Yes Status: Acute Code(s): Z78.9 - OTHER SPECIFIED HEALTH STATUS SNOMED Code(s): 370981782 Plan: 1patient presented to hospital with increasing pain swelling redness to the left foot area and this patient noted to have evidence of extensive athlete's foot and concerning for secondary cellulitis and possible component of fungal dermatitis failing outpatient oral Keflex therapy. 2patient to continue with Mycolog cream to the erythematous rash to the left foot area nystatin powder in between the toes. Followed by Rony wrap to keep the swelling down 3I will continue with cefazolin 3 g Q8 for another 24 hours before switching him to oral Dictation was produced using [employer] dictation software. please excuse any grammatical, word or spelling errors. Time with Patient: Less than 30
[2024-02-26 17:07] LABS: Glucose,Whole Blood 124 mg/dL (70-110)
[2024-02-26 20:46] LABS: Glucose,Whole Blood 139 mg/dL (70-110)
[2024-02-27 09:02] LABS: Basophils # (A) 0.04 X 10*3/uL (0.00-0.10); Basophils % (A) 0.6 %; Eosinophils # (A) 0.09 X 10*3/uL (0.04-0.35); Eosinophils % (A) 1.4 %; HCT 52.9 % (39.6-50.0); HGB 16.1 g/dL (13.0-17.0); Lymphocytes # (A) 1.94 X 10*3/uL (0.90-5.00); Lymphocytes % (A) 31.2 %; MCH 27.4 pg (27.0-32.0); MCHC 30.4 g/dL (32.0-37.0); Mean Platelet Volume 10.7 FL (9.5-12.2); Monocytes # (A) 0.83 X 10*3/uL (0.20-1.00); Monocytes % (A) 13.3 %; NRBC Per 100 WBC 0 X 10*3/uL (0.00-0.01); Neutrophils % (A) 53.2 %; Platelet Count 216 X 10*3/uL (140-440); RBC 5.88 X 10*6/uL (4.40-5.60); RDW 14.3 % (11.5-14.5); WBC 6.22 X 10*3/uL (4.50-10.00)
[2024-02-27 09:26] VITALS: BP 160/87; PULSE 61; RESP 16; TEMP 97.7
[2024-02-27 09:35] LABS: ALT 24 U/L (10-49); AST 25 U/L (14-35); Albumin 3.8 g/dL (3.8-4.9); Albumin/Globulin Ratio 1.41 Ratio (1.60-3.17); Alkaline Phosphatase 91 U/L (41-126); BUN/Creat Ratio 16.43 Ratio (12.00-20.00); Blood Urea Nitrogen 11.5 mg/dL (9.0-27.0); Carbon Dioxide 27.8 mmol/L (21.6-31.8); Chloride 101 mmol/L (96-109); Globulin 2.7 g/dL (1.6-3.3); Glucose 152 mg/dL (70-110); Potassium 4.7 mmol/L (3.5-5.5); Sodium 137 mmol/L (135-145); Total Bilirubin 0.5 mg/dL (0.3-1.2); Total Protein 6.5 g/dL (6.2-8.2)
--- NOTE | 2024-02-27 11:06 | P.DS ---
Providers Date of admission: 02/24/24 00:02 Expected date of discharge: 02/27/24 Attending physician: Mart Isaac MD Consults: 02/24/24 00:00 Consult Physician Routine Consulting Provider: Chay Montes Consult Reason/Comments: foot wound Do you want consulting provider notified?: Yes, Notify in am Primary care physician: Aiyana Rambo [facility] Course: Discharge diagnosis Cellulitis of left lower extremity secondary to diabetic foot ulcer History of diabetes mellitus History of coronary artery disease History of obstructive sleep apnea History of fibromyalgia Hospital course history of present illness: This is a 63-year-old male patient with past medical history significant for diabetes mellitus, history of coronary artery disease, COPD, obstructive sleep apnea, fibromyalgia, psoriasis, history of CABG who presented to ER with a complaint of left foot ulcer/infection. Patient stated that he has chronic swe lling in the legs, was following wound care, has blisters on and off on the back of the legs. Patient stated that he noticed left foot ulcers, redness swelling and pain for the last few weeks, took Keflex for about 10 days but symptoms continued to get worse so he decided come to the ED. Patient denied any fever or chills. In the ED patient was afebrile, heart rate 66, respiratory rate 20, blood pressure 111/69, saturating 98% on 3 L. WBC 7.0, hemoglobin 18.1, platelet 184. BMP was unremarkable. Lactate was normal. CRP less than 0.5. Ultrasound of left lower extremitylimited but negative for DVT. X-ray left foot showed diffuse soft tissue swelling, no obvious osteomyelitis, showed moderate to severe degenerative changes of first MTP joint. Dr. Alexandra group covering 02-18-2024 through 02-26-2024 On 02/26/2024 patient is alert and oriented x 3. Patient remains on IV Kefzol infectious disease services following. Patient complaining about constipation will add Colace. Patient denies chest pain or shortness of breath. Patient denies nausea vomiting or diarrhea. Patient denies any urinary burning or frequency. Current vital signs temp 97.6, heart rate 55, respiratory rate 16, blood pressure 139/76 with a pulse ox of 97% on 2 L. Wound care following On 02/27/2024 patient is alert and oriented x 3. Discussed case with infectious disease services patient may be discharged on Ceftin and follow-up outpatient. Patient denies chest pain or shortness of breath. Patient denies nausea vomiting or diarrhea. Patient denies any urinary burning or frequency Patient Condition at Discharge: Stable Plan - Discharge Summary Discharge Rx Participant: No New Discharge Prescriptions: New cefuroxime axetiL [Ceftin] 500 mg PO BID 7 Days #14 tab Nystatin 100,000 Unit/gm Powd [Mycostatin Powder] 1 applic TOPICAL BID 14 Days #1 dispenser Continue Insulin NPH Hum/Reg Insulin Hm [NovoLIN 70-30 100 UNIT/ML VIAL] 40 unit SQ BID-W/MEALS Aspirin 81 mg PO DAILY #30 tab Atorvastatin [Lipitor] 40 mg PO DAILY #30 tab Furosemide [Lasix] 20 mg PO DAILY #30 tab Famotidine [Pepcid] 20 mg PO BID Isosorbide Mononitrate ER [Imdur] 30 mg PO DAILY #30 tab Albuterol Inhaler [Ventolin Hfa Inhaler] 2 puff INHALATION RT-Q4H PRN PRN Reason: Shortness Of Breath Ezetimibe [Zetia] 10 mg PO DAILY lisinopriL [Zestril] 10 mg PO DAILY Semaglutide [Ozempic] 1 mg SQ SA metFORMIN HCL [Glucophage] 500 mg PO BID-W/MEALS Discontinued Cephalexin [Keflex] 500 mg PO Q6HR Discharge Medication List Insulin NPH Hum/Reg Insulin Hm [NovoLIN 70-30 100 UNIT/ML VIAL] 40 unit SQ BID- W/MEALS 01/19/21 [History] Aspirin 81 mg PO DAILY #30 tab 02/11/22 [Rx] Atorvastatin [Lipitor] 40 mg PO DAILY #30 tab 02/11/22 [Rx] Furosemide [Lasix] 20 mg PO DAILY #30 tab 02/11/22 [Rx] Isosorbide Mononitrate ER [Imdur] 30 mg PO DAILY #30 tab 02/11/22 [Rx] Albuterol Inhaler [Ventolin Hfa Inhaler] 2 puff INHALATION RT-Q4H PRN 02/24/24 [History] Ezetimibe [Zetia] 10 mg PO DAILY 02/24/24 [History] Famotidine [Pepcid] 20 mg PO BID 02/24/24 [History] Semaglutide [Ozempic] 1 mg SQ SA 02/24/24 [History] lisinopriL [Zestril] 10 mg PO DAILY 02/24/24 [History] metFORMIN HCL [Glucophage] 500 mg PO BID-W/MEALS 02/24/24 [History] Nystatin 100,000 Unit/gm Powd [Mycostatin Powder] 1 applic TOPICAL BID 14 Days #1 dispenser 02/27/24 [Rx] cefuroxime axetiL [Ceftin] 500 mg PO BID 7 Days #14 tab 02/27/24 [Rx] Follow up Appointment(s)/Referral(s): Aiyana Ricks MD [Primary Care Provider] - 1-2 days Chay Montes MD [STAFF PHYSICIAN] - 1 Week Discharge Disposition: HOME SELF-CARE
--- NOTE | 2024-02-27 14:45 | P.PN ---
Subjective Progress Note Date: 02/27/24 Principal diagnosis: Reason for follow-up is left foot cellulitis and athlete's foot Patient is a 63-year-old with a past medical history significant for coronary artery disease COPD diabetes mellitus fibromyalgia sleep apnea did have a chronic bilateral extremity swelling and a previous episode of cellulitis presenting to the hospital with worsening left foot swelling and redness. On today's evaluation that is 02/27/2024, the patient continues to be afebrile, the patient is on room air and breathing comfortably, the Pt denies having any chest pain or cough, the patient denies having any abdominal pain no vomiting or any diarrhea patient pain to the lower extremity has decreased in intensity feeling better wants to go home. Patient white count 6.22, creatinine 0.7 blood culture have been negative so far Objective - Vital Signs Vital signs: Vital Signs Temp 97.7 F 02/27/24 07:13 Pulse 61 02/27/24 07:13 Resp 16 02/27/24 07:13 BP 160/87 02/27/24 07:13 Pulse Ox 91 L 02/27/24 07:13 FiO2 Intake & Output 02/26/24 02/27/24 02/27/24 18:59 06:59 18:59 Intake Total 2580 540 Balance 2580 540 Intake: Oral 2580 540 Other: # Voids 6 1 # Bowel Movements 1 - Exam GENERAL DESCRIPTION: Middle-age male lying in bed in no distress RESPIRATORY SYSTEM: Unlabored breathing , decreased breath sounds at bases HEART: S1 S2 regular rate and rhythm , ABDOMEN: Soft , no tenderness EXTREMITIES: Left foot swelling redness has decreased no drainage - Labs CBC & Chem 7: 02/27/24 03:47 02/27/24 03:47 Labs: Abnormal Lab Results - Last 24 Hours (Table) 02/26/24 02/26/24 02/27/24 Range/Units 17:06 20:44 03:47 RBC 5.88 H (4.40-5.60) X 10*6/uL Hct 52.9 H (39.6-50.0) % MCHC 30.4 L (32.0-37.0) g/dL Glucose (70-110) mg/dL POC Glucose (mg/dL) 124 H 139 H (70-110) mg/dL Albumin/Globulin Ratio (1.60-3.17) Ratio 02/27/24 Range/Units 03:47 RBC (4.40-5.60) X 10*6/uL Hct (39.6-50.0) % MCHC (32.0-37.0) g/dL Glucose 152 H (70-110) mg/dL POC Glucose (mg/dL) (70-110) mg/dL Albumin/Globulin Ratio 1.41 L (1.60-3.17) Ratio Microbiology - Last 24 Hours (Table) 02/23/24 21:38 Blood Culture - Preliminary Blood Assessment and Plan (1) Cellulitis of left foot Status: Acute Code(s): L03.116 - CELLULITIS OF LEFT LOWER LIMB SNOMED Cod e(s): 50341063223995828 (2) Athletes foot Status: Acute Code(s): B35.3 - TINEA PEDIS SNOMED Code(s): 9135569 (3) Diabetic foot infection Status: Acute Code(s): E11.628 - TYPE 2 DIABETES MELLITUS WITH OTHER SKIN COMPLICATIONS; L08.9 - LOCAL INFECTION OF THE SKIN AND SUBCUTANEOUS TISSUE, UNSP SNOMED Code(s): 696300610 (4) Failure of outpatient treatment Status: Acute Code(s): Z78.9 - OTHER SPECIFIED HEALTH STATUS SNOMED Code(s): 431800185 Plan: 1patient presented to hospital with increasing pain swelling redness to the left foot area and this patient noted to have evidence of extensive athlete's foot and concerning for secondary cellulitis and possible component of fungal dermatitis failing outpatient oral Keflex therapy. 2patient to continue with Mycolog cream to the erythematous rash to the left foot area and nystatin powder in between the toes also advised Rony wrap to the leg to keep the swelling down 3patient feels therapy with oral Ceftin 500 mg twice daily for 7 days on discharge discussed with the [employer] for admitting team Dictation was produced using [employer] dictation software. please excuse any grammatical, word or spelling errors. Time with Patient: Less than 30
== END 2024-02-27 12:14 | disposition home or self-care (01) | DRG 638 ==
LOC: EC 13:51 → 5NMEDONC 02-24 00:02
PROVIDERS: ADMIT Internal Medicine; ATTEND Internal Medicine
DX: E11.628 Type 2 diabetes mellitus with other skin complications (principal); L03.116 Cellulitis of left lower limb; E11.621 Type 2 diabetes mellitus with foot ulcer; L97.529 Non-pressure chronic ulcer of other part of left foot with unspecified severity; I25.10 Atherosclerotic heart disease of native coronary artery without angina pectoris; G47.33 Obstructive sleep apnea (adult) (pediatric); M79.7 Fibromyalgia; J44.9 Chronic obstructive pulmonary disease, unspecified; K59.00 Constipation, unspecified; F17.200 Nicotine dependence, unspecified, uncomplicated; B35.3 Tinea pedis; I87.2 Venous insufficiency (chronic) (peripheral); Z95.1 Presence of aortocoronary bypass graft; Z79.84 Long term (current) use of oral hypoglycemic drugs; Z79.4 Long term (current) use of insulin; Z79.82 Long term (current) use of aspirin; Z79.899 Other long term (current) drug therapy; Z83.3 Family history of diabetes mellitus
CPT/HCPCS: 36415; 80048; 80053; 83036; 83605; 85025; 86140; 87040; 96361; 96365; 96366; 96367; 96375; 96376; 99285

== ENCOUNTER → 2024-03-12 | Outpatient (CLI) | payer MEDICARE ==
[2024-03-12 14:34] LABS: Basophils % (A) 1 %; Eosinophils # (A) 0.1 k/uL (0-0.7); Eosinophils % (A) 1 %; HCT 51.3 % (39.0-53.0); HGB 16.4 gm/dL (13.0-17.5); Lymphocytes # (A) 1.9 k/uL (1.0-4.8); Lymphocytes % (A) 24 %; MCH 28.6 pg (25.0-35.0); MCHC 31.9 g/dL (31.0-37.0); MCV 89.5 fL (80.0-100.0); Monocytes # (A) 0.8 k/uL (0-1.0); Monocytes % (A) 10 %; Neutrophils # (A) 5.1 k/uL (1.3-7.7); Neutrophils % (A) 64 %; Platelet Count 169 k/uL (150-450); RBC 5.73 m/uL (4.30-5.90); RDW 14.1 % (11.5-15.5)
[2024-03-12 21:48] LABS: ALT 29 U/L (10-49); AST 34 U/L (14-35)
== END | disposition home or self-care (01) ==
LOC: LABWHC1 13:33
PROVIDERS: ATTEND Dermatology MOHS-Micrographic Surgery
DX: L40.0 Psoriasis vulgaris (principal); Z79.899 Other long term (current) drug therapy
CPT/HCPCS: 36415; 82565; 84450; 84460; 85025; 86480

== ENCOUNTER 2024-08-03 10:28 | Day surgery (SDC) | payer MEDICARE, OTHER ==
[~2024-08-03 10:28] MED LIST: LACTATED RINGERS 1,000 ML IV SCH
[2024-08-03] MEDS: IV FLUID CONTINUATION 1,000 ML IV ONE (11:20)
[2024-08-03 11:32] VITALS: TEMP 97.8
[2024-08-03 11:42] LABS: Glucose,Whole Blood 116 mg/dL (70-110)
[2024-08-03] MEDS ORDERED: fentaNYL (PF) 50 MCG/ML 2 ML AMP ONE (12:13)
[2024-08-03] MEDS ORDERED: PROPOFOL 10 MG/ML 20 ML VIAL IV ONE (12:13)
[2024-08-03] MEDS ORDERED: LIDOCAINE 2% (PF) 20 MG/ML 5 ML VIAL ONE (12:13)
--- NOTE | 2024-08-03 12:25 | P.PCN ---
Date of Procedure: 08/03/24 Procedure(s) Performed: BRIEF HISTORY: Patient is a 63-year-old, pleasant, white male as a part of evaluation of intermittent dysphagia to solids for the last 3 months duration. He does have longstanding history of GERD and is currently on Pepcid 20 mg daily PROCEDURE PERFORMED: Esophagogastroduodenoscopy with biopsy. PREOPERATIVE DIAGNOSIS: Intermittent dysphagia to solids. IV sedation per anesthesia. PROCEDURE: After informed consent was obtained, the patient was brought into the endoscopy unit. IV sedation was administered by Anesthesia under continuous monitoring. Initially the Olympus GIF-140 video endoscope was inserted into the mouth. Esophagus intubated without any difficulty. It was gradually advanced into the stomach and duodenum and carefully examined. The bulb and the second part of the duodenum appeared normal. The scope at this time was withdrawn to the stomach, adequately insufflated with air, and upon careful examination, mucosa of the antrum had diffuse gastritis and biopsies were done from this area. Mucosa, body, cardia and the fundus appeared normal. The scope was then withdrawn into the esophagus. The GE junction was located at 44 cm from the incisors. The esophagus appeared normal. There were no erosions or ulcerations seen. No evidence of esophageal stricture. Multiple biopsies were done from mid and distal esophagus rule out eosinophilic esophagitis and the patient tolerated the procedure well. IMPRESSION: 1. Mild diffuse antral gastritis. 2. Normal-appearing esophagus with no evidence of esophagitis or esophageal stricture. RECOMMENDATIONS: The findings of this examination were discussed with the patient as well as his family. He was advised to follow-up with the biopsy results. If he has persistent symptoms he was advised to follow-up in the office for further management of his symptoms..
[2024-08-03 12:53] VITALS: BP 129/86; PULSE 65; RESP 22
== END 2024-08-03 13:12 | disposition home or self-care (01) ==
LOC: ORWHC2ENDO 10:28
PROVIDERS: ATTEND Internal Medicine Gastroenterology
DX: K29.50 Unspecified chronic gastritis without bleeding (principal); K21.00 Gastro-esophageal reflux disease with esophagitis, without bleeding; D72.820 Lymphocytosis (symptomatic); E66.01 Morbid (severe) obesity due to excess calories; E11.9 Type 2 diabetes mellitus without complications; J44.9 Chronic obstructive pulmonary disease, unspecified; I25.10 Atherosclerotic heart disease of native coronary artery without angina pectoris; F17.200 Nicotine dependence, unspecified, uncomplicated; Z79.899 Other long term (current) drug therapy; Z79.84 Long term (current) use of oral hypoglycemic drugs; Z79.4 Long term (current) use of insulin; Z79.82 Long term (current) use of aspirin; Z79.51 Long term (current) use of inhaled steroids; Z95.5 Presence of coronary angioplasty implant and graft; Z68.43 Body mass index [BMI] 50.0-59.9, adult
CPT/HCPCS: 88305; 88342; 43239; J3010; J2704; J2003